=== PATIENT | male | born 1955 | race Caucasian/White ===

== ENCOUNTER 2019-08-12 18:36 | Observation (INO) | payer OTHER, MEDICARE, SELFPAY ==
[2019-08-12] VITALS (10 sets, daily range): BP systolic 145–157; BP diastolic 77–95; PULSE 58–75; RESP 13–18; TEMP 36.4–37.2; O2SAT 96–100; BMI 25.9; BMI 26.0
--- NOTE | 2019-08-12 18:42 | CT_ITS ---
We are attempting to reach an attending provider to discuss findings. An addendum with communication details will be sent when the communication is complete. STUDY: CT BRAIN WITHOUT CONTRAST REASON FOR EXAM: Male, 64 years old. Neurologic deficit RADIATION DOSAGE (If Supplied By Facility): CTDIvol = ( 44.99 ) mGy, DLP = ( 829.85 ) mGycm TECHNIQUE: Transaxial CT imaging of the brain was performed without administration of intravenous contrast material. Individualized dose optimization techniques were used for this CT. COMPARISON: No relevant priors. FINDINGS: Normal soft tissue structures. Normal calvarium. There is encephalomalacia of the left temporal lobe. There is mild diffuse atrophy. There are areas of decreased attenuation within the white matter tracts of the supratentorial brain, consistent with microvascular disease changes. There is an old lacunar infarct of the right thalamus. Normal brainstem. Normal cerebellum. There is no intracranial hemorrhage. There are no findings of an acute ischemic infarction. Normal visualized paranasal sinuses. CT/Brain/Head without Contrast IMPRESSION: Chronic involutional changes of the brain. Encephalomalacia of the left temporal lobe consistent with old infarct. Old lacunar infarct of the right thalamus. There is no intracranial hemorrhage or evidence of acute infarct. Electronically Signed: Jaxon Francis MD at 19:05 EST , Service support ,
--- NOTE | 2019-08-12 18:42 | EKG12_ITS ---
Test Reason : STROKE Blood Pressure : / mmHG Vent. Rate : 062 BPM Atrial Rate : 062 BPM P-R Int : 164 ms QRS Dur : 092 ms QT Int : 388 ms P-R-T Axes : 040 -19 032 degrees QTc Int : 393 ms Normal sinus rhythm Inferior-posterior infarct , age undetermined Abnormal ECG Confirmed by LEI GONZALEZ, FEI ([id number]), editor & co founder DAVID QUINONES ([id number]) on 08/15/2019 10:04:09 AM Referred By: Juju Li Confirmed By:FEI ODOM MD
[2019-08-12 18:48] LABS: Absolute Lymphocyte Count 3.53 X10^3/uL (0.83-4.51); Absolute Neutrophil Count 4.4 X10^3/uL (2.0-7.7); Basophil# 0.04 X10^3/uL; Basophil% 0.5 % (0-1); Eosinophil# 0.09 X10^3/uL; Hematocrit 45.5 % (40-54); Hemoglobin 15.2 g/dL (13.0-16.5); Lymphocyte # 3.53 X10^3/ul (4.0); Mean Corp Hgb Conc 33.4 g/dL (32-36); Mean Corpuscular Hgb 30.8 pg (27.0-32.0); Mean Corpuscular Volume 92.3 fL (80-94); Mean Platelet Vol. 9.7 fl (6.2-12.0); Monocyte# 0.71 X10^3/uL; NRBC Flagged by Analyzer 0 % (0-5); Neutrophil # 4.43 X10^3/uL (2.7-7.7); Neutrophil % 50.3 % (47-70); Platelet Count 257 K/mm3 (150-450); RBC Distribution Width SD 40.7 fl (35.1-43.9); Red Blood Count 4.93 M/mm3 (4.6-6.2); White Blood Count 8.8 K/mm3 (4.4-11.0)
--- NOTE | 2019-08-12 18:49 | RAD_ITS ---
STUDY: X-RAY CHEST REASON FOR EXAM: Male, 64 years old. Possible stroke TECHNIQUE: Single AP portable view of the chest. COMPARISON: None. FINDINGS: cardiac monitor leads are present. The lungs are clear and expanded. There is no demonstrated pleural abnormality. Normal size heart. Normal mediastinum and tanmay. Normal visualized pulmonary arteries. Normal visualized aortic arch and descending thoracic aorta. There are diffuse degenerative changes of the visualized thoracic spine. There are multiple old left-sided rib fractures. There is no demonstrated abnormality of the visualized soft tissue structures of the upper abdomen. RAD/Chest 1 View IMPRESSION: No acute cardiopulmonary disease process is seen. Electronically Signed: Jaxon Francis MD at 19:18 EST , Service support ,
--- NOTE | 2019-08-12 18:50 | CT_ITS ---
STUDY: CTA HEAD WITH CONTRAST REASON FOR EXAM: Male, 64 years old. RADIATION DOSAGE (If Supplied By Facility): CTDIvol = ( ) mGy, DLP = ( ) mGycm TECHNIQUE: CT angiography was performed with a multi-detector CT scanner. Data acquisition was obtained from the skull base through the vertex following intravenous administration of . MIP images were reconstructed from the axial data set. Post-processing of the angiographic images was performed, with multiplanar reformation and 3D reconstruction. Individualized dose optimization techniques were used for this CT. COMPARISON: No relevant priors. FINDINGS: Bilateral basilar skull carotids, bifurcations, anterior and middle cervical arteries and proximal branches are patent. There is a large left posterior communicating artery. Right posterior communicating artery is not seen. Posterior cerebral arteries, superior cerebellar arteries, basilar and vertebral arteries are patent. Dural venous sinuses are patent. Visualized brain parenchyma is unremarkable. IMPRESSION: 1. No large vessel occlusion. 2. Patent basal skull [place] of [place] and proximal branches. Electronically Signed: Marianelabijan Peggy, at 19:49 EST Tel , Service support , STUDY: CTA NECK WITH CONTRAST REASON FOR EXAM: Male, 64 years old. Stroke evaluation RADIATION DOSAGE (If Supplied By Facility): CTDIvol = ( ) mGy, DLP = ( ) mGycm TECHNIQUE: CT angiography with multi-detector data acquisition was performed from the aortic arch to the skull base following intravenous administration of . MIP images were reconstructed from the axial data set. Post-processing of the angiographic images was performed, with multiplanar reformation and 3D reconstruction. Individualized dose optimization techniques were used for this CT. COMPARISON: None. FINDINGS: The aortic arch has a normal branching pattern. There is brachycephalic, right greater than, right common carotid, left common carotid and left carotid arteries are patent. Bilateral external and internal carotid arteries are patent. Vertebral arteries arise bilaterally from the subclavian arteries, are codominant and patent throughout. There is mild burden of mixed calcific and lipid rich atherosclerosis. There is a 3.2 cm left parathyroid adenoma. Remainder of the soft tissues of the neck are unremarkable. There are degenerative changes in the cervical spine with mild spondylotic thecal sac stenosis at C5-C6 and C6-C7. CT/CTA Head AND Neck W/ Contrast IMPRESSION: 1. Patent cervical arteries. 2. Mild burden of atherosclerosis. 3. 3.2 cm left parathyroid adenoma. ENT referral is advised.. Electronically Signed: Alber Woods, at 19:52 EST Tel , Service support ,
--- NOTE | 2019-08-12 18:54 | ED.VIS.STROK ---
History of Present Illness Chief Complaint: Neuro S/Sx Informant: Patient, Significant Other Onset: Today Narrative: I was called to the room, this was a walk-in patient brought by his rio with a half an hour of what sounded like global aphasia, the nurse also briefly noticed the patient could not speak and was having difficulty getting any kind of words out. When I walked into the room patient had normal speech, he was lucid coherent. I did an immediate NIH stroke scale and it was 0. There is no history of recent trauma, although there is remote trauma with intracranial bleed. Past Medical History - Allergies and Home Meds Allergies/Adverse Reactions: Allergies piperacillin [From Zosyn] Allergy (Verified 08/12/19 19:20) Rash tazobactam [From Zosyn] Allergy (Verified 08/12/19 19:20) Rash Primary Care Physician: [facility],[place] [Primary Care Provider] - Past Medical History: - - History of hypertension, however his blood pressure apparently has been normal recently and has not taken any other medication, otherwise traumatic brain injury with intracranial bleed Review of Systems All systems negative except as indicated General: Denies: Fever Eyes: Denies: Visual changes - bilaterally Cardiovascular: Denies: Chest pain Respiratory: Denies: Dyspnea, Cough Gastrointestinal: Denies: Abdominal pain, Nausea Genitourinary: Denies: Dysuria Musculoskeletal: Denies: Myalgias, Arthralgias Skin: Denies: Rash, Abscess Neurological: Denies: Weakness Psych: Denies: Depression, Anxiety Hematologic: Denies: Easy bruising Allergy: Denies: Swelling of the mouth STROKE - NIHSS Initial 1a Level of Consciousness: 0 1b LOC Questions (Score 2 if aphasic/stupor): 0 1c LOC Commands (Only score 1st attempt): 0 2 Best Gaze (If aphasic, use reflexive mvmts.): 0 3 Visual: 0 4 Facial Palsy: 0 5 Motor Arm Right (UN = amputation/fusion): 0 5 Motor Arm Left: 0 6 Motor Leg Right: 0 6 Motor Leg Left: 0 7 Limb ataxia (Only + if out of proportion): 0 8 Sensory (Aphasia/stupor=0 or 1, coma=2): 0 9 Best Language: 0 10 Dysarthria (mute, coma=2, intubated=UN): 0 11 Extinction and Inattention (only scored if +): 0 Total Score: 0 General: Well nourished, Well developed Head: Normocephalic, Atraumatic Eyes: Perrl ENT: Moist mucous membranes, No rhinorrhea Neck: Supple Cardiovascular: Regular rate, Regular rhythm Respiratory: No distress, CTA bilaterally Abdomen: Soft, Nontender Extremities: No edema Skin: Normal color, No rash Neurological: Alert, Oriented x3 Diagnostic/Tx/Re-eval - Medical Decision Making Stroke Team Activated: Yes Reviewed Inclusion/Exclusion criteria: Yes - History of intracranial bleed IV Alteplase (t-PA) Administered: No - Patient has an NIH stroke scale of 0 and does not meet criteria for IV TPA Alteplase (t-PA) risks, benefits, alternative discussed: No - Does not meet criteria Not given: Patient refusal: Yes Patient does not meet criteria for TPA. NIH stroke scale is 0. I discussed with stroke neurologist at [facility] who agrees. I will admit the patient for stroke work-up. ED Disposition - Plan for ED Patient: Disposition: Psychiatric Hospital or Unit Diagnosis: TIA (transient ischemic attack)
[2019-08-12 18:56] LABS: Prothrombin Time (Protime)PT. 12.9 SECONDS (11.7-14.9)
[2019-08-12 18:57] LABS: Partial Thromboplast Time 27.4 Seconds (24.1-36.2)
[2019-08-12 19:08] LABS: Anion Gap 4 (5-15); BUN 16 mg/dL (7-18); BUN/Creat Ratio 15.7 RATIO (10-20); Calcium,Total 11.1 mg/dL (8.5-10.1); Chloride 106 mmol/L (98-107); Creatinine, Serum 1.02 mg/dL (0.70-1.30); EST Glomerular Filtration Rate 78 mL/min (>60); Est Glom Filt Rate - Afr Amer 94 mL/min (>60); Estimated Creatinine Clearance 74.55 ml/min; Glucose 87 mg/dL (74-106); Potassium 4.2 mmol/L (3.5-5.1); Sodium Level 139 mmol/L (136-145)
--- NOTE | 2019-08-12 20:26 | PCM.HP.STD ---
Problem List (1) TIA (transient ischemic attack) Status: Acute (2) Hypertension Status: Chronic Qualifiers: Hypertension type: essential hypertension Qualified Code(s): I10 - Essential (primary) hypertension (3) History of CVA (cerebrovascular accident) Status: Chronic (4) History of intracranial hemorrhage Status: Chronic (5) Anxiety and depression Status: Chronic (6) Hypercalcemia Status: Chronic (7) Parathyroid adenoma Status: Chronic History of Present Illness Date of Admission: 08/12/19 Chief Complaint: Asphasia, transient The patient is a 64 y/o M w/ PMHx: HTN not on regimen as recently hypotensive but prior was nor norvasc daily, Anxiety and Depression, Remote Hx Intracranial bleed treated at [facility] following trauma, Unknown Prior CVA noted on imaging upon current evaluation (CT head w/ L temporal lobe, lacunar infarct R thalamus) who presents to the [facility] ED on 08/12/19 with history of patient being brought in by his fianc?e with approximately 30-minute history of global aphasia, onset at 6:00 pm, presentation to the ED at 6:35 pm, noted to be unable to speak while attempting to order his meal, noting that he was cognizant of what was occurring and unable to get his words out. Upon evaluation in the emergency room patient had completely returned to his normal state with an NIH stroke scale of 0. Significant other present does state that he had no further neurological deficits or concerns at onset but she states he has been very irritable over the last week. Work-up in the ED included T 90.9, heart rate 75, BP 157/95, respiratory rate 18, 99% on room air, unremarkable CBC, unremarkable coags, BMP with calcium 11.1 otherwise unremarkable, troponin less than 0.015, CT head with chronic involutional changes of the brain with encephalomalacia of the left temporal lobe consistent with prior old infarct as well as old lacunar infarct of the right thalamic, no intracranial hemorrhage or evidence of acute infarct, CTA head neck with patent cervical arteries, mild burden of atherosclerosis, 3.2 similar left parathyroid adenoma, chest x-ray with no acute cardiopulmonary findings, EKG with SR without acute evidence of ischemia. Past Medical History Past Medical History (Chronic Problems): Chronic Problems Hypertension (Chronic) History of CVA (cerebrovascular accident) (Chronic) History of intracranial hemorrhage (Chronic) Anxiety and depression (Chronic) Hypercalcemia (Chronic) Parathyroid adenoma (Chronic) Allergies piperacillin [From Zosyn] Allergy (Verified 08/12/19 19:20) Rash tazobactam [From Zosyn] Allergy (Verified 08/12/19 19:20) Rash Home Medications: Ambulatory Orders Medication Instructions Recorded Risperidone 0.5 mg PO QHS 08/12/19 Surgical History: - - Bilateral inguinal and umbilical hernia repair, left elbow surgery following trauma. Psychiatric History: Anxiety, Depression Lives: Spouse/ Significant Other Smoking Status: Never smoker Tobacco Use: Non-smoker Alcohol: None Drugs: None - *Family History Maternal History Items: Cancer - Mother with history of throat cancer with concurrent tobacco usage. Paternal History Items: Cancer - Father with a history of prostate cancer. Sibling History Items: - Review of Systems Constitutional: Denies: Chills, Fever, Weight Change HEENT: Denies: Head Aches, Sinus Congestion, Sinus Drainage Cardiovascular: Denies: Chest Pain, Palpitations Respiratory: Denies: Cough, Shortness of breath at rest, Sputum production Gastrointestinal: Denies: Abdominal Pain, Nausea, Vomiting Genitourinary: Denies: Dysuria Musculoskeletal: Denies: Joint Pain, Joint Tenderness Skin: Denies: Rash, Wounds Neurological: Reports: - - Aphasia.. Denies: Focal weakness, Numbness, Tingling Psychiatric: Reports: Anxiety, Depression. Denies: Homicidal Ideations, Suicidal Ideations Hematologic/ Lymphatic: Denies: Easy Bruising, Easy Bleeding VTE Information - Inpt Only VTE Present on Admission: No VTE Mechan Device Prophylaxis: SCD's VTE Pharm Prophylaxis ordered?: Yes Patient Problems: Active and Suspected Problems TIA (transient ischemic attack) (Acute) Subjective: Seated upright in the ED bed, mildly irritable at having to stay but no acute distress and complete resolution of prior aphasia. Objective: Physical Examination: General: awake, alert, oriented x 3 and cooperative, seated upright in the ED bed in no apparent distress except mildly irritated. Skin: normal color, turgor, no icterus, cyanosis. HEENT: AT/NC, EOMI, PERRLA, MMM, no carotid bruits or JVD noted. Lungs: CTA bilaterally, moderate effort, mild decrease BL bases, no rales, ronchi or wheezing. Heart: Regular rate and rhythm; no gallop, rub audible. Abdomen: soft, overweight, NTTP, ND, normal BS, no HSM. Extremities: no cyanosis, clubbing, or edema. Neurological: patient awake, alert, oriented x 3; cognitive function intact; pupils equally reactive to light and accomodation; cranial nerves II-XII grossly normal, moving all 4 extremities, no focal deficits, strength preserved, finger-nose and [id number] appropriate, peripheral vision intact, sensation appropriate, negative Babinski. Psychiatric: affect appears mildly irritable but otherwise normal, no acute evidence of depressive or anxiety feelings. - Physical Exam Vitals/I&O's: Vital Signs Temp Pulse Resp BP Pulse Ox 98.9 F 62 17 145/85 H 98 08/12/19 18:38 08/12/19 20:25 08/12/19 20:25 08/12/19 20:25 08/12/19 20:25 Oxygen Delivery Method Room Air Weight: 181 lb 3.52 oz Body Mass Index (BMI) 25.9 Finger Stick Blood Glucose 87 Laboratory Results 08/12/19 18:38: WBC 8.8, RBC 4.93, Hgb 15.2, Hct 45.5, MCV 92.3, MCH 30.8, MCHC 33.4, RDW Std Deviation 40.7, RDW Coeff of [place] 12.0, Plt Count 257, MPV 9.7, Immature Gran % (Auto) 0.200, Neut % (Auto) 50.3, Lymph % (Auto) 40.0, [place] % (Auto) 8.0, Eos % (Auto) 1.0, Baso % (Auto) 0.5, Absolute Neuts (auto) 4.4, Absolute Lymphs (auto) 3.53, Nucleated RBC % 0 08/12/19 18:38: PT 12.9, INR 1.0, APTT 27.4 08/12/19 18:38: Sodium 139, Potassium 4.2, Chloride 106, Carbon Dioxide 29.0, Anion Gap 4 L, BUN 16, Creatinine 1.02, Estim Creat Clear Calc 74.55, Est GFR (MDRD) Af Amer 94, Est GFR (MDRD) Non-Af 78, BUN/Creatinine Ratio 15.7, Glucose 87, Calcium 11.1 H, Troponin I < 0.015 Assessment/Plan All Active Problems TIA (transient ischemic attack) (Acute) The patient is a 64 y/o M w/ PMHx: HTN not on regimen as recently hypotensive but prior was nor norvasc daily, Anxiety and Depression, Remote Hx Intracranial bleed treated at [facility] following trauma, Unknown Prior CVA noted on imaging upon current evaluation (CT head w/ L temporal lobe, lacunar infarct R thalamus) who presents to the [facility] ED on 08/12/19 with history of patient being brought in by his fianc?e with approximately 30-minute history of global aphasia, onset at 6:00 pm, presentation to the ED at 6:35 pm, noted to be unable to speak while attempting to order his meal, noting that he was cognizant of what was occurring and unable to get his words out. (1) Transient Global Aphasia, Resolved concerning for TIA w/ Evidence prior CVA: Work-up in the ED included T 90.9, heart rate 75, BP 157/95, respiratory rate 18, 99% on room air, unremarkable CBC, unremarkable coags, BMP with calcium 11.1 otherwise unremarkable, troponin less than 0.015, CT head with chronic involutional changes of the brain with encephalomalacia of the left temporal lobe consistent with prior old infarct as well as old lacunar infarct of the right thalamic, no intracranial hemorrhage or evidence of acute infarct, CTA head neck with patent cervical arteries, mild burden of atherosclerosis, 3.2 cm left parathyroid adenoma, chest x-ray with no acute cardiopulmonary findings, EKG with SR without acute evidence of ischemia. Will admit to PCU, will obtain MRI Brain, ECHO, PT/OT/Speech/Nutrition evaluation per protocol. Patient had Stroke Call evaluation per [facility], awaiting note. Will allow permissive HTN, initiate on asa, plavix with de-escalation after 21 days to single agent, add high dose statin w/ AM FLP, fall precautions. TSH, Mag, HgbA1c pending. (2) Hypercalcemia, chronic: Admission calcium elevated with patient noted history that this is been chronic but unclear interventions, will obtain ionized Ca level, given concurrent parathyroid findings, will obtain phos, PTH level, TSH/FT4. (3) Incidental parathyroid adenoma: CTA Neck w/ noted 3.2 cm left parathyroid adenoma, as noted elevated Ca, pending ICa as well as phos, PTH level, TSH/FT4. Will need further plans for outpatient upon discharge for continued evaluation of parathyroid findings but from discussions has already been established outpatient with ENT but unclear if current findings are known. (4) Hypertension: Not on regimen, elevated BP above goal upon presentation, given acute presentation #1 will allow permissive as concern for recurrent stroke given patient is not on correct regimen. (5) Anxiety and Depression: Continue home risperidol regimen. (6) DVT Prophylaxis: SCDs, lovenox. Code Visit OBSV E&M: [id number] Initial observation care L3
[2019-08-12] MEDS: Atorvastatin Calcium 80 MG Tablet PO (21:51)
[2019-08-12] MEDS: 0.9% Normal Saline 1,000 ML 100 ML IV (21:51)
[2019-08-12] MEDS: Clopidogrel Bisulfate 75 MG Tablet PO (21:51)
[2019-08-12] MEDS: Famotidine 20 MG Tablet PO (21:51)
[2019-08-12] MEDS: Aspirin 325 MG Tablet PO (21:51)
[2019-08-12 21:54] LABS: Hemoglobin A1c 5.1 % (4.2-6.3)
[2019-08-12] MEDS: 0.9% Saline Lock 10 ML Syringe IV (21:54)
[2019-08-12 21:58] LABS: Magnesium 2.5 mg/dL (1.6-2.6); Phosphorus 2.6 mg/dL (2.5-4.9); T4 Free Direct 1.08 ng/dL (0.76-1.46); Thyroid Stim Hormone (TSH) 2.35 uIU/mL (0.358-3.74)
[2019-08-12] MEDS: RisperiDONE 0.5 MG Tablet PO (22:46)
[2019-08-13] VITALS (7 sets, daily range): BP systolic 112–129; BP diastolic 70–76; PULSE 56–98; RESP 16; TEMP 36.2–36.6; O2SAT 94–98; BMI 25.9
[2019-08-13] MEDS: Enoxaparin 40 MG/0.4 ML Syringe SC (05:48)
[2019-08-13] MEDS: 0.9% Normal Saline 1,000 ML 100 ML IV (05:48)
--- NOTE | 2019-08-13 06:29 | MRI_ITS ---
STUDY: MRI BRAIN WITHOUT CONTRAST REASON FOR EXAM: Male, 64 years old. CVA. Episode of global aphasia. Patient has a history of TBI and 2017. TECHNIQUE: Standardized multiplanar fat and water weighted pulse sequences were obtained. COMPARISON: CT head without contrast 08/12/2019. FINDINGS: No restricted diffusion to suspect acute or subacute ischemic infarct. Cystic encephalomalacia in both temporal lobes, left greater than right are unchanged. Smaller cystic encephalomalacia with focal atrophy in the right middle frontal gyrus and the right frontal operculum. Multiple white matter T2 hyperintensity foci in both cerebral hemispheres are chronic white matter ischemic changes. Normal size of the ventricles and extra-axial spaces for the patient's age. Normal white matter tracts of the supratentorial brain. Normal bilateral basal ganglia. Normal thalami. There is no extra-axial fluid accumulation. Normal flow voids within the major intracranial circulation suggesting patency by spin echo criteria. Normal sella turcica, pituitary gland, infundibular stalk, optic chiasm and hypothalamus. Normal tectal plate and pineal gland. Normal midbrain, rian and medulla. Normal cerebellum. Normal basal cisterns. Normal bilateral temporal bones. Normal bilateral internal auditory canals. No demonstrated orbital abnormality, within the constraints of a routine brain study. Normal visualized paranasal sinuses. Normal calvarium and skull base. Normal visualized soft tissue structures. Normal visualized upper cervical spine. MRI/Brain without Contrast IMPRESSION: 1. No MRI evidence of recent ischemic infarct or acute intracranial abnormality. 2. Cystic encephalomalacia in both temporal lobes, left greater than right. 3. Smaller cystic encephalomalacia with focal atrophy in the right middle frontal gyrus and right frontal operculum. 4. Chronic white matter ischemic changes in both cerebral hemispheres. 5. No significant interval change when compared to CT head scan of 08/12/2019. Electronically Signed: Jeancarlos Garibay MD at 10:51 EST , Service support ,
[2019-08-13 06:30] LABS: Absolute Lymphocyte Count 2.86 X10^3/uL (0.83-4.51); Absolute Neutrophil Count 3.3 X10^3/uL (2.0-7.7); Basophil# 0.02 X10^3/uL; Basophil% 0.3 % (0-1); Eosinophil# 0.09 X10^3/uL; Eosinophils% 1.3 % (0-5); Hematocrit 39.3 % (40-54); Lymphocyte # 2.86 X10^3/ul (4.0); Lymphocyte % 42.1 % (19-41); Mean Corp Hgb Conc 33.1 g/dL (32-36); Mean Corpuscular Hgb 30.2 pg (27.0-32.0); Mean Corpuscular Volume 91.2 fL (80-94); Mean Platelet Vol. 9.8 fl (6.2-12.0); Monocyte# 0.49 X10^3/uL; Monocyte% 7.2 % (0-10); NRBC Flagged by Analyzer 0 % (0-5); Neutrophil # 3.32 X10^3/uL (2.7-7.7); Neutrophil % 48.8 % (47-70); Platelet Count 208 K/mm3 (150-450); RBC Distribution Width CV 12.1 % (11.6-14.6); RBC Distribution Width SD 40.8 fl (35.1-43.9); Red Blood Count 4.31 M/mm3 (4.6-6.2); White Blood Count 6.8 K/mm3 (4.4-11.0)
[2019-08-13 07:05] LABS: Anion Gap 7 (5-15); BUN 12 mg/dL (7-18); BUN/Creat Ratio 14.3 RATIO (10-20); Calcium,Total 10.4 mg/dL (8.5-10.1); Chloride 109 mmol/L (98-107); Cholesterol 134 mg/dL (200); Creatinine, Serum 0.84 mg/dL (0.70-1.30); EST Glomerular Filtration Rate 98 mL/min (>60); Est Glom Filt Rate - Afr Amer 118 mL/min (>60); Estimated Creatinine Clearance 90.53 ml/min; Glucose 85 mg/dL (74-106); High Density Lipoprotein 37 mg/dL; Potassium 3.9 mmol/L (3.5-5.1); Sodium Level 140 mmol/L (136-145); Triglycerides 87 mg/dL; Very Low Density Lipoprotein 17 mg/dL (5-40)
[2019-08-13 07:05] LABS: Bedside Glucose 87 mg/dL (70-110)
[2019-08-13] MEDS: Aspirin 81 MG TAB.CHEW PO (08:19)
[2019-08-13] MEDS: Famotidine 20 MG Tablet PO (08:19)
[2019-08-13] MEDS: Clopidogrel Bisulfate 75 MG Tablet PO (08:19)
[2019-08-13 11:09] LABS: Amphetamine Urine VISTA NEGATIVE (<1000 ng/mL); Barbiturate Urine VISTA NEGATIVE (< 200 ng/mL); Benzodiazepine Urine VISTA NEGATIVE (< 200 ng/mL); Cocaine Urine VISTA NEGATIVE (< 300 ng/mL); Ecstacy Urine VISTA NEGATIVE (< 500 ng/mL); Methadone Urine VISTA NEGATIVE (< 300 ng/mL); PCP Urine VISTA NEGATIVE (< 25 ng/mL); THC Urine VISTA NEGATIVE (< 50 ng/mL); Vista UDS pH Range 5
--- NOTE | 2019-08-13 16:22 | PCM.DC ---
- Discharge Diagnoses Current Active Problems: Current Active and Chronic Problems TIA (transient ischemic attack) (Acute) Hypertension (Chronic) History of CVA (cerebrovascular accident) (Chronic) History of intracranial hemorrhage (Chronic) Anxiety and depression (Chronic) Hypercalcemia (Chronic) Parathyroid adenoma (Chronic) You will use the following diet at home:: No restrictions Your food should be the consistency of: Regular Your liquids should be the consistency of: Regular/Thin Discharge Activity: Return to Normal Activity Weight Bearing Status: Full weight bearing Allergies/Adverse Reactions: Allergies piperacillin [From Zosyn] Allergy (Verified 08/12/19 19:20) Rash tazobactam [From Zosyn] Allergy (Verified 08/12/19 19:20) Rash Medications to take at Discharge Risperidone 0.5 mg PO QHS 08/12/19 Aspirin [Aspirin, Baby] 81 mg PO DAILY@0800 tab.chew 08/13/19 Primary Care Physician: [facility],[place] [Primary Care Provider] - Please follow up with your Primary Care Physician in: as scheduled Test Results: Test results from this visit will be discussed in further detail at your follow-up appointment, if applicable.
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
[2019-08-14 09:44] LABS: PTHIN 128.9 pg/mL (18.4-80.1)
== END 2019-08-13 18:52 | disposition home or self-care (01) | DRG 93 ==
LOC: ED 20:40 → PCU 08-13 07:20
PROVIDERS: Admitting Provider Family Medicine; Emergency Provider Emergency Medicine; Referring Provider Family Medicine; Visit Provider Internal Medicine
DX: R47.01 Aphasia (principal); F32.9 Major depressive disorder, single episode, unspecified; I10 Essential (primary) hypertension; F41.9 Anxiety disorder, unspecified; D35.1 Benign neoplasm of parathyroid gland; E83.52 Hypercalcemia; Z86.73 Personal history of transient ischemic attack (TIA), and cerebral infarction without residual deficits; R29.700 NIHSS score 0; Z79.899 Other long term (current) drug therapy
CPT/HCPCS: 36415; 70450; 70496; 70498; 70551; 71045; 80048; 80061; 80307; 82330; 82962; 83036; 83735; 83970; 84100; 84439; 84443; 84484; 85025; 85610; 85730; 92610; 93005; 96360; 96361; 96372; 97161; 97166; 97802; 99218; 99251; 99285; J7030; Q9967; A4216; G0378; G0463

== ENCOUNTER 2020-02-10 20:49 | Inpatient (IN) | payer MEDICARE, MEDICAID, SELFPAY ==
[2019-08-13 08:05] VITALS: BMI 25.9
[2020-02-10] VITALS (11 sets, daily range): BP systolic 121–129; BP diastolic 76–90; PULSE 93–125; RESP 12–20; TEMP 36–36.8; O2SAT 92–98; BMI 28.4
--- NOTE | 2020-02-10 20:54 | EKG12_ITS ---
Test Reason : UNRESPONSIVE Blood Pressure : / mmHG Vent. Rate : 126 BPM Atrial Rate : 126 BPM P-R Int : 144 ms QRS Dur : 100 ms QT Int : 322 ms P-R-T Axes : 046 012 055 degrees QTc Int : 466 ms Sinus tachycardia Inferior-posterior infarct , age undetermined Abnormal ECG Confirmed by LEI GONZALEZ, FEI ([id number]), editor managing newspaper YOLIS CRUZ ([id number]) on 02/13/2020 3:08:55 PM Referred By: MARIA ALEJANDRA Confirmed By:FEI ODOM MD
--- NOTE | 2020-02-10 20:54 | CT_ITS ---
STUDY: CT BRAIN WITHOUT CONTRAST REASON FOR EXAM: Male, 64 years old. FOUND UNRESPONSIVE,FORCED DEVIATION TO LT RADIATION DOSAGE (If Supplied By Facility): CTDIvol = ( 44.99 ) mGy, DLP = ( 829.85 ) mGycm TECHNIQUE: Transaxial CT imaging of the brain was performed without administration of intravenous contrast material. Individualized dose optimization techniques were used for this CT. COMPARISON: Prior study of 08/12/2019 FINDINGS: Normal soft tissue structures. Normal calvarium. There is mild cerebral atrophy with widening of the extra-axial spaces and ventricular dilatation. There is again demonstrated a region of encephalomalacia of the left temporal lobe, appearing similar to the previous study. There is an old lacunar infarct of the deep right insular lobe. There are areas of decreased attenuation within the white matter tracts of the supratentorial brain, consistent with microvascular disease changes. Normal basal ganglia and thalami. Normal brainstem. Normal cerebellum. There is no intracranial hemorrhage. There are no findings of an acute ischemic infarction. Normal visualized paranasal sinuses. CT/Brain/Head without Contrast IMPRESSION: Chronic involutional changes of the brain. Encephalomalacia of the left temporal lobe stable in the interval. Old lacunar infarct of the deep right insular lobe. There is no evidence of intracranial hemorrhage or acute infarct. Findings are similar to the previous study. CTA head and/or MRI may be helpful for further evaluation at this time. N.B. : The above information has been verbally conveyed by Jaxon Francis MD to Dr. Eric MD, on 02/10/2020 21:39:55 (ET). Electronically Signed: Jaxon Francis MD at 21:30 EDT , Service support ,
[2020-02-10] MEDS: Etomidate 20 MG/10 ML Vial IV (21:00)
[2020-02-10] MEDS: Rocuronium Bromide 50 MG/5 ML Vial 100 MG IV (21:01)
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
[2020-02-10] MEDS: LORazepam 2 MG/ML Syringe IV (21:05)
--- NOTE | 2020-02-10 21:08 | CT_ITS ---
6 STUDY: CTA HEAD AND NECK WITH CONTRAST REASON FOR EXAM: Male, 64 years old. CVA,FOUND UNRESPONSIVE,LAST SEEN WELL @ 430 AM TODAY,FORCED DEVIATION TO LT -- HX:CVA,HTN,INTRACRANIAL BLEED,PARATHYROID ADENOMA RADIATION DOSAGE (If Supplied By Facility): CTDIvol = ( 17.28 ) mGy, DLP = ( 665.46 ) mGycm TECHNIQUE: CT angiography was performed with a multi-detector CT scanner. Data acquisition was obtained from the skull base through the vertex following intravenous administration of IV 100mL [id number]-[id number]. MIP images were reconstructed from the axial data set. Post-processing of the angiographic images was performed, with multiplanar reformation and 3D reconstruction. Individualized dose optimization techniques were used for this CT. COMPARISON: Noncontrast CT scan of earlier today. FINDINGS: Normal bilateral petrous carotid arteries. Normal right cavernous carotid artery with a normal supraclinoid bifurcation. Normal left cavernous carotid artery with a normal supraclinoid bifurcation. Normal right A1 segments of the anterior cerebral artery. Normal left A1 segments of the anterior cerebral artery. Normal intact anterior communicating artery (ACOM). Normal bilateral A2 segments of the anterior cerebral arteries. Normal right M1 and M2 segments of the middle cerebral arteries, with a normal M1 bifurcation. Normal left M1 and M2 segments of the middle cerebral arteries, with a normal M1 bifurcation. Normal right posterior communicating artery (PCOM). Normal left posterior communicating artery (PCOM). Normal bilateral vertebral arteries. Normal basilar artery with a normal basilar bifurcation. The visualized bilateral superior cerebellar (SCA) arteries are normal. Normal bilateral P1, P2 and visualized P3 segments of the posterior cerebral arteries. There is no demonstrated aneurysm of the [place]. There is no demonstrated abnormality of the visualized brain. AORTIC ARCH: Normal visualized aortic arch. Normal origins of the brachiocephalic, left common carotid, and left subclavian arteries. RIGHT CAROTID ARTERIES: Normal right common carotid artery (CCA). There is mild atherosclerotic plaque formation with minimal narrowing of the right carotid bulb. There is mild atherosclerotic plaque formation of the origin of the right internal carotid artery with less than 50% cross sectional diameter stenosis. Normal visualized cervical portion of the right internal carotid artery. Normal origin of the right external carotid artery (ECA). LEFT CAROTID ARTERIES: Normal left common carotid artery (CCA). There is mild atherosclerotic plaque formation with minimal narrowing of the left carotid bulb. There is mild atherosclerotic plaque formation of the origin of the left internal carotid artery with less than 50% cross sectional diameter stenosis. Normal visualized cervical portion of the left internal carotid artery. Normal origin of the left external carotid artery (ECA). VERTEBRAL ARTERIES: Normal bilateral vertebral arteries. Endotracheal tube is in satisfactory position within the trachea and above the miryam. Visualized lung apices show opacification of the right pulmonary apex. CT/CTA Head AND Neck W/ Contrast IMPRESSION: CTA Head and neck with contrast is within normal limits for age. N.B. : The above information has been verbally conveyed by Jerrod Arias MD to Dr. Madhu Reyes MD, on 02/10/2020 21:54:41 (ET). Electronically Signed: Jerrod Arias MD at 21:51 EDT , Service support ,
[2020-02-10 21:15] LABS: Bedside Glucose 108 mg/dL (70-110)
[2020-02-10 21:21] LABS: Absolute Lymphocyte Count 1.24 X10^3/uL (0.83-4.51); Absolute Neutrophil Count 15.8 X10^3/uL (2.0-7.7); Basophil# 0.03 X10^3/uL; Basophil% 0.2 % (0-1); Eosinophil# 0.04 X10^3/uL; Eosinophils% 0.2 % (0-5); Hematocrit 46.9 % (40-54); Hemoglobin 15.7 g/dL (13.0-16.5); Lymphocyte # 1.24 X10^3/ul (4.0); Lymphocyte % 6.7 % (19-41); Mean Corp Hgb Conc 33.5 g/dL (32-36); Mean Corpuscular Hgb 31.1 pg (27.0-32.0); Mean Corpuscular Volume 92.9 fL (80-94); Mean Platelet Vol. 10.3 fl (6.2-12.0); Monocyte# 1.32 X10^3/uL; Monocyte% 7.2 % (0-10); NRBC Flagged by Analyzer 0 % (0-5); Neutrophil # 15.76 X10^3/uL (2.7-7.7); Neutrophil % 85.3 % (47-70); POSITIVE MORPHOLOGY YES; Platelet Count 217 K/mm3 (150-450); RBC Distribution Width CV 12.5 % (11.6-14.6); RBC Distribution Width SD 42.6 fl (35.1-43.9); Red Blood Count 5.05 M/mm3 (4.6-6.2); White Blood Count 18.5 K/mm3 (4.4-11.0)
[2020-02-10 21:22] LABS: Differential Indicated SCAN CRITERIA MET
[2020-02-10 21:27] LABS: International Normalized Ratio 1.1; Partial Thromboplast Time 23.6 Seconds (24.1-36.2); Prothrombin Time (Protime)PT. 13.8 SECONDS (11.7-14.9)
--- NOTE | 2020-02-10 21:28 | ED.RN ---
girlfriend called in with new last known well time of 154 where he was seen on [facility] cam talking with [facility].
[2020-02-10 21:36] LABS: AST(SGOT) 26 U/L (15-37); Alanine Aminotransfer ALT/SGPT 27 U/L (16-61); Alkaline Phosphatase 97 U/L (45-117); Anion Gap 5 (5-15); BUN 19 mg/dL (7-18); BUN/Creat Ratio 15.1 RATIO (10-20); Calcium,Total 10.5 mg/dL (8.5-10.1); Chloride 110 mmol/L (98-107); Creatinine, Serum 1.26 mg/dL (0.70-1.30); EST Glomerular Filtration Rate 61 mL/min (>60); Est Glom Filt Rate - Afr Amer 74 mL/min (>60); Estimated Creatinine Clearance 60.35 ml/min; Globulin 3.9 g/dL (2.2-4.2); Glucose 117 mg/dL (74-106); Protein, Total 7.9 g/dL (6.4-8.2); Sodium Level 140 mmol/L (136-145)
[2020-02-10 21:48] LABS: Differential Comment SCANNED; Platelet Estimate ADEQUATE (ADEQ); Red Cell Morphology NORM C+C NORMAL (NORM C&C)
--- NOTE | 2020-02-10 21:59 | PCM.HP.STD ---
Problem List (1) CVA (cerebral vascular accident) Status: Acute (2) TIA (transient ischemic attack) Status: Acute (3) Hypertension Status: Chronic Qualifiers: Hypertension type: essential hypertension Qualified Code(s): I10 - Essential (primary) hypertension (4) History of CVA (cerebrovascular accident) Status: Chronic (5) History of intracranial hemorrhage Status: Chronic (6) Anxiety and depression Status: Chronic (7) Hypercalcemia Status: Chronic (8) Parathyroid adenoma Status: Chronic (9) Status epilepticus Status: Acute (10) Acute respiratory failure with hypoxia Status: Acute (11) Aspiration pneumonitis Status: Acute History of Present Illness Date of Admission: 02/10/20 Chief Complaint: Unresponsiveness. 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 Per 's review of home camera patient got home from paying the water pill at 1547. When her got home at 1952 patient was sitting in a chair and he was unresponsive. Patient was noted to be drooling. His right hand was in a decorticate posture reports the who is a nurse. Patient appears to have forced deviation of his eyes and he was on looking at one direction. Emergency department doctor reported that on presentation he saw some mild movement of the left upper extremity and left leg; but with no movement at the right extremities. His initial Tyler coma scale at emergency department was 3 so patient was emergently intubated. At the emergency department patient was found to have leukocytosis. CT of the brain showed old encephalomalacia. CT head and neck was unremarkable for any large vessel obstruction. Emergency department doctor considered the patient might be in status epilepticus. Reportedly emergency department discussed the case with Dr. Vázquez, radio interference expert and the plan was that if an EEG can be done in a.m. patient will be admitted at a hospital. Emergency department doctor checked and EEG can be done in a.m. Past Medical History Past Medical History (Chronic Problems): Chronic Problems Hypertension (Chronic) History of CVA (cerebrovascular accident) (Chronic) History of intracranial hemorrhage (Chronic) Anxiety and depression (Chronic) Hypercalcemia (Chronic) Parathyroid adenoma (Chronic) Allergies piperacillin [From Zosyn] Allergy (Verified 08/12/19 19:20) Rash tazobactam [From Zosyn] Allergy (Verified 08/12/19 19:20) Rash Home Medications: Ambulatory Orders Medication Instructions Recorded Risperidone 1 mg PO QHS 08/12/19 Aspirin 325 mg PO DAILY 02/10/20 Thiamine HCl 100 mg PO DAILY 02/10/20 Thiamine HCl [Vitamin B-1] 50 mg PO QHS 02/10/20 Vitamin A 02/10/20 Vitamin C 02/10/20 Vitamin E 02/10/20 Surgical History: - - Bilateral inguinal and umbilical hernia repair, left elbow surgery following trauma. Psychiatric History: Anxiety, Depression Smoking Status: Never smoker - *Family History Maternal History Items: Cancer - Mother with history of throat cancer with concurrent tobacco usage. Paternal History Items: Cancer - Father with a history of prostate cancer. Sibling History Items: - Review of Systems Unable to obtain accurate/complete ROS d/t: unresponsive and intubated. 12 point ROS obtained from in hpi. VTE Information - Inpt Only VTE Present on Admission: No VTE Mechan Device Prophylaxis: SCD's VTE Pharm Prophylaxis ordered?: No Patient Problems: Active and Suspected Problems Status epilepticus (Acute) Acute respiratory failure with hypoxia (Acute) Aspiration pneumonitis (Acute) CVA (cerebral vascular accident) (Acute) - Physical Exam Vitals/I&O's: Vital Signs Temp Pulse Resp BP Pulse Ox 98.3 F 118 H 14 121/86 H 92 02/10/20 20:50 02/10/20 21:35 02/10/20 21:35 02/10/20 20:54 02/10/20 21:35 Oxygen Flow Rate (L/min) 15 Oxygen Delivery Method Non-Rebreather Weight: 89.8 kg Body Mass Index (BMI) 28.4 Finger Stick Blood Glucose 108 General: - - Intubated. Comatose. HEENT: Atraumatic, - - Pupils reactive to light. Anisocoria with right pupil larger than left pupil. Neck: Trachea Midline Lungs: Clear to auscultation, No wheeze, No rales, - Cardiovascular: Normal S1, Normal S2, Tachycardic Abdomen: Bowel Sounds Present, Soft, Non Tender Extremities: No edema, Capillary Refill Less than 3 Seconds Skin: No rashes, No breakdown Musculoskeletal: No Tenderness to Palpation of Joints or Extremities, No Muscle Wasting Neurological: - - Comatose. Gag reflex present. Pupils react to light. Anisocoria with right pupil larger than left pupil. Psych/Mental Status: - - Comatose. Laboratory Results 02/10/20 21:02: POC Glucose 108 02/10/20 21:10: WBC 18.5 H, RBC 5.05, Hgb 15.7, Hct 46.9, MCV 92.9, MCH 31.1, MCHC 33.5, RDW Std Deviation 42.6, RDW Coeff of Chelo 12.5, Plt Count 217, MPV 10.3, Immature Gran % (Auto) 0.400, Neut % (Auto) 85.3 H, Lymph % (Auto) 6.7 L, Hill % (Auto) 7.2, Eos % (Auto) 0.2, Baso % (Auto) 0.2, Absolute Neuts (auto) 15.8 H, Absolute Lymphs (auto) 1.24, Nucleated RBC % 0, Differential Comment SCANNED, Platelet Estimate ADEQUATE, RBC Morphology NORM C+C 02/10/20 21:10: PT 13.8, INR 1.1, APTT 23.6 L 02/10/20 21:10: Sodium 140, Potassium 4.0, Chloride 110 H, Carbon Dioxide 25.0, Anion Gap 5, BUN 19 H, Creatinine 1.26, Estim Creat Clear Calc 60.35, Est GFR (MDRD) Af Amer 74, Est GFR (MDRD) Non-Af 61, BUN/Creatinine Ratio 15.1, Glucose 117 H, Calcium 10.5 H, Total Bilirubin 0.70, AST 26, ALT 27, Alkaline Phosphatase 97, Troponin I 0.358 H, Total Protein 7.9, Albumin 4.0, Globulin 3.9, Albumin/Globulin Ratio 1.0 02/10/20 21:42: Lactic Acid Pending Current Medications Sodium Chloride 1,000 ml/ N/A 1,000 mls @ 89.8 mls/hr IV .[id number] LA Stop: 02/11/20 21:11 Labetalol HCl (Trandate) 20 mg IV X1 PRN PRN Reason: BLOOD PRESSURE Assessment/Plan All Active Problems TIA (transient ischemic attack) (Acute) Status epilepticus (Acute) Acute respiratory failure with hypoxia (Acute) Aspiration pneumonitis (Acute) CVA (cerebral vascular accident) (Acute) The patient is a 64 year old M with a significant history of traumatic brain injury on May 132016 with only received psychiatry condition was brought to emergency department for unresponsiveness; drooling; for deviation of the eye; and with minimal movement only at the left extremity and not at the right extremity consistent with probable acute stroke. Acute stroke NINDS NIH Scale at emergency department was 30. Continue serial NINDS NIH Scale assessments. CT of the head showed old encephalomalacia. Continue patient on ventilator. OG tube in place. -Check Hba1c, Lipid level Patient to remain intubated. Rectal aspirin daily. Received Ativan initially for possible status epilepticus. Discussed emergency department doctor who will start Keppra. We will continue Keppra inpatient.. Permissive hypertension. Control blood pressure with labetalol for systolic blood pressure of more than 220 or diastolic blood pressure of more than 120. MRI/MRAM of head; brain; and neck. Echocardiogram ordered. Consult radio interference expert. Aspiration pneumonia/aspiration pneumonitis. Started on clindamycin IV at the emergency department.. Of note patient is allergic to Zosyn. Clindamycin continued inpatient. Elevated troponin EKG showed incomplete right bundle branch block. Unremarkable otherwise. Trend troponin. Aspirin rectally. Probable coffee-ground emesis. Noted in OG tube. Lilian reported patient drank coffee in a.m. We will get occult lab for gastric secretions from G-tube. GI prophylaxis and DVT prophylaxis. Stress ulcer prophylaxis Protonix. DVT prophylaxis Subcutaneous heparin. Miscellaneous: His fianc?e of about 20 year Jose Holland ([phone]) who was physically at the bedside reported that patient would not like to live like a vegetable and at his current stage thinks that patient would not like CPR unless patient is alert and oriented. Per ranjit? living will is at [facility] and she will make plans to get living will to our hospital. Per information provided by ranjit? patient will be a DNR CCA with no chest compression at this time. Patient has already been intubated and on ventilator. Inpatient E&M: [id number] Init Hosp L3
--- NOTE | 2020-02-10 22:09 | CM.ED ---
Social Work Consult: Stroke Alert Attempted to call patient significant other to offer support, no answer. Nursing staff stating to have spoken with significant other and updated significant other on current status of patient. Bree MCLAIN, RANDA
--- NOTE | 2020-02-10 22:20 | RAD_ITS ---
STUDY: X-RAY CHEST REASON FOR EXAM: Male, 64 years old. UNRESPONSIVE. STROKE ALERT. INTUBATION. TECHNIQUE: Single AP portable view of the chest. 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 There is an endotracheal tube with the tip 7.5 cm proximal to the miryam. Nasogastric tube is noted with the tip in the abdomen out of the [id number] of the image. There is right upper lobe infiltrate and/or atelectasis. There is no demonstrated pleural abnormality. Normal size heart. Normal mediastinum and tanmay. Normal visualized pulmonary arteries. Normal visualized aortic arch and descending thoracic aorta. Normal visualized thoracic spine. There are multiple lower left-sided rib fractures. There is no demonstrated abnormality of the visualized soft tissue structures of the upper abdomen. RAD/Chest 1 View IMPRESSION: Limited inspiration. Hazy right upper lobe infiltrate and/or atelectasis. Nasogastric and endotracheal tubes noted appearing in adequate position. Multiple old left-sided rib fractures are noted. There are degenerative changes of the thoracic spine. Electronically Signed: Jaxon Francis MD at 22:52 EDT , Service support ,
[2020-02-10 22:37] LABS: Lactic Acid 1.2 mmol/L (0.4-1.9)
[2020-02-10] MEDS: levETIRAcetam IV 1,000 MG/100 ML BAG 400 MG IV (22:43)
[2020-02-10 23:23] LABS: Allen Test POS; Blood Gas Specimen Type ART; Mode A-C; O2 Delivery Device Vent; SITE R RADIAL
[2020-02-10 23:24] LABS: FI02 70; PEEP 5; PO2 76 mmHG (75-100); RR 14; Time Given 2314; Vt 450; pCO2 49.5 mmHg (35-45); pH 7.24 (7.35-7.45)
[2020-02-10 23:25] LABS: Base Excess -6 mmol/L (-2 to +2); Bicarbonate 21.2 mmol/L (22-26); SO2 92 % (95-99); Total Carbon Dioxide 23 mmol/L
[2020-02-11] VITALS (38 sets, daily range): BP systolic 115–144; BP diastolic 70–98; PULSE 67–97; RESP 14–20; TEMP 36.3–37.3; O2SAT 93–100; BMI 26.8
--- NOTE | 2020-02-11 00:10 | NURSING ---
Pt is intubated, no sedation;spontaneous movement to L arm and L foot noted, pt does not move off bed or follow commands; unable to fully complete NIHSS assessment d/t pt's current condition. Pt does not withdraw from pain to nailbeds on either hand, but does withdraw when toe nailbeds are pressured, Lt stronger than Rt.
[2020-02-11] MEDS: 0.9% Normal Saline 1,000 ML 75 ML IV ×2 (00:29→15:15)
[2020-02-11] MEDS: 0.9% Saline Lock 10 ML Syringe IV ×3 (00:31→12:03)
[2020-02-11 00:38] LABS: Hemoglobin A1c 5.2 % (3.8-5.6)
--- NOTE | 2020-02-11 01:20 | RAD_ITS ---
STUDY: X-RAY CHEST REASON FOR EXAM: Male, 64 years old patient with recent endotracheal tube placement. TECHNIQUE: Single AP portable view of the chest. COMPARISON: February 10, 2020. FINDINGS: The tip of endotracheal tube is at the aortic arch. Enteric tube is present with the distal end below the hemidiaphragms. Cardiac monitoring leads are present. The lungs are expanded. There appears to be right sided groundglass attenuation. There is also airspace consolidation in the mid right lung. There is vague increased attenuation left hemithorax which may be related either to pleural thickening or air space disease. There appears to be a small right-sided pleural effusion. Normal size heart. Normal mediastinum and tanmay. Normal visualized pulmonary arteries. There is atherosclerotic tortuosity of the aortic arch and descending thoracic aorta. Normal visualized thoracic spine. There is deformity of the left clavicle as well as multiple left-sided ribs that suggests the sequela of old fractures. There is no demonstrated abnormality of the visualized soft tissue structures of the upper abdomen. RAD/Chest 1 View (Portable) IMPRESSION: 1. Persistent right-sided airspace disease and atelectasis which appears smaller than it did on the previous study. 2. Appropriate positioning of endotracheal tube. Electronically Signed: Allie Moctezuma MD at 2:51 EDT , Service support ,
--- NOTE | 2020-02-11 02:36 | NURSING ---
Cont to be unable to accurately complete NIHSS d/t pt condition.
--- NOTE | 2020-02-11 02:48 | NURSING ---
Pt awake, makes eye contact and tracks, attempting to sit up in bed; BLE moving w/R<L,LUE noted off of bed;pt does not follow commands or nod head to answer any questions. Multiple staff attempted to direct pt unsuccessfully. Pt then closes eyes and stops moving.
[2020-02-11] MEDS: fentaNYL 100 MCG/2 ML Ampul 25 MCG IV (03:11)
--- NOTE | 2020-02-11 03:35 | NURSING ---
Staff attempt to get a physical response from pt unsuccessful.
[2020-02-11 04:10] LABS: Absolute Lymphocyte Count 1.04 X10^3/uL (0.83-4.51); Absolute Neutrophil Count 11.9 X10^3/uL (2.0-7.7); Basophil# 0.02 X10^3/uL; Basophil% 0.1 % (0-1); Hematocrit 45.5 % (40-54); Hemoglobin 14.9 g/dL (13.0-16.5); Lymphocyte # 1.04 X10^3/ul (4.0); Lymphocyte % 7.6 % (19-41); Mean Corp Hgb Conc 32.7 g/dL (32-36); Mean Corpuscular Hgb 30.2 pg (27.0-32.0); Mean Corpuscular Volume 92.3 fL (80-94); Monocyte# 0.73 X10^3/uL; Monocyte% 5.3 % (0-10); NRBC Flagged by Analyzer 0 % (0-5); Neutrophil # 11.87 X10^3/uL (2.7-7.7); Neutrophil % 86.6 % (47-70); Platelet Count 212 K/mm3 (150-450); RBC Distribution Width CV 12.5 % (11.6-14.6); Red Blood Count 4.93 M/mm3 (4.6-6.2); White Blood Count 13.7 K/mm3 (4.4-11.0)
--- NOTE | 2020-02-11 04:17 | NURSING ---
Pt cont to move LUE and BLE(L>R) on own, but does not follow any commands. Pt does not track but appears to make eye contact. Very difficult to assess NIHSS d/t pt condition.
[2020-02-11 04:26] LABS: Anion Gap 7 (5-15); BUN 17 mg/dL (7-18); BUN/Creat Ratio 15.3 RATIO (10-20); Chloride 109 mmol/L (98-107); Cholesterol 137 mg/dL (200); Creatinine, Serum 1.11 mg/dL (0.70-1.30); EST Glomerular Filtration Rate 71 mL/min (>60); Est Glom Filt Rate - Afr Amer 85 mL/min (>60); Estimated Creatinine Clearance 68.51 ml/min; Glucose 126 mg/dL (74-106); High Density Lipoprotein 42 mg/dL; Potassium 3.8 mmol/L (3.5-5.1); Sodium Level 140 mmol/L (136-145); Triglycerides 71 mg/dL; Very Low Density Lipoprotein 14 mg/dL (5-40)
[2020-02-11] MEDS: Chlorhexidine 15 ML PO ×2 (04:44→12:03)
[2020-02-11] MEDS: fentaNYL drip 100 ML 2.5 MCG IV (04:44)
[2020-02-11 04:59] LABS: CPK Total, Creatine Kinase 756 U/L (39-308); Triglycerides 76 mg/dL
--- NOTE | 2020-02-11 05:55 | EKG12_ITS ---
Test Reason : AM EKG Blood Pressure : / mmHG Vent. Rate : 083 BPM Atrial Rate : 083 BPM P-R Int : 164 ms QRS Dur : 096 ms QT Int : 378 ms P-R-T Axes : 062 -08 052 degrees QTc Int : 444 ms Normal sinus rhythm Inferior-posterior infarct , age undetermined , cannot be excluded Abnormal ECG Confirmed by SONIA GONZALEZ, HARINI ([id number]), editor managing director YOLIS CRUZ ([id number] on 02/15/2020 2:58:02 PM Referred By: KYLIE Confirmed By:HARINI SCOTT MD
--- NOTE | 2020-02-11 06:06 | PCM.CON.CC ---
Reason for Consult Date of Consultation: 02/11/20 Reason for Consultation: Acute CVA/acute respiratory failure History of Present Illness: The patient is a 64-year-old male, with a history as outlined below, who presented to the emergency department on February 09 with acute encephalopathy. The patient was last known to be in his normal state of health at approximately 1547 on February 09. His subsequently found him in an unresponsive state approximately 4 hours later. Further history regarding the patient's hospitalization was obtained primarily via chart review, the patient is currently intubated and there is no family available at the bedside. On presentation to the emergency department, the patient was noted to be afebrile but was tachycardic and hypoxemic. Laboratory evaluation revealed an elevated white blood cell count to 18,000. INR was normal at 1.1. Chemistry profile was largely unrevealing. Initial troponin was elevated to 0.358. Head CT revealed chronic changes without acute infarction or hemorrhage. CTA head and neck was within normal limits. Chest x-ray revealed an upper lobe infiltrate. The patient's initial NIH score was noted to be 30. He was essentially comatose with a GCS score of 3. The patient was emergently intubated and the patient was started on empiric antimicrobial therapy. The patient was subsequently admitted to the medical intensive care unit for further management. It appears that the patient was placed on Keppra over concerns that his presentation could represent nonconvulsive status. Of note, a urine toxicology screen was never sent. Past Medical History Past Medical History (Chronic Problems): Chronic Problems Hypertension (Chronic) History of CVA (cerebrovascular accident) (Chronic) History of intracranial hemorrhage (Chronic) Anxiety and depression (Chronic) Hypercalcemia (Chronic) Parathyroid adenoma (Chronic) Allergies piperacillin [From Zosyn] Allergy (Verified 02/10/20 22:04) Rash tazobactam [From Zosyn] Allergy (Verified 02/10/20 22:04) Rash Home Medications: Ambulatory Orders Medication Instructions Recorded Risperidone 1 mg PO QHS 08/12/19 Aspirin 325 mg PO DAILY 02/10/20 Thiamine HCl 100 mg PO DAILY 02/10/20 Thiamine HCl [Vitamin B-1] 50 mg PO QHS 02/10/20 Vitamin A 02/10/20 Vitamin C 02/10/20 Vitamin E 02/10/20 Surgical History: - - Bilateral inguinal and umbilical hernia repair, left elbow surgery following trauma. Psychiatric History: Anxiety, Depression Smoking Status: Never smoker - *Family History Maternal History Items: Cancer - Mother with history of throat cancer with concurrent tobacco usage. Paternal History Items: Cancer - Father with a history of prostate cancer. Sibling History Items: - Review of Systems Unable to obtain accurate/complete ROS d/t: Due to current intubation and mechanical ventilation status Patient Problems: Active and Suspected Problems Status epilepticus (Acute) Acute respiratory failure with hypoxia (Acute) Aspiration pneumonitis (Acute) CVA (cerebral vascular accident) (Acute) Objective: The patient's most recent lab work, culture data and imaging studies have all been personally reviewed. Sputum and blood cultures are pending. - Physical Exam Vitals/I&O's: Vital Signs Temp Pulse Resp BP Pulse Ox 98.1 F 83 14 137/91 H 97 02/11/20 04:00 02/11/20 05:00 02/11/20 05:00 02/11/20 05:00 02/11/20 05:00 Oxygen Flow Rate (L/min) 15 Oxygen Delivery Method Mechanical Ventilator Weight: 187 lb 2.759 oz Body Mass Index (BMI) 26.8 Finger Stick Blood Glucose 108 Intake and Output for Last 24 Hours 02/09/20 02/10/20 02/11/20 23:59 23:59 23:59 Intake Total 154 / 154 484.67 / 484.67 Balance 154 / 154 484.67 / 484.67 General: - - Intubated and mechanically ventilated. HEENT: Atraumatic, Normocephalic Oral: No Gingival or Mucosal Lesions/ Ulcerations, - - Endotracheal and OG tube in place Neck: Supple, No Nodes, Trachea Midline Lungs: No rhonchi, No wheeze, No rales, Diminished Cardiovascular: Regular rate, Regular Rhythm, Normal S1, Normal S2, No murmurs Abdomen: Bowel Sounds Present, Soft, Non Tender Extremities: No clubbing, No cyanosis Skin: No breakdown Musculoskeletal: No Muscle Wasting Lymphatic: No Cervical, Supraclavicular, or Inguinal Adenopathy Neurological: - - The patient is agitated, restless and currently non-directable. Labs (Last 48 Hours) 02/10/20 02/10/20 02/10/20 21:02 21:10 21:10 WBC 18.5 H RBC 5.05 Hgb 15.7 Hct 46.9 MCV 92.9 MCH 31.1 MCHC 33.5 RDW Std Deviation 42.6 RDW Coeff of [place] 12.5 Plt Count 217 MPV 10.3 Immature Gran % (Auto) 0.400 Neut % (Auto) 85.3 H Lymph % (Auto) 6.7 L [place] % (Auto) 7.2 Eos % (Auto) 0.2 Baso % (Auto) 0.2 Absolute Neuts (auto) 15.8 H Absolute Lymphs (auto) 1.24 Nucleated RBC % 0 Differential Comment SCANNED Platelet Estimate ADEQUATE RBC Morphology NORM C+C PT 13.8 INR 1.1 APTT 23.6 L Specimen Type Sample Site pH Bicarbonate Actual POC Total CO2 Base Excess O2 Saturation O2 % ABG pCO2 ABG pO2 Benny Test Respiration Rate O2 Delivery Device Liter Flow Minute Volume Vent Mode Tidal Volume POC PEEP EPAP Blood Gas Notified Whom Blood Gas Notified Time Sodium Potassium Chloride Carbon Dioxide Anion Gap BUN Creatinine Estim Creat Clear Calc Est GFR (MDRD) Af Amer Est GFR (MDRD) Non-Af BUN/Creatinine Ratio Glucose Hemoglobin A1c Lactic Acid Calcium Total Bilirubin AST ALT Alkaline Phosphatase Total Creatine Kinase Troponin I Total Protein Albumin Globulin Albumin/Globulin Ratio Triglycerides Cholesterol LDL Cholesterol VLDL Cholesterol HDL Cholesterol POC Glucose 108 02/10/20 02/10/20 02/10/20 21:10 21:10 21:42 WBC RBC Hgb Hct MCV MCH MCHC RDW Std Deviation RDW Coeff of [place] Plt Count MPV Immature Gran % (Auto) Neut % (Auto) Lymph % (Auto) [place] % (Auto) Eos % (Auto) Baso % (Auto) Absolute Neuts (auto) Absolute Lymphs (auto) Nucleated RBC % Differential Comment Platelet Estimate RBC Morphology PT INR APTT Specimen Type Sample Site pH Bicarbonate Actual POC Total CO2 Base Excess O2 Saturation O2 % ABG pCO2 ABG pO2 Benny Test Respiration Rate O2 Delivery Device Liter Flow Minute Volume Vent Mode Tidal Volume POC PEEP EPAP Blood Gas Notified Whom Blood Gas Notified Time Sodium 140 Potassium 4.0 Chloride 110 H Carbon Dioxide 25.0 Anion Gap 5 BUN 19 H Creatinine 1.26 Estim Creat Clear Calc 60.35 Est GFR (MDRD) Af Amer 74 Est GFR (MDRD) Non-Af 61 BUN/Creatinine Ratio 15.1 Glucose 117 H Hemoglobin A1c 5.2 Lactic Acid 1.2 Calcium 10.5 H Total Bilirubin 0.70 AST 26 ALT 27 Alkaline Phosphatase 97 Total Creatine Kinase Troponin I 0.358 H Total Protein 7.9 Albumin 4.0 Globulin 3.9 Albumin/Globulin Ratio 1.0 Triglycerides Cholesterol LDL Cholesterol VLDL Cholesterol HDL Cholesterol POC Glucose 02/10/20 02/11/20 02/11/20 23:05 00:27 03:45 WBC 13.7 H RBC 4.93 Hgb 14.9 Hct 45.5 MCV 92.3 MCH 30.2 MCHC 32.7 RDW Std Deviation 43.0 RDW Coeff of [place] 12.5 Plt Count 212 MPV 10.0 Immature Gran % (Auto) 0.400 Neut % (Auto) 86.6 H Lymph % (Auto) 7.6 L [place] % (Auto) 5.3 Eos % (Auto) 0.0 Baso % (Auto) 0.1 Absolute Neuts (auto) 11.9 H Absolute Lymphs (auto) 1.04 Nucleated RBC % 0 Differential Comment Platelet Estimate RBC Morphology PT INR APTT Specimen Type ART Sample Site R RADIAL pH 7.24 L Bicarbonate Actual 21.2 L POC Total CO2 23 Base Excess -6 L O2 Saturation 92 L O2 % 70 ABG pCO2 49.5 H ABG pO2 76 Benny Test POS Respiration Rate 14 O2 Delivery Device Vent Liter Flow Pending Minute Volume 6.30 Vent Mode A-C Tidal Volume 450 POC PEEP 5 EPAP 5 Blood Gas Notified Whom ED Blood Gas Notified Time 2314 Sodium Potassium Chloride Carbon Dioxide Anion Gap BUN Creatinine Estim Creat Clear Calc Est GFR (MDRD) Af Amer Est GFR (MDRD) Non-Af BUN/Creatinine Ratio Glucose Hemoglobin A1c Lactic Acid Calcium Total Bilirubin AST ALT Alkaline Phosphatase Total Creatine Kinase Troponin I 0.603 H* Total Protein Albumin Globulin Albumin/Globulin Ratio Triglycerides Cholesterol LDL Cholesterol VLDL Cholesterol HDL Cholesterol POC Glucose 02/11/20 02/11/20 02/11/20 03:45 03:45 03:45 WBC RBC Hgb Hct MCV MCH MCHC RDW Std Deviation RDW Coeff of [place] Plt Count MPV Immature Gran % (Auto) Neut % (Auto) Lymph % (Auto) [place] % (Auto) Eos % (Auto) Baso % (Auto) Absolute Neuts (auto) Absolute Lymphs (auto) Nucleated RBC % Differential Comment Platelet Estimate RBC Morphology PT INR APTT Specimen Type Sample Site pH Bicarbonate Actual POC Total CO2 Base Excess O2 Saturation O2 % ABG pCO2 ABG pO2 Benny Test Respiration Rate O2 Delivery Device Liter Flow Minute Volume Vent Mode Tidal Volume POC PEEP EPAP Blood Gas Notified Whom Blood Gas Notified Time Sodium 140 Potassium 3.8 Chloride 109 H Carbon Dioxide 24.0 Anion Gap 7 BUN 17 Creatinine 1.11 Estim Creat Clear Calc 68.51 Est GFR (MDRD) Af Amer 85 Est GFR (MDRD) Non-Af 71 BUN/Creatinine Ratio 15.3 Glucose 126 H Hemoglobin A1c Lactic Acid Calcium 10.0 Total Bilirubin AST ALT Alkaline Phosphatase Total Creatine Kinase 756 H Troponin I 0.522 H Total Protein Albumin Globulin Albumin/Globulin Ratio Triglycerides 71 76 Cholesterol 137 LDL Cholesterol 81 VLDL Cholesterol 14 HDL Cholesterol 42 POC Glucose Microbiology 02/11/20 00:20 Gastric Fluid/Contents Gastric Occult Blood - Final Occult Blood Positive Clinical Impression(s) from Imaging Studies Brain CT 02/10/20 20:54 IMPRESSION: Chronic involutional changes of the brain. Encephalomalacia of the left temporal lobe stable in the interval. Old lacunar infarct of the deep right insular lobe. There is no evidence of intracranial hemorrhage or acute infarct. Findings are similar to the previous study. CTA head and/or MRI may be helpful for further evaluation at this time. N.B. : The above information has been verbally conveyed by Jaxon Francis MD to Dr. Eric MD, on 02/10/2020 21:39:55 (ET). Electronically Signed: Jaxon Francis MD at 21:30 EDT , Service support , Head/Neck CTA 02/10/20 21:08 IMPRESSION: CTA Head and neck with contrast is within normal limits for age. N.B. : The above information has been verbally conveyed by Jerrod Arias MD to Dr. Madhu Reyes MD, on 02/10/2020 21:54:41 (ET). Electronically Signed: Jerrod Arias MD at 21:51 EDT , Service support , Chest X-Ray 02/10/20 22:20 IMPRESSION: Limited inspiration. Hazy right upper lobe infiltrate and/or atelectasis. Nasogastric and endotracheal tubes noted appearing in adequate position. Multiple old left-sided rib fractures are noted. There are degenerative changes of the thoracic spine. Electronically Signed: Jaxon Francis MD at 22:52 EDT , Service support , Chest X-Ray 02/11/20 01:20 IMPRESSION: 1. Persistent right-sided airspace disease and atelectasis which appears smaller than it did on the previous study. 2. Appropriate positioning of endotracheal tube. Electronically Signed: Allie Moctezuma MD at 2:51 EDT , Service support , Current Medications Acetaminophen (Tylenol) 650 mg RECTAL Q4H PRN PRN PRN Reason: Pain Score 1-10/Temp > 100.7 F Albuterol Sulfate (Ventolin Aerosols) 2.5 mg INHALATION Q2H PRN PRN PRN Reason: SOB/Wheezing Chlorhexidine Gluconate () 15 ml PO BID [facility] Last Admin: 02/11/20 04:44 Dose: 15 ml Documented by: Dextrose (D50w Syringe) 0 gm IV X1 PRN; Protocol PRN Reason: Hypoglycemia Glucagon () 1 mg IM .X1 PRN PRN Reason: Hypoglycemia Hydralazine HCl (Apresoline Iv) 5 mg IV Q30M PRN PRN Reason: to maintain BP goals Sodium Chloride () 1,000 mls @ 75 mls/hr IV .[id number] [facility] Last Infusion: 02/11/20 05:21 Dose: 75 mls/hr Documented by: Pantoprazole Sodium 40 mg/ (Sodium Chloride) 110 mls @ 330 mls/hr IV Q12 [facility] Last Infusion: 02/11/20 00:55 Dose: Infused Documented by: Clindamycin Phosphate 600 mg/ (Dextrose) 54 mls @ 100 mls/hr IV Q6 [facility] Last Infusion: 02/11/20 05:20 Dose: Infused Documented by: Levetiracetam 500 mg/ Sodium (Chloride) 105 mls @ 400 mls/hr IV Q12 [facility] Sodium Chloride () 250 mls @ 15 mls/hr IV .[id number] PRN PRN Reason: Saline Flush Sodium Chloride () 250 mls @ 15 mls/hr IV .[id number] PRN PRN Reason: Additional IVPB Infusion Propofol (Diprivan) 1,000 mg in 100 mls @ 5.094 mls/hr CONT INF .Q12H [place]; Protocol Fentanyl () 100 mls @ 2.5 mls/hr IV UD [place]; Protocol Last Titration: 02/11/20 05:00 Dose: 25 mcg/hr, 2.5 mls/hr Documented by: Labetalol HCl (Trandate) 10 - 20 mg IV Q10M PRN PRN PRN Reason: to maintain BP goals Ondansetron HCl (Zofran) 4 mg IV Q8H PRN PRN PRN Reason: NAUSEA/VOMITING Sodium Chloride () 10 - 40 ml IV UD PRN PRN Reason: SALINE FLUSH Last Admin: 02/11/20 04:44 Dose: 10 ml Documented by: Assessment/Plan Active and Suspected Problems Status epilepticus (Acute) Acute respiratory failure with hypoxia (Acute) Aspiration pneumonitis (Acute) CVA (cerebral vascular accident) (Acute) RECOMMENDATIONS: 1. Continue current supportive measures with invasive mechanical ventilatory support. Wean FiO2 and PEEP to maintain oxygen saturations at or above 90%. 2. Transition from clindamycin to meropenem, given penicillin allergy. Await culture results. 3. Obtain EEG and MRI. Recommend neurology consultation once imaging is completed. 4. Toxicology screen. 5. Obtain echocardiogram. 6. Continue appropriate ICU prophylaxis. IMPRESSIONS: 1. Acute encephalopathy Unclear etiology at this time. The patient is currently being worked up for underlying seizure disorder with EEG. Plan to obtain MRI today as well. Unclear if the patient has any history of polysubstance use. Unfortunately, toxicology screen was never obtained in the emergency department. Plan to minimize sedation as possible. The patient will likely require neurology consultation, depending on the results of his neurological work-up. The patient does not currently have any evidence of acute CVA on preliminary head imaging. 2. Acute respiratory failure The patient was intubated in the emergency department over concerns for airway protection. Ventilator requirements are quite minimal at this time. Plan to continue the patient on invasive mechanical ventilatory support, while neurological work-up is being undertaken. Continue to wean FiO2 as tolerated. 3. Severe sepsis with concern for aspiration pneumonia Given that the patient was found in an unresponsive state and did have some upper lobe changes noted on x-ray, antimicrobials will be continued over concerns for possible aspiration pneumonia. Clindamycin has been transitioned to meropenem, given that the patient has a reported penicillin allergy. Cultures are currently pending. 4. Troponin elevation Likely secondary to demand ischemia in the setting of the above. Echocardiogram is currently pending for further evaluation. TIME: 38 minutes of critical care time, independent of procedures, was spent addressing the patient's acute encephalopathy, severe sepsis with concerns for aspiration pneumonia, troponin elevation, review of all data and collaboration with the care team. [id number]) [id number] Critical care first hour
--- NOTE | 2020-02-11 06:16 | NURSING ---
Pt moving ALL limbs, does not follow any commands even when making eye contact and tracking. Pt very strong on left and attempts to manipulate his body in order to place his face nearer to his left hand in order to grab ETT. Pt has minor weakness now to RUE, RLE not as active when compared to LLE. Staff attempted to explain situation to pt and pt did not acknowledge information. Pt informed that he would be getting out of bed this morning, pt immediately turned head, made domínguez eye contact and nodded his head yes. Pt appears to be selectively interacting to staff commands/ instructions.
--- NOTE | 2020-02-11 08:00 | NURSING ---
NIHSS very difficult to assess. Pt is agitated and not following directions. Is moving all extremities at this time.
[2020-02-11] MEDS: Propofol 10MG/Ml 1,000 MG/100 ML Bottle 5.1 MG CONT INF ×2 (08:30→20:42)
[2020-02-11 09:23] LABS: Amphetamine Urine VISTA NEGATIVE (<1000 ng/mL); Barbiturate Urine VISTA NEGATIVE (< 200 ng/mL); Benzodiazepine Urine VISTA NEGATIVE (< 200 ng/mL); Cocaine Urine VISTA NEGATIVE (< 300 ng/mL); Ecstacy Urine VISTA NEGATIVE (< 500 ng/mL); Methadone Urine VISTA NEGATIVE (< 300 ng/mL); PCP Urine VISTA NEGATIVE (< 25 ng/mL); THC Urine VISTA NEGATIVE (< 50 ng/mL); Vista UDS pH Range 5
--- NOTE | 2020-02-11 09:47 | PCM.NTREPORT ---
Nutrition Therapy Report - History Nutrition Services has been consulted to:: Manage enteral nutrition Current diet / nutrition support order:: NPO - Anthropometric Measurements Height:: 5 ft 10 in Weight:: 84.9 kg Body Mass Index (BMI):: 26.8 - Relevant Labs Relevant Labs:: WBC 13.7 K/mm3 (4.4-11.0) H 02/11/20 03:45 Neut % (Auto) 86.6 % (47-70) H 02/11/20 03:45 Lymph % (Auto) 7.6 % (19-41) L 02/11/20 03:45 Absolute Neuts (auto) 11.9 X10^3/uL (2.0-7.7) H 02/11/20 03:45 APTT 23.6 Seconds (24.1-36.2) L 02/10/20 21:10 Chloride 109 mmol/L (98-107) H 02/11/20 03:45 BUN 19 mg/dL (7-18) H 02/10/20 21:10 Glucose 126 mg/dL (74-106) H 02/11/20 03:45 Calcium 10.5 mg/dL (8.5-10.1) H 02/10/20 21:10 Total Creatine Kinase 756 U/L (39-308) H 02/11/20 03:45 Troponin I 0.522 ng/mL (<0.045) H 02/11/20 03:45 - Assessment Food / Nutrition-Related History:: Discussed in ICU rounds. Pt currently intubated, sedated, w/ OG in place. Unable to answer nutrition screening questions upon admission. Wt hx in EMR reviewed. Wt on 08/12/19 was 181.0# and CBW 187.2# suggesting no significant wt loss over past 6 months. Per rounds, okay to start enteral nutrition support today. - Nutrition Diagnosis Problem / Etiology / Signs & Symptoms (PES):: Inadequate oral intake r/t respiratory status/intubation as evidenced by no PO intake since admission Evidence of Malnutrition Exists:: No - Nutrition Intervention Nutrition Prescription:: [id number] calories/day, 106-127 g protein/day (1.25-1.5 g/kg) - Food / Nutrient Delivery Interventions Summary of nutrition intervention:: Will order enteral nutrition Nutrition support ordered as / adjusted to:: Vital AF 1.2 via OG at goal rate of 70mL/hour w/ 125mL H2O flush every 4 hours to provide 2016 calories, 126 g protein, and 2112 mL total fluid/day. Would start tube feeds at 25mL/hour and increase by 15mL every 8 hours as pt tolerates until goal rate achieved. Nutrition education provided?: No - MNT Monitoring Further MNT monitoring and evaluation required?: Yes MNT Follow-up in:: 1-2 days
--- NOTE | 2020-02-11 10:00 | NURSING ---
NIHSS very difficult to assess. Pt not following directions.
--- NOTE | 2020-02-11 10:05 | PN_ITS ---
Patient Problems: Active and Suspected Problems Status epilepticus (Acute) Acute respiratory failure with hypoxia (Acute) Aspiration pneumonitis (Acute) CVA (cerebral vascular accident) (Acute) Subjective: Patient seen and examined. He was admitted from home on 02/10/2020 on account of being found unresponsive by his . Per admitting H&P, stated that patient had: Out of the house to be [place] and came home at around 1547. When his arrived home in the evening, she found him unresponsive in a chair and drooling. He was admitted in the ED where on admission, Nik Coma Scale was 3 so he was emergently intubated. Admitting diagnosis was for acute stroke. NIH stroke scale was documented as 13. ED also considered patient might be in status epilepticus. CT of the brain done showed no evidence of stroke and showed old encephalomalacia and CTA of the head and neck was negative for any large vessel obstruction. Patient was considered out of window for TPA and so he was not given any TPA. He received Ativan initially for status epilepticus and he was subsequently started on Keppra. Patient seen and examined this morning. He is intubated. However he is noted to be moving all extremities and trying aggressively to get out of bed. He had an EEG done this morning, reading of which is pending. He was started on propofol for sedation as patient's RASS score was +3. Observe vitals reviewed. He has remained hemodynamically stable. Troponin was initially 0.358 and trended up to a peak of 0.522. WBC is down to 13.7. Vitals/I&O's: Vital Signs Temp Pulse Resp BP Pulse Ox 98.5 F 75 14 137/82 H 97 02/11/20 07:00 02/11/20 09:13 02/11/20 09:13 02/11/20 07:00 02/11/20 09:13 Oxygen Flow Rate (L/min) 15 Oxygen Delivery Method Mechanical Ventilator Weight: 187 lb 2.759 oz Body Mass Index (BMI) 26.8 Finger Stick Blood Glucose 108 Intake and Output for Last 24 Hours 02/09/20 02/10/20 02/11/20 23:59 23:59 23:59 Intake Total 154 / 154 827.42 / 827.42 Output Total 775 / 775 Balance 154 / 154 52.42 / 52.42 General: Alert, - - agitated, intubated HEENT: Atraumatic, PERRLA, EOMI Oral: Dry Mucosa Neck: Supple, No JVD, Negative Carotid Bruits Lungs: Clear to auscultation, Normal air movement, No rhonchi, No wheeze, No rales Cardiovascular: Regular rate, Regular Rhythm, Normal S1, Normal S2, No murmurs Abdomen: Bowel Sounds Present, Soft, Non Tender, Non-Distended, No Hepato- splenomegaly Extremities: No clubbing, No cyanosis, No edema, Capillary Refill Less than 3 Seconds Skin: No rashes, No breakdown Musculoskeletal: No Tenderness to Palpation of Joints or Extremities Lymphatic: No Cervical, Supraclavicular, or Inguinal Adenopathy Neurological: Cranial nerves II-XII grossly intact - has horizontal nystagmus, moving all limbs spontaneously, no obvious muscle droop Psych/Mental Status: - - agitated, RASS score is 4 Microbiology Past 72 Hours 02/11/20 00:20 Gastric Fluid/Contents Gastric Occult Blood - Final Occult Blood Positive Laboratory Results 02/10/20 21:02: POC Glucose 108 02/10/20 21:10: WBC 18.5 H, RBC 5.05, Hgb 15.7, Hct 46.9, MCV 92.9, MCH 31.1, MCHC 33.5, RDW Std Deviation 42.6, RDW Coeff of Chelo 12.5, Plt Count 217, MPV 10.3, Immature Gran % (Auto) 0.400, Neut % (Auto) 85.3 H, Lymph % (Auto) 6.7 L, Clinch % (Auto) 7.2, Eos % (Auto) 0.2, Baso % (Auto) 0.2, Absolute Neuts (auto) 15.8 H, Absolute Lymphs (auto) 1.24, Nucleated RBC % 0, Differential Comment SCANNED, Platelet Estimate ADEQUATE, RBC Morphology NORM C+C 02/10/20 21:10: PT 13.8, INR 1.1, APTT 23.6 L 02/10/20 21:10: Sodium 140, Potassium 4.0, Chloride 110 H, Carbon Dioxide 25.0, Anion Gap 5, BUN 19 H, Creatinine 1.26, Estim Creat Clear Calc 60.35, Est GFR (MDRD) Af Amer 74, Est GFR (MDRD) Non-Af 61, BUN/Creatinine Ratio 15.1, Glucose 117 H, Calcium 10.5 H, Total Bilirubin 0.70, AST 26, ALT 27, Alkaline Phosphatase 97, Troponin I 0.358 H, Total Protein 7.9, Albumin 4.0, Globulin 3.9, Albumin/Globulin Ratio 1.0 02/10/20 21:10: Hemoglobin A1c 5.2 02/10/20 21:42: Lactic Acid 1.2 02/10/20 21:45: Urine Opiates Screen NEGATIVE, Urine Methadone Screen NEGATIVE, Ur Barbiturates Screen NEGATIVE, Ur Phencyclidine Scrn NEGATIVE, Ur Amphetamines Screen NEGATIVE, U Methamphetamin-MDMA NEGATIVE, U Benzodiazepines Scrn NE GATIVE, Urine Cocaine Screen NEGATIVE, U Cannabinoids Screen NEGATIVE, Ur Drug Screen Comment 02/10/20 23:05: Specimen Type ART, Sample Site R RADIAL, pH 7.24 L, Bicarbonate Actual 21.2 L, POC Total CO2 23, Base Excess -6 L, O2 Saturation 92 L, O2 % 70, ABG pCO2 49.5 H, ABG pO2 76, Benny Test POS, Respiration Rate 14, O2 Delivery Device Vent, Liter Flow Pending, Minute Volume 6.30, Vent Mode A-C, Tidal Volume 450, POC PEEP 5, EPAP 5, Blood Gas Notified Whom ED , Blood Gas Notified Time 2319 02/11/20 00:27: Troponin I 0.603 H* 02/11/20 03:45: WBC 13.7 H, RBC 4.93, Hgb 14.9, Hct 45.5, MCV 92.3, MCH 30.2, MCHC 32.7, RDW Std Deviation 43.0, RDW Coeff of Chelo 12.5, Plt Count 212, MPV 10.0, Immature Gran % (Auto) 0.400, Neut % (Auto) 86.6 H, Lymph % (Auto) 7.6 L, Clinch % (Auto) 5.3, Eos % (Auto) 0.0, Baso % (Auto) 0.1, Absolute Neuts (auto) 11.9 H, Absolute Lymphs (auto) 1.04, Nucleated RBC % 0 02/11/20 03:45: Sodium 140, Potassium 3.8, Chloride 109 H, Carbon Dioxide 24.0, Anion Gap 7, BUN 17, Creatinine 1.11, Estim Creat Clear Calc 68.51, Est GFR (MDRD) Af Amer 85, Est GFR (MDRD) Non-Af 71, BUN/Creatinine Ratio 15.3, Glucose 126 H, Calcium 10.0, Triglycerides 71, Cholesterol 137, LDL Cholesterol 81, VLDL Cholesterol 14, HDL Cholesterol 42 02/11/20 03:45: Troponin I 0.522 H 02/11/20 03:45: Total Creatine Kinase 756 H, Triglycerides 76 02/11/20 08:40: MRSA (PCR) Pending Diagnostic Data Brain CT 02/10/20 20:54 IMPRESSION: Chronic involutional changes of the brain. Encephalomalacia of the left temporal lobe stable in the interval. Old lacunar infarct of the deep right insular lobe. There is no evidence of intracranial hemorrhage or acute infarct. Findings are similar to the previous study. CTA head and/or MRI may be helpful for further evaluation at this time. N.B. : The above information has been verbally conveyed by Jaxon Francis MD to Dr. Eric MD, on 02/10/2020 21:39:55 (ET). Electronically Signed: Jaxon Francis MD at 21:30 EDT , Service support , Head/Neck CTA 02/10/20 21:08 IMPRESSION: CTA Head and neck with contrast is within normal limits for age. N.B. : The above information has been verbally conveyed by Jerrod Arias MD to Dr. Madhu Reyes MD, on 02/10/2020 21:54:41 (ET). Electronically Signed: Jerrod Arias MD at 21:51 EDT , Service support , Chest X-Ray 02/11/20 01:20 IMPRESSION: 1. Persistent right-sided airspace disease and atelectasis which appears smaller than it did on the previous study. 2. Appropriate positioning of endotracheal tube. Electronically Signed: Allie Moctezuma MD at 2:51 EDT , Service support , Current Medications Acetaminophen (Tylenol) 650 mg RECTAL Q4H PRN PRN PRN Reason: Pain Score 1-10/Temp > 100.7 F Albuterol Sulfate (Ventolin Aerosols) 2.5 mg INHALATION Q2H PRN PRN PRN Reason: SOB/Wheezing Chlorhexidine Gluconate () 15 ml PO BID [facility] Last Admin: 02/11/20 04:44 Dose: 15 ml Documented by: Dextrose (D50w Syringe) 0 gm IV X1 PRN; Protocol PRN Reason: Hypoglycemia Glucagon () 1 mg IM .X1 PRN PRN Reason: Hypoglycemia Hydralazine HCl (Apresoline Iv) 5 mg IV Q30M PRN PRN Reason: to maintain BP goals Sodium Chloride () 1,000 mls @ 75 mls/hr IV .[id number] [facility] Last Infusion: 02/11/20 09:48 Dose: 0 mls/hr Documented by: Pantoprazole Sodium 40 mg/ (Sodium Chloride) 110 mls @ 330 mls/hr IV Q12 LA Last Infusion: 02/11/20 00:55 Dose: Infused Documented by: Levetiracetam 500 mg/ Sodium (Chloride) 105 mls @ 400 mls/hr IV Q12 [facility] Last Admin: 02/11/20 09:47 Dose: 400 mls/hr Documented by: Sodium Chloride () 250 mls @ 15 mls/hr IV .[id number] PRN PRN Reason: Saline Flush Last Infusion: 02/11/20 08:55 Dose: 0 mls/hr Documented by: Sodium Chloride () 250 mls @ 15 mls/hr IV .[id number] PRN PRN Reason: Additional IVPB Infusion Propofol (Diprivan) 1,000 mg in 100 mls @ 5.094 mls/hr CONT INF .Q12H [facility]; Protocol Last Admin: 02/11/20 08:30 Dose: 10 mcg/kg/min, 5.1 mls/hr Documented by: Fentanyl () 100 mls @ 2.5 mls/hr IV UD [facility]; Protocol Last Titration: 02/11/20 06:40 Dose: 150 mcg/hr, 15 mls/hr Documented by: Meropenem 1 gm/ Sodium (Chloride) 120 mls @ 33 mls/hr IV Q8 LA Last Admin: 02/11/20 08:53 Dose: 33 mls/hr Documented by: Enteral Nutritional Formula (Vital Af 1.2 Nick Liquid) 1,000 mls @ 70 mls/hr GT .[id number] LA Labetalol HCl (Trandate) 10 - 20 mg IV Q10M PRN PRN PRN Reason: to maintain BP goals Ondansetron HCl (Zofran) 4 mg IV Q8H PRN PRN PRN Reason: NAUSEA/VOMITING Sodium Chloride () 10 - 40 ml IV UD PRN PRN Reason: SALINE FLUSH Last Admin: 02/11/20 04:44 Dose: 10 ml Documented by: STROKE Vital Signs/Narrative: Vital Signs Temp Pulse Resp BP Pulse Ox 02/11/20 09:13 75 14 97 02/11/20 07:22 75 18 97 02/11/20 07:00 98.5 F 79 16 137/82 H 97 Medical Necessity - Tobacco Use Smoking Status: Never smoker Assessment/Plan All Active Problems TIA (transient ischemic attack) (Acute) Status epilepticus (Acute) Acute respiratory failure with hypoxia (Acute) Aspiration pneumonitis (Acute) CVA (cerebral vascular accident) (Acute) 1. Acute metabolic encephalopathy * differentials include status epilepticus * I do think it is less likely acute stroke as patient is moving all limbs spontaneously, with no focal deficits. He does have nystagmus, unable to assess for sensation due to him being intubated adn also agitated. * Currently on IV keppra * CT of hte head was negative for any stroke; CTA head and neck was within normal limits for age * 2D echo pending * urine tox was negative. * will await MRI report * was started on PO aspirin, but thiw was subsequently stopped as gastric occult blood was positive. * will consult neurology * critical care on board * 2. Aspiration pneumonia * CXR today shows persistent right sided airspace disease and atelectasis which appears smaller than it did on previous study * wbc is down to 13.7, from 18.5 on admission * was started on IV clindamycin, this was broadened to IV meropenem today * 3,. Elevated troponins * Initial troponin was 0.358 and trended up to 0.6?3 and came down slightly to 0.522. * EKG showed no acute ST changes. Was started on aspirin but this was stopped on account of positive gastric occult blood * 2D echo pending * consider cardiology consult. * 4. ?UGI bleed * gastric occult blood was positive. * Hgb is 14.9 * on pantoprazole for stress prophylaxis * if Hgb drops, will consider surgery consult * DVT prophylaxis; SCDs. no anticoagulation o/a of positive gastric occult blood GI prophylaxis; IV pantoprazole Code status: DNRCCA with intubation 4:48pm EEG results came back showing recurrent sharply contoured high amplitude slowing seen arising from the left frontoparietal region consistent with a variety of periodic lateralizing epileptiform discharges. Decision made to transfer patient to tertiary care center on account of suspected status epilepticus. Patient accepted at [facility] neuro ICU under the care of Dr. Lidya Horner. Inpatient E&M: [id number] [facility] L[facility]
[2020-02-11 10:23] LABS: M R Staph aureus DNA By PCR Negative (Negative); Probe Check PASS; Specimen Processing Control PASS
[2020-02-11] MEDS: fentaNYL drip 100 ML 20 MCG IV ×3 (10:45→20:43)
--- NOTE | 2020-02-11 10:45 | NURSING ---
Spoke w/pt's significant other on the phone, updated on pt's status.
--- NOTE | 2020-02-11 12:10 | NURSING ---
NIHSS very difficult to assess. Pt not following directions.
--- NOTE | 2020-02-11 13:19 | NURSING ---
Spoke w/pt's significant other. Updated on pt's status.
--- NOTE | 2020-02-11 14:00 | NURSING ---
Difficult to assess NIHSS. Moving all extremities. Does not follow command to squeeze nurse's hand.
[2020-02-11] MEDS: Vital AF 1.2 Cal Liquid 1,000 ML 70 ML GT (16:01)
--- NOTE | 2020-02-11 16:27 | NURSING ---
Difficult to assess NIHSS. Moving all extremities. Does not follow command to squeeze nurse's hand. Opens eyes and appears to track nurse.
--- NOTE | 2020-02-11 16:49 | DS.PCM_ITS ---
Discharge Date and Diagnosis - Problem List Patient Problems: Active and Suspected Problems Status epilepticus (Acute) Acute respiratory failure with hypoxia (Acute) Aspiration pneumonitis (Acute) CVA (cerebral vascular accident) (Acute) Date of Admission: 02/10/20 Date of Discharge: 02/11/20 - Primary Discharge Diagnosis Acute Problems: Active Problems Status epilepticus (Acute) Acute respiratory failure with hypoxia (Acute) Aspiration pneumonitis (Acute) status epilepticus - Secondary Discharge Diagnosis Chronic Problems: Chronic Problems Hypertension (Chronic) History of CVA (cerebrovascular accident) (Chronic) History of intracranial hemorrhage (Chronic) Anxiety and depression (Chronic) Hypercalcemia (Chronic) Parathyroid adenoma (Chronic) Hospital Course and Treatment Imaging Results: Diagnostic Data Brain CT 02/10/20 20:54 IMPRESSION: Chronic involutional changes of the brain. Encephalomalacia of the left temporal lobe stable in the interval. Old lacunar infarct of the deep right insular lobe. There is no evidence of intracranial hemorrhage or acute infarct. Findings are similar to the previous study. CTA head and/or MRI may be helpful for further evaluation at this time. N.B. : The above information has been verbally conveyed by Jaxon Francis MD to Dr. Eric MD, on 02/10/2020 21:39:55 (ET). Electronically Signed: Jaxon Francis MD at 21:30 EDT , Service support , Head/Neck CTA 02/10/20 21:08 IMPRESSION: CTA Head and neck with contrast is within normal limits for age. N.B. : The above information has been verbally conveyed by Jerrod Arias MD to Dr. Madhu Reyes MD, on 02/10/2020 21:54:41 (ET). Electronically Signed: Jerrod Arias MD at 21:51 EDT , Service support , Chest X-Ray 02/11/20 01:20 IMPRESSION: 1. Persistent right-sided airspace disease and atelectasis which appears smaller than it did on the previous study. 2. Appropriate positioning of endotracheal tube. Electronically Signed: Allie Moctezuma MD at 2:51 EDT , Service support , critical care- Dr Kyler Vázquez Operations: None Procedures: Electroencephalogram Summary of Care Provided: The patient is a 64 year old M with a past medical history as outlined who was admitted from home on 02/10/2020 on account of being found unresponsive by his . Per admitting H&P, stated that patient had: Out of the house to be [place] and came home at around 1547. When his arrived home in the evening, she found him unresponsive in a chair and drooling. He was admitted in the ED where on admission, Nik Coma Scale was 3 so he was emergently intubated. Admitting diagnosis was for acute stroke. NIH stroke scale was documented as 13. ED also considered patient might be in status epilepticus. CT of the brain done showed no evidence of stroke and showed old encephalomalacia and CTA of the head and neck was negative for any large vessel obstruction. Patient was considered out of window for TPA and so he was not given any TPA. He received Ativan initially for suspected status epilepticus and he was subsequently started on Keppra. Per admitting note and ED physician note, case was discussed with rubber chemist that patient was being admitted to get EEG. Patient had EEG on the morning of 02/11/2020. [Patient was admitted as a case of suspected acute stroke. However with subsequent review, it did not seem that patient had an acute stroke. He appeared to have had more of an acute metabolic encephalopathy, the differential of which was status epilepticus. Patient was subsequently moving all extremities and trying to get out of bed whilst intubated and his RA SS score was +3- +4. He was therefore started on propofol infusion to sedate him. Note, imaging of the chest done also showed evidence of possible aspiration pneumonia so patient was initially started on IV clindamycin but this was broadened to IV meropenem because in the ICU. Neurology was to be consulted pending EEG results. EEG results showed recurrent sharply contoured high amplitude slowing seen arising from the left frontoparietal region consistent with a slow variant of periodic lateralizing epileptiform discharges which was a generally nonspecific finding seen in a variety of conditions but could also be seen with focal nonconvulsive seizures. Decision was made to emergently transfer patient to a tertiary center for continuous EEG monitoring. Patient was transferred to [facility] neuro ICU under the care of Dr. Ethel Horner. Patient was seen and examined prior to discharge. He was sedated with propofol as he had been very agitated. Unable to do review of systems as patient was intubated. o/e: Vital Signs Temp Pulse Resp BP Pulse Ox 99.0 F 71 14 127/80 H 99 02/11/20 16:00 02/11/20 16:47 02/11/20 16:47 02/11/20 16:00 02/11/20 16:47 General: Alert, agitated, intubated HEENT: Atraumatic, PERRLA, EOMI Oral: Dry Mucosa Neck: Supple, No JVD, Negative Carotid Bruits Lungs: Clear to auscultation, Normal air movement, No rhonchi, No wheeze, No rales Cardiovascular: Regular rate, Regular Rhythm, Normal S1, Normal S2, No murmurs Abdomen: Bowel Sounds Present, Soft, Non Tender, Non-Distended, No Hepato- splenomegaly Extremities: No clubbing, No cyanosis, No edema, Capillary Refill Less than 3 Seconds Skin: No rashes, No breakdown Musculoskeletal: No Tenderness to Palpation of Joints or Extremities Lymphatic: No Cervical, Supraclavicular, or Inguinal Adenopathy Neurological: Cranial nerves II-XII grossly intact - has horizontal nystagmus, moving all limbs spontaneously, no obvious muscle droop Psych/Mental Status: - - agitated, RASS score is +3 to +4; started on Propofol Plan is for emergent transfer to [facility] neuro ICU to the service of Dr Ethel Horner Patient Problems: Active and Suspected Problems Status epilepticus (Acute) Acute respiratory failure with hypoxia (Acute) Aspiration pneumonitis (Acute) CVA (cerebral vascular accident) (Acute) - Physical Exam Vitals/I&O's: Vital Signs Temp Pulse Resp BP Pulse Ox 99.0 F 71 14 127/80 H 99 02/11/20 16:00 02/11/20 16:47 02/11/20 16:47 02/11/20 16:00 02/11/20 16:47 Oxygen Flow Rate (L/min) 15 Oxygen Delivery Method Mechanical Ventilator Weight: 187 lb 2.759 oz Body Mass Index (BMI) 26.8 Finger Stick Blood Glucose 108 Intake and Output for Last 24 Hours 02/09/20 02/10/20 02/11/20 23:59 23:59 23:59 Intake Total 154 / 154 1560.36 / 1560.36 Output Total 1100 / 1100 Balance 154 / 154 460.36 / 460.36 Microbiology Past 72 Hours 02/11/20 00:35 Sputum, Tracheal Aspirate Gram Stain - Final 02/11/20 00:20 Gastric Fluid/Contents Gastric Occult Blood - Final Occult Blood Positive Laboratory Results 02/10/20 21:02: POC Glucose 108 02/10/20 21:10: WBC 18.5 H, RBC 5.05, Hgb 15.7, Hct 46.9, MCV 92.9, MCH 31.1, MCHC 33.5, RDW Std Deviation 42.6, RDW Coeff of Chelo 12.5, Plt Count 217, MPV 10.3, Immature Gran % (Auto) 0.400, Neut % (Auto) 85.3 H, Lymph % (Auto) 6.7 L, Sanders % (Auto) 7.2, Eos % (Auto) 0.2, Baso % (Auto) 0.2, Absolute Neuts (auto) 15.8 H, Absolute Lymphs (auto) 1.24, Nucleated RBC % 0, Differential Comment SCANNED, Platelet Estimate ADEQUATE, RBC Morphology NORM C+C 02/10/20 21:10: PT 13.8, INR 1.1, APTT 23.6 L 02/10/20 21:10: Sodium 140, Potassium 4.0, Chloride 110 H, Carbon Dioxide 25.0, Anion Gap 5, BUN 19 H, Creatinine 1.26, Estim Creat Clear Calc 60.35, Est GFR (MDRD) Af Amer 74, Est GFR (MDRD) Non-Af 61, BUN/Creatinine Ratio 15.1, Glucose 117 H, Calcium 10.5 H, Total Bilirubin 0.70, AST 26, ALT 27, Alkaline Phosphatase 97, Troponin I 0.358 H, Total Protein 7.9, Albumin 4.0, Globulin 3.9, Albumin/Globulin Ratio 1.0 02/10/20 21:10: Hemoglobin A1c 5.2 02/10/20 21:42: Lactic Acid 1.2 02/10/20 21:45: Urine Opiates Screen NEGATIVE, Urine Methadone Screen NEGATIVE, Ur Barbiturates Screen NEGATIVE, Ur Phencyclidine Scrn NEGATIVE, Ur Amphetamines Screen NEGATIVE, U Methamphetamin-MDMA NEGATIVE, U Benzodiazepines Scrn NEGATIVE, Urine Cocaine Screen NEGATIVE, U Cannabinoids Screen NEGATIVE, Ur Drug Screen Comment 02/10/20 23:05: Specimen Type ART, Sample Site R RADIAL, pH 7.24 L, Bicarbonate Actual 21.2 L, POC Total CO2 23, Base Excess -6 L, O2 Saturation 92 L, O2 % 70, ABG pCO2 49.5 H, ABG pO2 76, Benny Test POS, Respiration Rate 14, O2 Delivery Device Vent, Liter Flow Pending, Minute Volume 6.30, Vent Mode A-C, Tidal Volume 450, POC PEEP 5, EPAP 5, Blood Gas Notified Whom ED MD, Blood Gas Notified Time 4255 02/11/20 00:27: Troponin I 0.603 H* 02/11/20 03:45: WBC 13.7 H, RBC 4.93, Hgb 14.9, Hct 45.5, MCV 92.3, MCH 30.2, MCHC 32.7, RDW Std Deviation 43.0, RDW Coeff of Chelo 12.5, Plt Count 212, MPV 10 .0, Immature Gran % (Auto) 0.400, Neut % (Auto) 86.6 H, Lymph % (Auto) 7.6 L, Sanders % (Auto) 5.3, Eos % (Auto) 0.0, Baso % (Auto) 0.1, Absolute Neuts (auto) 11.9 H, Absolute Lymphs (auto) 1.04, Nucleated RBC % 0 02/11/20 03:45: Sodium 140, Potassium 3.8, Chloride 109 H, Carbon Dioxide 24.0, Anion Gap 7, BUN 17, Creatinine 1.11, Estim Creat Clear Calc 68.51, Est GFR (MDRD) Af Amer 85, Est GFR (MDRD) Non-Af 71, BUN/Creatinine Ratio 15.3, Glucose 126 H, Calcium 10.0, Triglycerides 71, Cholesterol 137, LDL Cholesterol 81, VLDL Cholesterol 14, HDL Cholesterol 42 02/11/20 03:45: Troponin I 0.522 H 02/11/20 03:45: Total Creatine Kinase 756 H, Triglycerides 76 02/11/20 08:40: MRSA (PCR) Negative Current Medications Acetaminophen (Tylenol) 650 mg RECTAL Q4H PRN PRN PRN Reason: Pain Score 1-10/Temp > 100.7 F Albuterol Sulfate (Ventolin Aerosols) 2.5 mg INHALATION Q2H PRN PRN PRN Reason: SOB/Wheezing Chlorhexidine Gluconate () 15 ml PO BID LA Last Admin: 02/11/20 12:03 Dose: 15 ml Documented by: Dextrose (D50w Syringe) 0 gm IV X1 PRN; Protocol PRN Reason: Hypoglycemia Glucagon () 1 mg IM .X1 PRN PRN Reason: Hypoglycemia Hydralazine HCl (Apresoline Iv) 5 mg IV Q30M PRN PRN Reason: to maintain BP goals Sodium Chloride () 1,000 mls @ 75 mls/hr IV .[id number] LA Last Admin: 02/11/20 16:28 Dose: Not Given Documented by: Pantoprazole Sodium 40 mg/ (Sodium Chloride) 110 mls @ 330 mls/hr IV Q12 LA Last Infusion: 02/11/20 12:22 Dose: Infused Documented by: Levetiracetam 500 mg/ Sodium (Chloride) 105 mls @ 400 mls/hr IV Q12 LA Last Infusion: 02/11/20 10:03 Dose: Infused Documented by: Sodium Chloride () 250 mls @ 15 mls/hr IV .[id number] PRN PRN Reason: Saline Flush Last Infusion: 02/11/20 14:14 Dose: 0 mls/hr Documented by: Sodium Chloride () 250 mls @ 15 mls/hr IV .[id number] PRN PRN Reason: Additional IVPB Infusion Propofol (Diprivan) 1,000 mg in 100 mls @ 5.094 mls/hr CONT INF .Q12H LA; Protocol Last Titration: 02/11/20 16:00 Dose: 10 mcg/kg/min, 5.1 mls/hr Documented by: Fentanyl () 100 mls @ 2.5 mls/hr IV UD LA; Protocol Last Admin: 02/11/20 15:59 Dose: 200 mcg/hr, 20 mls/hr Documented by: Meropenem 1 gm/ Sodium (Chloride) 120 mls @ 33 mls/hr IV Q8 LA Last Admin: 02/11/20 14:13 Dose: 33 mls/hr Documented by: Enteral Nutritional Formula (Vital Af 1.2 Nick Liquid) 1,000 mls @ 70 mls/hr GT .[id number] LA Last Admin: 02/11/20 16:01 Dose: 70 mls/hr Documented by: Labetalol HCl (Trandate) 10 - 20 mg IV Q10M PRN PRN PRN Reason: to maintain BP goals Ondansetron HCl (Zofran) 4 mg IV Q8H PRN PRN PRN Reason: NAUSEA/VOMITING Sodium Chloride () 10 - 40 ml IV UD PRN PRN Reason: SALINE FLUSH Last Admin: 02/11/20 12:03 Dose: 10 ml Documented by: Home Medications: Medications to take at Discharge Risperidone 1 mg PO QHS 08/12/19 Aspirin 325 mg PO DAILY 02/10/20 Thiamine HCl 100 mg PO DAILY 02/10/20 Thiamine HCl [Vitamin B-1] 50 mg PO QHS 02/10/20 Vitamin A 02/10/20 Vitamin C 02/10/20 Vitamin E 02/10/20 Primary Care Physician: [facility] [Primary Care Provider] - Disposition: Acute care Hospital Minutes spent on discharge:: 50 Patient Condition:: Critical Medical Necessity - Tobacco Use Smoking Status: Never smoker Meaningful Use Info Meaningful Use Diagnoses (Choose all that apply): None applicable Inpatient E&M: 51080 [facility] H[facility]
--- NOTE | 2020-02-11 17:08 | NURSING ---
Dr Moore arranged transport for pt following EEG results. [facility] Pt needs neurology consultation- decision to transfer to [facility] as pt was at this hospital for his TBI in 2017. Pt's significant other aware of transfer.
--- NOTE | 2020-02-11 18:00 | NURSING ---
Difficult to assess NIHSS. Moving all extremities. Does not follow command to squeeze nurse's hand. Opens eyes and appears to track nurse.
--- NOTE | 2020-02-11 20:11 | NURSING ---
NIHSS difficult to complete d/t pt not following commands, becoming restless and agitated w/stimulation; pt noted to be moving all limbs, only slight weakness to right side.
--- NOTE | 2020-02-11 20:40 | NURSING ---
Pt transferred into [facility] transport stretcher and placed on their portable vent, IV medications transferred over to their equipment, transport provided w/ a new 100ml propofol and 100ml of Fentanyl. Pt's Jose WILLS, and [facility] receiving RN notified of transport.
== END 2020-02-11 20:40 | disposition short-term general hospital (02) | DRG 100 ==
LOC: ED 22:30 → ICU 22:36
PROVIDERS: Emergency Medicine; Internal Medicine Critical Care Medicine; Admitting Provider Hospitalist; Emergency Provider Emergency Medicine; Visit Provider Student in an Organized Health Care Education/Training Program
DX: G40.901 Epilepsy, unspecified, not intractable, with status epilepticus (principal); J96.01 Acute respiratory failure with hypoxia; J69.0 Pneumonitis due to inhalation of food and vomit; G93.41 Metabolic encephalopathy; I45.10 Unspecified right bundle-branch block; I10 Essential (primary) hypertension; F32.9 Major depressive disorder, single episode, unspecified; F41.9 Anxiety disorder, unspecified; D35.1 Benign neoplasm of parathyroid gland; E83.52 Hypercalcemia; R19.5 Other fecal abnormalities; R79.89 Other specified abnormal findings of blood chemistry; Z66 Do not resuscitate; Z88.0 Allergy status to penicillin; Z86.73 Personal history of transient ischemic attack (TIA), and cerebral infarction without residual deficits
CPT/HCPCS: 31500; 31720; 36600; 51702; 70450; 70496; 70498; 71045; 80048; 80053; 80061; 80307; 82271; 82550; 82803; 82962; 83036; 83605; 84478; 84484; 85025; 85610; 85730; 87040; 87070; 87205; 87641; 93005; 94002; 94003; 95819; 97802; 99251; 99285; J2185; J7030; J7050; Q9967; A4216; G0463

== ENCOUNTER 2020-04-04 15:38 | Outpatient (RCR) | payer MEDICARE, OTHER, SELFPAY ==
[2019-08-13 08:05] VITALS: BMI 25.9
[2020-02-11 14:11] VITALS: BMI 26.8
== END 2020-04-04 19:00 | disposition home or self-care (01) ==
LOC: SP 15:38
DX: G93.40 Encephalopathy, unspecified (principal)
CPT/HCPCS: 92523

== ENCOUNTER 2020-06-23 18:26 | Emergency (ER) | payer OTHER, MEDICARE, SELFPAY ==
[2020-02-11 14:11] VITALS: BMI 26.8
[2020-06-23] VITALS (7 sets, daily range): BP systolic 121–141; BP diastolic 66–81; PULSE 86–181; RESP 15–19; TEMP 36.6–37.6; O2SAT 94–99; BMI 27.1; BMI 28.4
[2020-06-23] MEDS: LORazepam 2 MG/ML Syringe IV (18:29)
[2020-06-23] MEDS: Rocuronium Bromide 50 MG/5 ML Vial 100 MG IV (18:32)
--- NOTE | 2020-06-23 18:36 | RAD_ITS ---
STUDY: X-RAY CHEST REASON FOR EXAM: Male, 65 years old. Intubation TECHNIQUE: Frontal view of the chest COMPARISON: 02/11/20 FINDINGS: There is an endotracheal tube noted with its tip approximately 4 cm above the miryam. There is an enteric tube noted with its tip in the stomach. There is no pneumothorax. There are no focal infiltrates. There are no pleural effusions. The heart is normal in size. There are stable old left-sided rib fractures. RAD/Chest 1 View (Portable) IMPRESSION: Satisfactory position of the support lines and tubes. Electronically Signed: John Morocho, at 19:29 EDT Tel , Service support ,
--- NOTE | 2020-06-23 18:36 | CT_ITS ---
STUDY: CT BRAIN WITHOUT CONTRAST REASON FOR EXAM: Male, 65 years old. Seizure RADIATION DOSAGE (If Supplied By Facility): CTDIvol = ( 44.99 ) mGy, DLP = ( 846.73 ) mGycm TECHNIQUE: Transaxial CT imaging of the brain was performed without administration of intravenous contrast material. Individualized dose optimization techniques were used for this CT. COMPARISON: 02/10/20 FINDINGS: There is a stable old left temporal infarct with encephalomalacia. There is no acute bleed or infarct. There are stable chronic ischemic and atrophic changes. The ventricles are normal in configuration. There is no hydrocephalus. The visualized paranasal sinuses are clear. The mastoid air cells are well aerated. There is no skull fracture. CT/Brain/Head without Contrast IMPRESSION: Stable old left temporal infarct with encephalomalacia. Stable chronic ischemic and atrophic changes. No acute intracranial abnormality. Electronically Signed: John Morocho, at 19:24 EDT Tel , Service support ,
--- NOTE | 2020-06-23 18:39 | EKG12_ITS ---
Test Reason : Blood Pressure : / mmHG Vent. Rate : 165 BPM Atrial Rate : 165 BPM P-R Int : 112 ms QRS Dur : 082 ms QT Int : 286 ms P-R-T Axes : 050 -06 065 degrees QTc Int : 473 ms Supraventricular tachycardia Inferior-posterior infarct , age undetermined Abnormal ECG Confirmed by SONIA GONZALEZ, HARINI ([id number]), communications editor LIO CASTRO ([id number]) on 06/26/2020 10:51:04 AM Referred By: Confirmed By:HARINI SCOTT MD
[2020-06-23] MEDS: Propofol 10MG/Ml 1,000 MG/100 ML Bottle 2.9 MG CONT INF (18:40)
--- NOTE | 2020-06-23 18:42 | RAD_ITS ---
STUDY: X-RAY - ABDOMEN/PELVIS REASON FOR EXAM: Male, 65 years old. Tube placement TECHNIQUE: Single AP view of the abdomen / pelvis. COMPARISON: None. FINDINGS: There is an enteric tube noted with its tip in the stomach. The visualized bowel demonstrates no evidence of obstruction. The visualized osseous structures are within normal limits. RAD/Abdomen Single View (Portable) IMPRESSION: Enteric tube tip in the stomach. No bowel obstruction. Electronically Signed: John Morocho, at 19:26 EDT Tel , Service support ,
[2020-06-23 18:46] LABS: Absolute Lymphocyte Count 8.18 X10^3/uL (0.83-4.51); Absolute Neutrophil Count 8.2 X10^3/uL (2.0-7.7); Basophil# 0.06 X10^3/uL; Basophil% 0.3 % (0-1); Eosinophil# 0.04 X10^3/uL; Eosinophils% 0.2 % (0-5); Hematocrit 46.9 % (40-54); Hemoglobin 14.1 g/dL (13.0-16.5); Lymphocyte # 8.18 X10^3/ul (4.0); Lymphocyte % 46.1 % (19-41); Mean Corp Hgb Conc 30.1 g/dL (32-36); Mean Corpuscular Hgb 31.5 pg (27.0-32.0); Mean Corpuscular Volume 104.9 fL (80-94); Mean Platelet Vol. 10.7 fl (6.2-12.0); Monocyte# 1.22 X10^3/uL; Monocyte% 6.9 % (0-10); NRBC Flagged by Analyzer 0 % (0-5); Neutrophil # 8.16 X10^3/uL (2.7-7.7); Neutrophil % 45.9 % (47-70); POSITIVE DIFFERENTIAL YES; POSITIVE MORPHOLOGY YES; Platelet Count 200 K/mm3 (150-450); RBC Distribution Width CV 12.6 % (11.6-14.6); RBC Distribution Width SD 49.2 fl (35.1-43.9); Red Blood Count 4.47 M/mm3 (4.6-6.2); White Blood Count 17.8 K/mm3 (4.4-11.0)
--- NOTE | 2020-06-23 18:49 | ED.VIS.GEN ---
History of Present Illness Chief Complaint: Seizure Narrative: Patient arrives in status epilepticus. He has been seizing for about 45 minutes per the paramedics he had received 5 mg of Versed prior to arrival. He has a history of seizures and is on antiepileptics. I do not have a history past this from the paramedics, apparently the is supposed arrived to the emergency department but she has not done so yet. I do have a list which says that patient is on valproic acid but no other antiepileptics. Past Medical History - Allergies and Home Meds Allergies/Adverse Reactions: Allergies piperacillin [From Zosyn] Allergy (Verified 02/10/20 22:04) Rash tazobactam [From Zosyn] Allergy (Verified 02/10/20 22:04) Rash Primary Care Physician: [place] [Primary Care [facility]] - Past Medical History: - - Seizure disorder, traumatic brain injury Surgical History: - - Bilateral inguinal and umbilical hernia repair, left elbow surgery following trauma. Smoking Status: Unknown if ever smoked - Family History Maternal Family History: Reports: Cancer - Mother with history of throat cancer with concurrent tobacco usage. Paternal Family History: Reports: Cancer - Father with a history of prostate cancer. Sibling Family History: Reports: - Review of Systems ROS: Unable to Obtain - Can [place] to status epilepticus Physical Exam Vital Signs/Narrative: Vital Signs Temp Pulse Resp BP Pulse Ox 06/23/20 18:33 181 H 18 141/81 H 96 06/23/20 18:26 99.7 F H Inital Vital Signs reviewed: Yes - Most of the physical exam was done after the intubation General: - - Patient is actively seizing. Head: Normocephalic Eyes: - - Pupils are 3 mm minimally reactive ENT: Moist mucous membranes Neck: - - Rigid Cardiovascular: - - Regular tachycardia he does have pulses and capillary refill Respiratory: - - Coarse bilateral breath sounds Abdomen: Soft : - - Normal external genitalia circumcised Extremities: No edema Skin: Normal color Neurological: - - The neurological exam was done after intubation he is now a GCS of 3T Diagnostic/Tx/Re-eval - Medical Decision Making Patient did receive 2 mg of IV Ativan in the emergency department it was clear to me right away that he would not improve on his own since he has been seizing for 45 minutes I made decision to intubate for airway protection. See procedure note below. Patient received propofol drip as well as loading with phenytoin. The Ativan was given prior to intubation. Unfortunately we cannot do continuous EEG monitoring at this institution and patient will be have to be transferred. Procedure note: Endotracheal intubation The procedure was emergent secondary to a life-threatening situation thus consent was not obtained Ativan 2 mg and 100 mg of rocuronium were given. 7.5 ET tube was passed using a 4-0 Mac blade. Color change was obtained, bilateral breath sounds. - Critical Care Time Critical care time (excluding procedures): 30-74 minutes - Time was spent at the bedside, time to transfer the patient, multiple re-evaluations of the patient, discussing with family. This does not include any procedures. ED Disposition - Plan for ED Patient: Disposition: Acute Care Hospital - Other Diagnosis: Status epilepticus, Respiratory failure [facility] [[facility] -
[2020-06-23 19:03] LABS: ALB/GLOB Ratio 0.9 RATIO (0.9-2.4); AST(SGOT) 23 U/L (15-37); Alanine Aminotransfer ALT/SGPT 22 U/L (16-61); Albumin, Serum 3.5 g/dL (3.2-5.0); Alkaline Phosphatase 82 U/L (45-117); Anion Gap 20 (5-15); BUN 14 mg/dL (7-18); BUN/Creat Ratio 9.9 RATIO (10-20); Calcium,Total 8.9 mg/dL (8.5-10.1); Chloride 107 mmol/L (98-107); Creatinine, Serum 1.42 mg/dL (0.70-1.30); Differential Indicated SCAN CRITERIA MET; EST Glomerular Filtration Rate 53 mL/min (>60); Est Glom Filt Rate - Afr Amer 64 mL/min (>60); Estimated Creatinine Clearance 56.17 ml/min; Globulin 3.9 g/dL (2.2-4.2); Glucose 130 mg/dL (74-106); Lipase 119 U/L (73-393); Potassium 4.5 mmol/L (3.5-5.1); Protein, Total 7.4 g/dL (6.4-8.2); Sodium Level 141 mmol/L (136-145)
[2020-06-23 19:31] LABS: Allen Test Positive; Base Excess -7 mmol/L (-2 to +2); Bicarbonate 21.1 mmol/L (22-26); Blood Gas Specimen Type ART; FI02 100; Mode AC; O2 Delivery Device Adult Vent; PO2 268 mmHG (75-100); SITE R Radial; SO2 100 % (95-99); Total Carbon Dioxide 23 mmol/L; Vt 450; pCO2 57.1 mmHg (35-45); pH 7.18 (7.35-7.45)
[2020-06-23 19:37] LABS: International Normalized Ratio 1.1; Prothrombin Time (Protime)PT. 13.8 SECONDS (11.7-14.9)
--- NOTE | 2020-06-23 19:41 | CPS ---
critical abg results handed to dr juarez
[2020-06-23 19:45] LABS: Amphetamine Urine VISTA NEGATIVE (<1000 ng/mL); Barbiturate Urine VISTA NEGATIVE (< 200 ng/mL); Benzodiazepine Urine VISTA NEGATIVE (< 200 ng/mL); Cocaine Urine VISTA NEGATIVE (< 300 ng/mL); Ecstacy Urine VISTA NEGATIVE (< 500 ng/mL); Methadone Urine VISTA NEGATIVE (< 300 ng/mL); PCP Urine VISTA NEGATIVE (< 25 ng/mL); THC Urine VISTA NEGATIVE (< 50 ng/mL); Vista UDS pH Range 5
[2020-06-23 19:45] LABS: Alcohol, Blood (Medical)-Serum < 3.0 mg/dL
[2020-06-23 20:10] LABS: Lactic Acid 8.4 mmol/L (0.4-1.9)
--- NOTE | 2020-06-23 20:48 | ED.RN ---
PT REMAINS INTUBATED. [facility] AT BEDSIDE. 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
[2020-06-23 23:27] LABS: Reflex Lactate? Y
== END 2020-06-23 22:36 | disposition short-term general hospital (02) ==
PROVIDERS: Emergency Provider Emergency Medicine
DX: G40.901 Epilepsy, unspecified, not intractable, with status epilepticus (principal); J96.90 Respiratory failure, unspecified, unspecified whether with hypoxia or hypercapnia; Z87.820 Personal history of traumatic brain injury
CPT/HCPCS: 31500; 31720; 36600; 51702; 70450; 71045; 74018; 80053; 80307; 80320; 82803; 83605; 83690; 85025; 85610; 93005; 94002; 96365; 96366; 96375; 99251; 99285; J7030; A4216; G0463; G0480

== ENCOUNTER 2020-12-02 08:52 | Inpatient (IN) | payer MEDICARE, OTHER, SELFPAY ==
[2020-06-23 18:35] VITALS: BMI 28.4
[2020-12-02] VITALS (15 sets, daily range): BP systolic 93–125; BP diastolic 51–87; PULSE 59–103; RESP 13–23; TEMP 36.6–38.9; O2SAT 94–98; BMI 25.5; BMI 27.2; BMI 27.3
--- NOTE | 2020-12-02 09:01 | EKG12_ITS ---
Test Reason : FEVER Blood Pressure : / mmHG Vent. Rate : 093 BPM Atrial Rate : 093 BPM P-R Int : 144 ms QRS Dur : 082 ms QT Int : 346 ms P-R-T Axes : 030 -17 017 degrees QTc Int : 430 ms Sinus rhythm with occasional Premature ventricular complexes Inferior infarct , age undetermined Abnormal ECG Confirmed by LEI GONZALEZ, FEI ([id number]), newspaper photo editor LIO CASTRO ([id number]) on 12/04/2020 10:12:55 AM Referred By: AGUSTIN Confirmed By:FEI ODOM MD
--- NOTE | 2020-12-02 09:03 | ED.VIS.GEN ---
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 He is nonverbal status post traumatic brain injury. Paramedics informed me that he has had seizures with elevated temperature. No other history is obtainable. Prior similar symptoms: Yes - Per EMS Recent Illness/Hospitalization: No - Past Medical History (1) CVA (cerebral vascular accident) Status: Acute (2) Status epilepticus Status: Acute (3) TIA (transient ischemic attack) Status: Acute (4) Anxiety and depression Status: Chronic (5) History of CVA (cerebrovascular accident) Status: Chronic (6) History of intracranial hemorrhage Status: Chronic (7) Hypertension Status: Chronic (8) Parathyroid adenoma Status: Chronic Past Medical History - Allergies and Home Meds Allergies/Adverse Reactions: Allergies piperacillin [From Zosyn] Allergy (Verified 02/10/20 22:04) Rash tazobactam [From Zosyn] Allergy (Verified 02/10/20 22:04) Rash Primary Care Physician: [place] [Primary Care [facility]] - Prior records reviewed: Yes Surgical History: - - Bilateral inguinal and umbilical hernia repair, left elbow surgery following trauma. Lives: - - Unknown Smoking Status: Unknown if ever smoked Alcohol: None Drugs: None - Family History Maternal Family History: Reports: Cancer - Mother with history of throat cancer with concurrent tobacco usage. Paternal Family History: Reports: Cancer - Father with a history of prostate cancer. Sibling Family History: Reports: - Review of Systems General: Reports: Fever Genitourinary: Reports: - - Incontinence per triage nurse Physical Exam Vital Signs/Narrative: Vital Signs Temp Pulse Resp BP Pulse Ox 12/02/20 08:52 102.1 F H 103 H 23 H 100/66 94 Inital Vital Signs reviewed: Yes General: Well nourished, Well developed, No Acute Distress Head: Normocephalic, Atraumatic Eyes: Perrl, EOMI. Negative for: Pale conjunctiva ENT: No rhinorrhea, TM's clear, Dry mucous membranes Neck: Supple, Nontender, No lymphadenopathy Cardiovascular: Regular rhythm, No murmurs, Normal S1, Normal S2, Tachycardia Respiratory: No distress, Chest nontender, Rales - Lower lobe posteriorly. Negative for: CTA bilaterally Abdomen: Soft, Nontender, Nondistended, Normal bowel sounds Rectal: Deferred Back: Nontender, Normal Inspection Extremities: Nontender Skin: Normal color, No rash, No Trauma. Negative for: Cyanosis, Diaphoresis, Jaundice Neurological: Cranial nerves II-XII grossly intact. Negative for: Alert - Unable to determine, Oriented x3, Normal DTR Psychological: Normal affect Diagnostic/Tx/Re-eval Chest X-Ray - ED: 1 View, Read by ED Physician, Normal, Heart, Mediastinum, Bony Structures, No Acute Disease, - - Limited inspiratory volume. Probable atelectasis right and left lower lobe. Note obvious or discrete infiltrate. - Rhythm Strip Rhythm Strip: Sinus Tach Rate: 106 Ectopy: PVC(s) - Occasional to rare - EKG Initial EKG Interpretation: Sinus Rhythm - Normal sinus rhythm with a ventricular rate of 93. MN interval 244 ms. QRS duration 82 ms. QT duration 3 and 46 ms. [place] is normal. Computer is reading inferior infarct of indeterminate etiology. There is no Q waves noted. There is artifact and probably leading to. Misinterpretation. There, - - Is 1 premature ventricular beat noted. - Medical Decision Making Tapia presents with sepsis picture. Source is uncertain. Sepsis work-up was initiated. Chest x-ray was obtained to rule out right lower lobe pneumonia. Because of reported incontinence Montes was placed to rule out urinary tract infection as source. Also for accurate I's and O's. Patient was started on antibiotics for unknown source. He also received a fluid bolus since his blood pressure is low. He does not meet at this time criteria for 30 cc/kg bolus. Patient may have a right lower lobe pneumonia even though not seen on x-ray. Spoke to . She states the incontinence is abnormal for him. states when he has been incontinent in the past the etiology was infection. - Critical Care Time Critical care time (excluding procedures): 30-74 minutes - Critical care time 33 minutes which included obtaining history from paramedics, and review of prior records, documentation, interpretation of laboratory results and initiation of therapy. Patient did respond to fluids., Discussing w/Patient &/or Family/Director Business Development, Discussing w/Consultants - Discussed with hospitalist. He requested PCU admission., Arranging Admission or Transfer ED Disposition - Plan for ED Patient: Diagnosis: Hypotension, Systemic inflammatory response syndrome (SIRS) due to infection, Lactic acidosis, Sinus tachycardia seen on machine welt butter [facility] [[facility] -
[2020-12-02 09:13] LABS: Absolute Lymphocyte Count 0.69 X10^3/uL (0.83-4.51); Absolute Neutrophil Count 7.3 X10^3/uL (2.0-7.7); Basophil# 0.01 X10^3/uL; Basophil% 0.1 % (0-1); Eosinophil# 0.01 X10^3/uL; Eosinophils% 0.1 % (0-5); Hematocrit 40.4 % (40-54); Hemoglobin 13.5 g/dL (13.0-16.5); Lymphocyte # 0.69 X10^3/ul (4.0); Lymphocyte % 7.9 % (19-41); Mean Corp Hgb Conc 33.4 g/dL (32-36); Mean Corpuscular Hgb 33.3 pg (27.0-32.0); Mean Corpuscular Volume 99.8 fL (80-94); Mean Platelet Vol. 9.9 fl (6.2-12.0); Monocyte# 0.69 X10^3/uL; Monocyte% 7.9 % (0-10); NRBC Flagged by Analyzer 0 % (0-5); Neutrophil # 7.33 X10^3/uL (2.7-7.7); Neutrophil % 83.8 % (47-70); POSITIVE COUNT YES; Platelet Count 85 K/mm3 (150-450); RBC Distribution Width CV 14.8 % (11.6-14.6); RBC Distribution Width SD 55.1 fl (35.1-43.9); Red Blood Count 4.05 M/mm3 (4.6-6.2); White Blood Count 8.8 K/mm3 (4.4-11.0)
[2020-12-02 09:15] LABS: International Normalized Ratio 1.1; Prothrombin Time (Protime)PT. 13.2 SECONDS (11.7-14.9)
[2020-12-02 09:16] LABS: Differential Indicated SCAN CRITERIA MET; Partial Thromboplast Time 25.7 Seconds (24.1-36.2)
--- NOTE | 2020-12-02 09:20 | RAD_ITS ---
STUDY: X-RAY CHEST REASON FOR EXAM: Male, 65 years old. fever rales RLL TECHNIQUE: Single AP portable view of the chest. COMPARISON: 06/23/2020 FINDINGS: Interval removal of endotracheal tube and nasogastric tube. Poor inspiration with some bibasilar atelectasis. There is no demonstrated pleural abnormality. Normal size heart. Normal mediastinum and tanmay. Normal visualized pulmonary arteries. Normal visualized aortic arch and descending thoracic aorta. Normal visualized thoracic spine. Healed fracture the left clavicle. Multiple healed left rib fractures. There is no demonstrated abnormality of the visualized soft tissue structures of the upper abdomen. RAD/Chest 1 View (Portable) IMPRESSION: Poor inspiration with some bibasilar atelectasis. Electronically Signed: Kody Ching MD at 9:39 EDT Tel , Service support ,
[2020-12-02] MEDS: 0.9% Normal Saline 1,000 ML 1000 ML IV (09:21)
[2020-12-02 09:22] LABS: ALB/GLOB Ratio 0.7 RATIO (0.9-2.4); AST(SGOT) 28 U/L (15-37); Alanine Aminotransfer ALT/SGPT 25 U/L (16-61); Albumin, Serum 2.4 g/dL (3.2-5.0); Alkaline Phosphatase 69 U/L (45-117); Anion Gap 5 (5-15); BUN 23 mg/dL (7-18); Calcium,Total 8.3 mg/dL (8.5-10.1); Chloride 110 mmol/L (98-107); EST Glomerular Filtration Rate 79 mL/min (>60); Est Glom Filt Rate - Afr Amer 96 mL/min (>60); Estimated Creatinine Clearance 79.76 ml/min; Globulin 3.3 g/dL (2.2-4.2); Glucose 135 mg/dL (74-106); Protein, Total 5.7 g/dL (6.4-8.2); Sodium Level 143 mmol/L (136-145)
[2020-12-02] MEDS: Acetaminophen 650 MG Suppository RECTAL (09:37)
[2020-12-02 09:42] LABS: Platelet Estimate MOD DEC (ADEQ)
[2020-12-02 09:49] LABS: Lactic Acid 2.6 mmol/L (0.4-1.9)
[2020-12-02 09:55] LABS: Bacteria 0 SEEN /hpf (None Seen); Mucous, Urine 0 SEEN /hpf (<or=2+); Red Blood Cells-Urine 0 SEEN /hpf (0-5); White Blood Cells 0 SEEN /hpf (0-5)
[2020-12-02 10:01] LABS: Color, Urine Yellow (Yellow); Glucose, Dipstick Normal (Normal); Ketone-Dipstick 15 mg/dl (Negative); Leukocyte Esterase-Dipstick Negative /ul (Negative); Nitrite-Dipstick Negative (Negative); Occult Blood-Urine Negative /ul (Negative); Protein-Dipstick Negative (Negative); Specific Gravity, Urine 1.015 (1.002-1.030); Urine Bilirubin Dipstick Negative (Negative); Urine Clarity Sl. Cloudy (Clear); Urine Urobilinogen Normal (Normal)
[2020-12-02 10:07] LABS: Squamous Epithelial Cells - UA 0-5 SEEN /hpf (0-5)
[2020-12-02 13:17] LABS: Reflex Lactate? Y
[2020-12-02 14:10] LABS: Lactic Acid 1.5 mmol/L (0.4-1.9)
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
--- NOTE | 2020-12-02 16:18 | TELEMED_ITS ---
[facility] has confirmed receipt of a request for visit. This document confirms receipt of the order initiating the consult. To find the results of the consultation, please view the patient's reports for the scanned Telemed Consult.
[2020-12-02] MEDS: Divalproex Sodium 250 MG Tablet 1250 MG PO ×2 (17:09→22:21)
[2020-12-02] MEDS: ZONISAMIDE 100 MG CAPSULE 200 MG PO (22:21)
[2020-12-02] MEDS: Pantoprazole Sodium 20 MG Tablet PO (22:22)
[2020-12-02] MEDS: MELATONIN 10 MG TABLET PO (22:22)
[2020-12-03] VITALS (9 sets, daily range): BP systolic 104–127; BP diastolic 59–72; PULSE 62–81; RESP 14–16; TEMP 36.4–37.2; O2SAT 94–96
[2020-12-03] MEDS: Divalproex Sodium 250 MG Tablet 1250 MG PO ×3 (05:48→21:15)
[2020-12-03 06:35] LABS: Absolute Neutrophil Count 5.6 X10^3/uL (2.0-7.7); Basophil# 0.01 X10^3/uL; Basophil% 0.1 % (0-1); Eosinophil# 0.06 X10^3/uL; Eosinophils% 0.7 % (0-5); Hematocrit 35.4 % (40-54); Hemoglobin 11.5 g/dL (13.0-16.5); Mean Corp Hgb Conc 32.5 g/dL (32-36); Mean Corpuscular Hgb 33.2 pg (27.0-32.0); Mean Corpuscular Volume 102.3 fL (80-94); Mean Platelet Vol. 10.1 fl (6.2-12.0); Monocyte# 0.73 X10^3/uL; Monocyte% 8.2 % (0-10); NRBC Flagged by Analyzer 0 % (0-5); Neutrophil # 5.61 X10^3/uL (2.7-7.7); Neutrophil % 62.7 % (47-70); POSITIVE COUNT YES; Platelet Count 80 K/mm3 (150-450); RBC Distribution Width CV 15.4 % (11.6-14.6); RBC Distribution Width SD 57.6 fl (35.1-43.9); Red Blood Count 3.46 M/mm3 (4.6-6.2); White Blood Count 8.9 K/mm3 (4.4-11.0)
[2020-12-03 06:59] LABS: ALB/GLOB Ratio 0.7 RATIO (0.9-2.4); AST(SGOT) 17 U/L (15-37); Alanine Aminotransfer ALT/SGPT 18 U/L (16-61); Alkaline Phosphatase 53 U/L (45-117); Anion Gap 4 (5-15); BUN 21 mg/dL (7-18); BUN/Creat Ratio 28.5 RATIO (10-20); Calcium,Total 7.7 mg/dL (8.5-10.1); Chloride 113 mmol/L (98-107); Creatinine, Serum 0.74 mg/dL (0.70-1.30); EST Glomerular Filtration Rate 113 mL/min (>60); Est Glom Filt Rate - Afr Amer 137 mL/min (>60); Estimated Creatinine Clearance 75.03 ml/min; Glucose 84 mg/dL (74-106); Potassium 3.4 mmol/L (3.5-5.1); Sodium Level 143 mmol/L (136-145)
[2020-12-03] MEDS: Thiamine Hydrochloride 100 MG Tablet PO ×2 (09:44→17:12)
[2020-12-03] MEDS: Enoxaparin 40 MG/0.4 ML Syringe SC (09:44)
--- NOTE | 2020-12-03 10:44 | PCM.PN.HOSP ---
<Bonnie Mendez - Last Filed: 12/03/20 10:44> Patient Problems: Active and Suspected Problems Hypotension (Acute) Systemic inflammatory response syndrome (SIRS) due to infection (Acute) Lactic acidosis (Acute) Sinus tachycardia seen on equipment monitor phototypesetting (Acute) Subjective: Patient seen and examined. Patient affect is flat, minimally verbal with me. Urinary catheter in place, urine culture negative. Lactic acidosis resolved. Potassium 3.4 this morning, K-Dur 40 mEq p.o. x1 ordered. Vitals/I&O's: Vital Signs Temp Pulse Resp BP Pulse Ox 97.7 F L 71 14 104/66 94 12/03/20 10:10 12/03/20 10:10 12/03/20 10:10 12/03/20 10:10 12/03/20 10:10 Oxygen Delivery Method Room Air Weight: 190 lb Body Mass Index (BMI) 27.2 Finger Stick Blood Glucose 108 Intake and Output for Last 24 Hours 12/01/20 12/02/20 12/03/20 23:59 23:59 23:59 Intake Total 2049 / 2049 150 / 150 Output Total 800 / 800 200 / 200 Balance 1250 / 1250 -50 / -50 General: Alert, Oriented x3, Cooperative HEENT: Atraumatic, PERRLA, EOMI, Normocephalic Neck: Supple, No JVD, Negative Carotid Bruits Lungs: Clear to auscultation, Normal air movement, Diminished Cardiovascular: Regular rate, Regular Rhythm, Normal S1, Normal S2, No murmurs Abdomen: Bowel Sounds Present, Soft, Non Tender Extremities: No edema, Capillary Refill Less than 3 Seconds Skin: No rashes, No breakdown Musculoskeletal: No Tenderness to Palpation of Joints or Extremities Neurological: Cranial nerves II-XII grossly intact Psych/Mental Status: Appropriate, Flat Affect Microbiology Past 72 Hours 12/02/20 09:48 Urine Catheter - Montes Urine Culture - Preliminary Culture exhibits no growth. 12/02/20 19:15 Mucosa - Nasopharyngeal Respiratory Panel (PCR) - Final 12/02/20 10:35 Mucosa - Nose SARS-CoV-2 Antigen (Rapid) - Final Laboratory Results 12/02/20 13:35: Lactic Acid 1.5 12/03/20 06:00: WBC 8.9, RBC 3.46 L, Hgb 11.5 L, Hct 35.4 L, MCV 102.3 H, MCH 33.2 H, MCHC 32.5, RDW Std Deviation 57.6 H, RDW Coeff of Chelo 15.4 H, Plt Count 80 L, MPV 10.1, Immature Gran % (Auto) 0.300, Neut % (Auto) 62.7, Lymph % (Auto) 28.0, Bladen % (Auto) 8.2, Eos % (Auto) 0.7, Baso % (Auto) 0.1, Absolute Neuts (auto) 5.6, Absolute Lymphs (auto) 2.50, Nucleated RBC % 0 12/03/20 06:00: Sodium 143, Potassium 3.4 L, Chloride 113 H, Carbon Dioxide 26.0, Anion Gap 4 L, BUN 21 H, Creatinine 0.74, Estim Creat Clear Calc 75.03, Est GFR (MDRD) Af Amer 137, Est GFR (MDRD) Non-Af 113, BUN/Creatinine Ratio 28.5 H, Glucose 84, Calcium 7.7 L, Total Bilirubin 0.60, AST 17, ALT 18, Alkaline Phosphatase 53, Total Protein 5.0 L, Albumin 2.0 L, Globulin 3.0, Albumin/Globulin Ratio 0.7 L Current Medications Acetaminophen (Acetaminophen 325 Mg Tablet) 650 mg PO Q6H PRN PRN PRN Reason: Pain Score 1-10/Temp > 100.7 F Divalproex Sodium (Divalproex Sodium 250 Mg Tablet) 1,250 mg PO TID [facility] Last Admin: 12/03/20 05:48 Dose: 1,250 mg Documented by: Enoxaparin Sodium (Enoxaparin 40 Mg/0.4 Ml Syringe) 40 mg SC DAILY [facility] Last Admin: 12/03/20 09:44 Dose: 40 mg Documented by: Ceftriaxone Sodium 2 gm/ (Sodium Chloride) 50 mls @ 100 mls/hr IV Q24 [facility] Stop: 12/10/20 10:01 Last Infusion: 12/03/20 10:22 Dose: Infused Documented by: Azithromycin 500 mg/ Dextrose 255 mls @ 250 mls/hr IV Q24 [facility] Stop: 12/08/20 10:01 Last Admin: 12/03/20 10:27 Dose: 250 mls/hr Documented by: Melatonin (Melatonin 10 Mg Tablet) 10 mg PO QHS [facility] Last Admin: 12/02/20 22:22 Dose: 10 mg Documented by: Nutritional Formula (Lactose Free) (Ensure Enlive 120 Ml Liquid) 120 ml PO 4X/DAY [facility] Last Admin: 12/03/20 09:34 Dose: 120 ml Documented by: Ondansetron HCl (Ondansetron 4 Mg/2 Ml Vial) 4 mg IV Q8H PRN PRN PRN Reason: NAUSEA/VOMITING Pantoprazole Sodium (Pantoprazole Sodium 20 Mg Tablet) 20 mg PO QHS [facility] Last Admin: 12/02/20 22:22 Dose: 20 mg Documented by: Potassium Chloride (Potassium Chloride Oral Tablet 20 Meq) 40 meq PO X1 ONE Stop: 12/03/20 10:43 Thiamine HCl (Thiamine Hydrochloride 100 Mg Tablet) 100 mg PO BIDCM [facility] Last Admin: 12/03/20 09:44 Dose: 100 mg Documented by: Zonisamide (Zonisamide 100 Mg Capsule) 200 mg PO QHS [facility] Last Admin: 12/02/20 22:21 Dose: 200 mg Documented by: STROKE Vital Signs/Narrative: Vital Signs Temp Pulse Resp BP Pulse Ox 12/03/20 10:10 97.7 F L 71 14 104/66 94 12/03/20 07:00 62 Medical Necessity - Tobacco Use Smoking Status: Never smoker Tobacco Use: Non-smoker Assessment/Plan All Active Problems Hypotension (Acute) Systemic inflammatory response syndrome (SIRS) due to infection (Acute) Lactic acidosis (Acute) Sinus tachycardia seen on equipment monitor phototypesetting (Acute) 1. Systemic inflammatory response syndrome-urine culture negative. Blood cultures pending, continue antibiotics for now. will obtain CBC in am. 2. Seizure disorder-continue antiepileptics. [facility] neurology consult pending. 3.Parkinsonism-Pt continues to be quick to anger. will have patient follow up outpatient with neurology 4. Hypokalemia- K 3.4 this am, potassium chloride 40meq PO x1 ordered. will obtain BMP in am. DVT Prophylaxis-sq Lovenox This patient was seen by STARLA García under the supervision of Dr. De Santiago. <Heron De Santiago - Last Filed: 12/03/20 13:33> Vitals/I&O's: Vital Signs Temp Pulse Resp BP Pulse Ox 36.5 C L 71 14 104/66 94 12/03/20 10:10 12/03/20 10:10 12/03/20 10:10 12/03/20 10:10 12/03/20 10:10 Oxygen Delivery Method Room Air Weight: 86.183 kg Body Mass Index (BMI) 27.2 Finger Stick Blood Glucose 108 Intake and Output for Last 24 Hours 12/01/20 12/02/20 12/03/20 23:59 23:59 23:59 Intake Total 2049 / 2049 765 / 765 Output Total 800 / 800 340 / 340 Balance 1250 / 1250 425 / 425 General: Alert, Cooperative, - - Up in chair. She establishes eye contact but minimally conversant though does answer questions appropriately but in 1-2 words. HEENT: Atraumatic, Normocephalic Neck: Supple, Negative Carotid Bruits Lungs: Clear to auscultation, Normal air movement, No rhonchi, No wheeze, Diminished Cardiovascular: Regular rate, Regular Rhythm, Normal S1, Normal S2, No murmurs Abdomen: Bowel Sounds Present, Soft, Non Tender Skin: No rashes, No breakdown Musculoskeletal: No Tenderness to Palpation of Joints or Extremities Psych/Mental Status: Appropriate, Flat Affect Microbiology Past 72 Hours 12/02/20 09:48 Urine Catheter - Montes Urine Culture - Preliminary Culture exhibits no growth. 12/02/20 19:15 Mucosa - Nasopharyngeal Respiratory Panel (PCR) - Final 12/02/20 10:35 Mucosa - Nose SARS-CoV-2 Antigen (Rapid) - Final Laboratory Results 12/02/20 13:35: Lactic Acid 1.5 12/03/20 06:00: WBC 8.9, RBC 3.46 L, Hgb 11.5 L, Hct 35.4 L, MCV 102.3 H, MCH 33.2 H, MCHC 32.5, RDW Std Deviation 57.6 H, RDW Coeff of Chelo 15.4 H, Plt Count 80 L, MPV 10.1, Immature Gran % (Auto) 0.300, Neut % (Auto) 62.7, Lymph % (Auto) 28.0, Bladen % (Auto) 8.2, Eos % (Auto) 0.7, Baso % (Auto) 0.1, Absolute Neuts (auto) 5.6, Absolute Lymphs (auto) 2.50, Nucleated RBC % 0 12/03/20 06:00: Sodium 143, Potassium 3.4 L, Chloride 113 H, Carbon Dioxide 26.0, Anion Gap 4 L, BUN 21 H, Creatinine 0.74, Estim Creat Clear Calc 75.03, Est GFR (MDRD) Af Amer 137, Est GFR (MDRD) Non-Af 113, BUN/Creatinine Ratio 28.5 H, Glucose 84, Calcium 7.7 L, Total Bilirubin 0.60, AST 17, ALT 18, Alkaline Phosphatase 53, Total Protein 5.0 L, Albumin 2.0 L, Globulin 3.0, Albumin/Globulin Ratio 0.7 L Current Medications Acetaminophen (Acetaminophen 325 Mg Tablet) 650 mg PO Q6H PRN PRN PRN Reason: Pain Score 1-10/Temp > 100.7 F Divalproex Sodium (Divalproex Sodium 250 Mg Tablet) 1,250 mg PO TID [facility] Last Admin: 12/03/20 05:48 Dose: 1,250 mg Documented by: Enoxaparin Sodium (Enoxaparin 40 Mg/0.4 Ml Syringe) 40 mg SC DAILY [facility] Last Admin: 12/03/20 09:44 Dose: 40 mg Documented by: Ceftriaxone Sodium 2 gm/ (Sodium Chloride) 50 mls @ 100 mls/hr IV Q24 [facility] Stop: 12/10/20 10:01 Last Infusion: 12/03/20 10:22 Dose: Infused Documented by: Azithromycin 500 mg/ Dextrose 255 mls @ 250 mls/hr IV Q24 [facility] Stop: 12/08/20 10:01 Last Infusion: 12/03/20 11:41 Dose: Infused Documented by: Melatonin (Melatonin 10 Mg Tablet) 10 mg PO QHS [facility] Last Admin: 12/02/20 22:22 Dose: 10 mg Documented by: Nutritional Formula (Lactose Free) (Ensure Enlive 120 Ml Liquid) 120 ml PO 4X/DAY [facility] Last Admin: 12/03/20 09:34 Dose: 120 ml Documented by: Ondansetron HCl (Ondansetron 4 Mg/2 Ml Vial) 4 mg IV Q8H PRN PRN PRN Reason: NAUSEA/VOMITING Pantoprazole Sodium (Pantoprazole Sodium 20 Mg Tablet) 20 mg PO QHS [facility] Last Admin: 12/02/20 22:22 Dose: 20 mg Documented by: Thiamine HCl (Thiamine Hydrochloride 100 Mg Tablet) 100 mg PO BIDCM [facility] Last Admin: 12/03/20 09:44 Dose: 100 mg Documented by: Zonisamide (Zonisamide 100 Mg Capsule) 200 mg PO QHS [facility] Last Admin: 12/02/20 22:21 Dose: 200 mg Documented by: STROKE Vital Signs/Narrative: Vital Signs Temp Pulse Resp BP Pulse Ox 12/03/20 10:10 36.5 C L 71 14 104/66 94 Assessment/Plan Patient seen and examined independently. Data reviewed. I agree with the above note by the nurse practitioner. 1. Systemic inflammatory response syndrome Etiology unclear. Could be pneumonia though is difficult to identify on poor inspiratory film. UA and COVID 19 negative Plan: continue with abx with ctx and azithromycin for now follow up blood cultures 2. 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 Patient has been on zonisamide, taurine and Depakote Cannot rule out that the patient had a seizure, however, the patient's tingling other does not suspect that he did because it was atypical compared to his other bouts of seizures. Plan Continue with his antiepileptics Patient's significant other was asking about neurology evaluation which she was post who is seen as outpatient today in regards to addressing his antiepileptics. Discussed with [facility] teleneurology, advised outpatient follow-up with [place] neurology has the has specified to neurology that patient was doing well till he was started on zonisamide and has been very lethargic with that and then tends to get better in the afternoon. He is recommending follow-up so they may consider Vimpat instead of zonisamide. I did recommend getting a Depakote level as well as head CT to rule out any other acute process. [facility] currently looking into bed availability. 3. Parkinsonism Not formally Parkinson's disease Patient very impulsive at times and can be quick to anger Plan: Follow-up with neurology as outpatient spoke with [facility] teleneurology was not sure the patient does have parkinsonism but that would need to be determined as outpatient but is concerned that this could be a medication effect from the zonisamide. 4. Lactic acidosis Etiology could be infectious or seizure or other. It is since resolved. 5. VTE prophylaxis with Lovenox Inpatient E&M: [id number] [facility] L3
--- NOTE | 2020-12-03 11:46 | CASEMGMT ---
Addendum entered by Joselin Cortes 12/03/20 12:24: [place] requests trf [place]. Pt unable to make this decision at this time. [place] to [place], spoke with Capo and information given. Faxed H&P, progress note, CXR, and demos. Dr. De Santiago notified via cortext. Original Note: HALLE ALSTON Assessment: TC to pt SO for initial transition planning/care coordination assessment as pt unable to answer questions. HALLE ALSTON introduced self and role at [facility], SO voices understanding and consents to assessment. Care providers, pharmacy, and demographics verified/updated. Presentation: incontinence, fever Admitting dx: SIRS, hypotension, lactic acidosis, sinus tachycardia PCP: Linden Berry- [facility] Specialists: Jelani- neuro, Jerardo- psych Preferred Pharmacy: [facility], [place] Prescription Benefit: [place] LW/HPOA: SO reports pt has a LW and she is the POA. She is coming to the hospital and will bring a copy of the documents with her today. LNOK: SO, Abbyestrellita Amalia Living Arrangements: Pt lives with SO in a 2 story house. Pt uses both stories in home as the bedrooms are upstairs. There are 13 steps to upper level with hand rail. Pt needs assistance with ADL's which is provided by SO or her nephew as he is staying in the home to help care for pt. Transportation: SO. No transporation concerns. DME/HHC: Pt has a walker, shower chair in the home. A bed alarm has been ordered but has not arrived. Denies need for further DME. Pt has previously had [facility] and been in [facility]. Pt [facility] but has been unengageable for the last 2 1/2-3 wks. SO states she returns back to work tomorrow but has no concerns with pt returning home at time of dc. SO states no further concerns/needs. CM to follow for any further dc planning/needs. Advised SO to ask for CM if any further questions/concerns/needs arise, voices understanding.
--- NOTE | 2020-12-03 11:46 | CASEMGMT ---
HALLE ALSTON Assessment: TC to pt SO for initial transition planning/care coordination assessment as pt unable to answer questions. HALLE ALSTON introduced self and role at [facility], SO voices understanding and consents to assessment. Care providers, pharmacy, and demographics verified/updated. Presentation: incontinence, fever Admitting dx: pneumonia PCP: Linden Berry- [place] [facility] Specialists: Jelani- neuro, Jerardo- psych Preferred Pharmacy: [facility] [place], [place] Prescription Benefit: [facility] LW/HPOA: SO reports pt has a LW and she is the POA. She is coming to the hospital and will bring a copy of the documents with her today. LNOK: SO, Jose Holland Living Arrangements: Pt lives with significant other in a 2 story house. Pt uses both stories in home as the bedrooms are upstairs. There are 13 steps to upper level with hand rail. Pt needs assistance with ADL's which is provided by sig other or her nephew as he is staying in the home to help care for pt. Transportation: SO. No transporation concerns. DME/HHC: Pt has a walker, shower chair in the home. A bed alarm has been ordered but has not arrived. Denies need for further DME. Pt has previously had [facility] and been in [facility]. Pt is [facility] but has been unengageable for the last 2 1/2-3 wks. Sig other states she returns back to work tomorrow but has no concerns with pt returning home at time of dc. SO states no further concerns/needs. CM to follow for any further dc planning/needs. Advised SO to ask for CM if any further questions/concerns/needs arise, voices understanding.
[2020-12-03] MEDS: Potassium Chloride Oral Tablet 20 MEQ 40 MEQ PO (13:23)
--- NOTE | 2020-12-03 13:26 | CT_ITS ---
STUDY: CT BRAIN WITHOUT CONTRAST REASON FOR EXAM: Male, 65 years old. Confusion RADIATION DOSAGE (If Supplied By Facility): CTDIvol = ( 44.99 ) mGy, DLP = ( 829.85 ) mGycm TECHNIQUE: Transaxial CT imaging of the brain was performed without administration of intravenous contrast material. Individualized dose optimization techniques were used for this CT. COMPARISON: Comparison is made with prior study dated 06/23/2020. FINDINGS: Normal soft tissue structures. Normal calvarium. There is mild cerebral atrophy with widening of the extra-axial spaces and ventricular dilatation. There are areas of decreased attenuation within the white matter tracts of the supratentorial brain, consistent with microvascular disease changes. 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 Normal basal ganglia and thalami. Normal brainstem. Normal cerebellum. There is no intracranial hemorrhage. There are no findings of an acute ischemic infarction. Normal visualized paranasal sinuses. CT/Brain/Head without Contrast IMPRESSION: Chronic involutional changes of the brain. Stable encephalomalacia in the left temporal lobe. Electronically Signed: López Colon MD at 14:17 EDT , Service support ,
[2020-12-03 15:06] LABS: Valproic Acid (Depakene) Level 120 ug/mL (50-100)
--- NOTE | 2020-12-03 15:14 | CHAPLAIN ---
Type of Pastoral Visit _x__ Initial Visit ___ Follow-up Visit ___ On-call Visit ___ General Patient Visit ___ Spiritual Assessment ___ Family Conference ___ Bereavement ___ Rapid Response ___ Code Blue ___ Other (describe below) Pastoral Care Referral From _x__ Patient _x__ Family _x__ Nurse ___ Physician ___ Compressor Mechanic Bus ___ Sewer Tapper ___ Other (describe below) Sacrament/Intervention _x__ Active listening ___ Anointing ___ Bahai ___ Bereavement ___ Communion _x__ Lisa exploration ___ ___ Life review _x__ Prayer ___ Reconciliation ___ Sacrament of Sick _x__ Supportive presence ___ Wedding ___ Other (describe below) Pastoral Comments SO or family member is in the room of this patient and she is welcoming of visit; soon discovered that pt is slow to respond verbally and uses minimal words however he appears to have adequate cognition and does respond appropriately when he does; pt and SO had new health developments today which they report as quite positive; SO urges pt to interact with this 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
[2020-12-03] MEDS: Pantoprazole Sodium 20 MG Tablet PO (21:15)
[2020-12-03] MEDS: ZONISAMIDE 100 MG CAPSULE 200 MG PO (21:15)
[2020-12-03] MEDS: MELATONIN 10 MG TABLET PO (21:15)
[2020-12-04 03:00] VITALS: PULSE 59
[2020-12-04 03:15] VITALS: BP 131/75; PULSE 61; RESP 18; TEMP 36.2; O2SAT 97
[2020-12-04 05:18] LABS: Absolute Lymphocyte Count 2.27 X10^3/uL (0.83-4.51); Absolute Neutrophil Count 3.9 X10^3/uL (2.0-7.7); Basophil# 0.02 X10^3/uL; Basophil% 0.3 % (0-1); Eosinophil# 0.06 X10^3/uL; Eosinophils% 0.9 % (0-5); Hematocrit 36.4 % (40-54); Hemoglobin 12.1 g/dL (13.0-16.5); Lymphocyte # 2.27 X10^3/ul (4.0); Lymphocyte % 32.6 % (19-41); Mean Corp Hgb Conc 33.2 g/dL (32-36); Mean Corpuscular Hgb 32.7 pg (27.0-32.0); Mean Corpuscular Volume 98.4 fL (80-94); Mean Platelet Vol. 10.2 fl (6.2-12.0); Monocyte# 0.64 X10^3/uL; Monocyte% 9.2 % (0-10); NRBC Flagged by Analyzer 0 % (0-5); Neutrophil # 3.94 X10^3/uL (2.7-7.7); Neutrophil % 56.6 % (47-70); POSITIVE COUNT YES; Platelet Count 86 K/mm3 (150-450); RBC Distribution Width CV 14.9 % (11.6-14.6); RBC Distribution Width SD 54.1 fl (35.1-43.9)
[2020-12-04 05:32] LABS: Anion Gap 5 (5-15); BUN 23 mg/dL (7-18); BUN/Creat Ratio 29.7 RATIO (10-20); Calcium,Total 8.2 mg/dL (8.5-10.1); Chloride 112 mmol/L (98-107); Creatinine, Serum 0.77 mg/dL (0.70-1.30); EST Glomerular Filtration Rate 107 mL/min (>60); Est Glom Filt Rate - Afr Amer 129 mL/min (>60); Estimated Creatinine Clearance 75.03 ml/min; Glucose 82 mg/dL (74-106); Potassium 3.9 mmol/L (3.5-5.1); Sodium Level 141 mmol/L (136-145)
[2020-12-04] MEDS: Divalproex Sodium 250 MG Tablet 1250 MG PO (06:07)
[2020-12-04 07:00] VITALS: PULSE 63
--- NOTE | 2020-12-04 08:05 | CASEMGMT ---
Capo egg caser from [place] called and requested pt labs from today to be faxed. Faxed at this time. He states he will present the case to the doctors today.
[2020-12-04] MEDS: Enoxaparin 40 MG/0.4 ML Syringe SC (08:42)
[2020-12-04] MEDS: Thiamine Hydrochloride 100 MG Tablet PO (08:42)
[2020-12-04 09:15] VITALS: BP 101/79; PULSE 93; RESP 18; TEMP 36.7; O2SAT 96
--- NOTE | 2020-12-04 10:04 | PN_ITS ---
Patient Problems: Active and Suspected Problems Hypotension (Acute) Systemic inflammatory response syndrome (SIRS) due to infection (Acute) Lactic acidosis (Acute) Sinus tachycardia seen on athletic monitor (Acute) Subjective: Patient seen and examined. Patient affect is flat, minimally verbal with me. No changes overnight. Patient was seen by teleneurology yesterday recommended CT of brain showed chronic changes only. teleneurology also recommended checking a Depakote level resulted at 120. Teleneurology was again consulted today for recommendation regarding Depakote dosing. Vitals/I&O's: Vital Signs Temp Pulse Resp BP Pulse Ox 98.0 F 93 18 101/79 96 12/04/20 09:15 12/04/20 09:15 12/04/20 09:15 12/04/20 09:15 12/04/20 09:15 Oxygen Delivery Method Room Air Weight: 190 lb Body Mass Index (BMI) 27.2 Finger Stick Blood Glucose 108 Intake and Output for Last 24 Hours 12/02/20 12/03/20 12/04/20 23:59 23:59 23:59 Intake Total 2049 / 0 1725 / 1775 100 / 100 Output Total 800 / 800 840 / 1640 1400 / 1400 Balance 1250 / 1250 885 / 135 -1300 / -1300 General: Alert, Cooperative, - - Minimally verbal, does not answer questions HEENT: Atraumatic, PERRLA, EOMI, Normocephalic Neck: Supple, No JVD, Negative Carotid Bruits Lungs: Clear to auscultation, Normal air movement Cardiovascular: Regular rate, Regular Rhythm, Normal S1, Normal S2, No murmurs Abdomen: Bowel Sounds Present, Soft, Non Tender Extremities: No edema, Capillary Refill Less than 3 Seconds Skin: No rashes, No breakdown Musculoskeletal: No Tenderness to Palpation of Joints or Extremities Neurological: Cranial nerves II-XII grossly intact, Motor Exam 5/5 strength throughout Psych/Mental Status: Appropriate, Flat Affect Microbiology Past 72 Hours 12/02/20 09:48 Urine Catheter - Montes Urine Culture - Final Culture exhibits no growth. 12/02/20 09:10 Blood Culture (Wb) - Anticubital Left Blood Culture - Preliminary No growth in 48 hours. 12/02/20 09:20 Blood Culture (Wb) - Anticubital Right Blood Culture - Preliminary No growth in 48 hours. 12/02/20 19:15 Mucosa - Nasopharyngeal Respiratory Panel (PCR) - Final 12/02/20 10:35 Mucosa - Nose SARS-CoV-2 Antigen (Rapid) - Final Laboratory Results 12/03/20 13:27: Valproic Acid 120 H 12/04/20 05:02: WBC 7.0, RBC 3.70 L, Hgb 12.1 L, Hct 36.4 L, MCV 98.4 H, MCH 32.7 H, MCHC 33.2, RDW Std Deviation 54.1 H, RDW Coeff of Hcelo 14.9 H, Plt Count 86 L, MPV 10.2, Immature Gran % (Auto) 0.400, Neut % (Auto) 56.6, Lymph % (Auto) 32.6, [place] % (Auto) 9.2, Eos % (Auto) 0.9, Baso % (Auto) 0.3, Absolute Neuts (auto) 3.9, Absolute Lymphs (auto) 2.27, Nucleated RBC % 0 12/04/20 05:02: Sodium 141, Potassium 3.9, Chloride 112 H, Carbon Dioxide 24.0, Anion Gap 5, BUN 23 H, Creatinine 0.77, Estim Creat Clear Calc 75.03, Est GFR (MDRD) Af Amer 129, Est GFR (MDRD) Non-Af 107, BUN/Creatinine Ratio 29.7 H, Glucose 82, Calcium 8.2 L Current Medications Acetaminophen (Acetaminophen 325 Mg Tablet) 650 mg PO Q6H PRN PRN PRN Reason: Pain Score 1-10/Temp > 100.7 F Divalproex Sodium (Divalproex Sodium 250 Mg Tablet) 1,250 mg PO TID [facility] Last Admin: 12/04/20 06:07 Dose: 1,250 mg Documented by: Enoxaparin Sodium (Enoxaparin 40 Mg/0.4 Ml Syringe) 40 mg SC DAILY [facility] Last Admin: 12/04/20 08:42 Dose: 40 mg Documented by: Ceftriaxone Sodium 2 gm/ (Sodium Chloride) 50 mls @ 100 mls/hr IV Q24 [facility] Stop: 12/10/20 10:01 Last Infusion: 12/04/20 09:16 Dose: Infused Documented by: Azithromycin 500 mg/ Dextrose 255 mls @ 250 mls/hr IV Q24 [facility] Stop: 12/08/20 10:01 Last Admin: 12/04/20 09:27 Dose: 250 mls/hr Documented by: Melatonin (Melatonin 10 Mg Tablet) 10 mg PO QHS [facility] Last Admin: 12/03/20 21:15 Dose: 10 mg Documented by: Nutritional Formula (Lactose Free) (Ensure Enlive 120 Ml Liquid) 120 ml PO 4X/DAY [facility] Last Admin: 12/04/20 08:43 Dose: Not Given Documented by: Ondansetron HCl (Ondansetron 4 Mg/2 Ml Vial) 4 mg IV Q8H PRN PRN PRN Reason: NAUSEA/VOMITING Pantoprazole Sodium (Pantoprazole Sodium 20 Mg Tablet) 20 mg PO QHS [facility] Last Admin: 12/03/20 21:15 Dose: 20 mg Documented by: Thiamine HCl (Thiamine Hydrochloride 100 Mg Tablet) 100 mg PO BIDCM [facility] Last Admin: 12/04/20 08:42 Dose: 100 mg Documented by: Zonisamide (Zonisamide 100 Mg Capsule) 200 mg PO QHS [facility] Last Admin: 12/03/20 21:15 Dose: 200 mg Documented by: STROKE Vital Signs/Narrative: Vital Signs Temp Pulse Resp BP Pulse Ox 12/04/20 09:15 98.0 F 93 18 101/79 96 12/04/20 07:00 63 Medical Necessity - Tobacco Use Smoking Status: Never smoker Tobacco Use: Non-smoker Assessment/Plan All Active Problems Hypotension (Acute) Systemic inflammatory response syndrome (SIRS) due to infection (Acute) Lactic acidosis (Acute) Sinus tachycardia seen on athletic monitor (Acute) 1. Systemic inflammatory response syndrome-blood and urine cultures negative. WBC normal. vital signs stable, afebrile. Will discontinue antibiotics at this time. 2. Seizure disorder?related to traumatic brain injury received in 2017. Continue antiepileptics, Depakote level 120. We will consult teleneurology for dosing recommendations. 3. Parkinsonism-reported to be impulsive at times and quick to anger. 4. Lactic acidosis-resolved DVT prophylaxis-subcu Lovenox This patient was seen by Bonnie Mendez NP-C under the supervision of Dr. De Santiago.
[2020-12-04 11:00] VITALS: PULSE 73
--- NOTE | 2020-12-04 13:05 | PCM.DC ---
- Discharge Diagnoses Current Active Problems: Current Active and Chronic Problems TIA (transient ischemic attack) (Chronic) Hypertension (Chronic) History of CVA (cerebrovascular accident) (Chronic) History of intracranial hemorrhage (Chronic) Anxiety and depression (Chronic) Hypercalcemia (Chronic) Parathyroid adenoma (Chronic) CVA (cerebral vascular accident) (Chronic) Hypotension (Acute) Systemic inflammatory response syndrome (SIRS) due to infection (Acute) Lactic acidosis (Acute) Sinus tachycardia seen on cardiac cath lab radiology technologist (Acute) You will use the following diet at home:: Regular Your food should be the consistency of: Regular Your liquids should be the consistency of: Regular/Thin Discharge Activity: Return to Normal Activity Weight Bearing Status: Weight bearing as tolerated Call your doctor if you observe: Numbness or Tingling, Dizziness Allergies/Adverse Reactions: Allergies piperacillin [From Zosyn] Allergy (Verified 02/10/20 22:04) Rash tazobactam [From Zosyn] Allergy (Verified 02/10/20 22:04) Rash Medications to take at Discharge Calcium Carbonate [Calcium] 500 mg PO BID 06/23/20 Taurine [Pantera Taurine] 4,000 mg PO BID 06/23/20 Thiamine Mononitrate (Vit B1) [Vitamin B-1] 100 mg PO BID 06/23/20 Ascorbic Acid [Vitamin C] 1,000 mg PO DAILY 12/02/20 Cholecalciferol (VIT D3) [Vitamin D3] 1,000 unit PO DAILY 12/02/20 Ferrous Sulfate [Ferosul] 325 mg PO DAILY 12/02/20 Melatonin 10 mg PO QHS 12/02/20 Omeprazole 20 mg PO QHS 12/02/20 Zonisamide 200 mg PO QHS 12/02/20 Divalproex Sodium [Depakote] 1,000 mg PO TID 30 Days #90 tablet 12/04/20 Primary Care Physician: [facility],[place] [Primary Care Provider] - Please follow up with your Primary Care Physician in: 1 week Test Results: Test results from this visit will be discussed in further detail at your follow-up appointment, if applicable. Proposed Discharge Date: 12/04/20
--- NOTE | 2020-12-04 13:16 | PCM.DC.SUM ---
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 Normal calvarium. There is mild cerebral atrophy with widening of the extra-axial spaces and ventricular dilatation. There are areas of decreased attenuation within the white matter tracts of the supratentorial brain, consistent with microvascular disease changes. 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 Normal basal ganglia and thalami. Normal brainstem. Normal cerebellum. There is no intracranial hemorrhage. There are no findings of an acute ischemic infarction. Normal visualized paranasal sinuses. CT/Brain/Head without Contrast IMPRESSION: Chronic involutional changes of the brain. Stable encephalomalacia in the left temporal lobe. Cardiology Neurology Operations: None Procedures: EKG Summary of Care Provided: The patient is a 65 year old M who originally presented with weakness, lethargy, altered mental status and was diaphoretic per his fianc?e. Patient was febrile, tachycardic and tachypneic upon admission. His initial chest x-ray showed poor inspiratory effort and was concerning for infiltrate however his blood and urine cultures were negative. Patient has a history of a TBI, status epilepticus, and although he has not been diagnosed with Parkinson's disease he does display parkinsonism. Patient underwent brain CT which showed chronic changes only. Neurology was consulted and recommended checking a Depakote level which came back at 120. Neurology further recommended decreasing Depakote to 1000 mg 3 times daily and rechecking level in 1 week. Neurologist recommends outpatient transition from zonisamide to Vimpat due to what appears to be adverse side effects of zonisamide. 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) - Physical Exam Vitals/I&O's: Vital Signs Temp Pulse Resp BP Pulse Ox 98.0 F 73 18 101/79 96 12/04/20 09:15 12/04/20 11:00 12/04/20 09:15 12/04/20 09:15 12/04/20 09:15 Oxygen Delivery Method Room Air Weight: 190 lb Body Mass Index (BMI) 27.2 Finger Stick Blood Glucose 108 Intake and Output for Last 24 Hours 12/02/20 12/03/20 12/04/20 23:59 23:59 23:59 Intake Total 2049 / 2049 1725 / 1775 595 / 595 Output Total 800 / 800 840 / 1640 2550 / 2550 Balance 1250 / 1250 885 / 135 -195 / -195 General: Alert, Cooperative, - - Minimally verbal HEENT: Atraumatic, PERRLA, EOMI, Normocephalic Neck: Supple, No JVD, Negative Carotid Bruits Lungs: Clear to auscultation, Normal air movement Cardiovascular: Regular rate, Regular Rhythm, Normal S1, Normal S2, No murmurs Abdomen: Bowel Sounds Present, Soft, Non Tender Extremities: No edema, Capillary Refill Less than 3 Seconds Skin: No rashes, No breakdown Musculoskeletal: No Tenderness to Palpation of Joints or Extremities Neurological: Cranial nerves II-XII grossly intact Psych/Mental Status: Appropriate, Flat Affect Microbiology Past 72 Hours 12/02/20 09:48 Urine Catheter - Montes Urine Culture - Final Culture exhibits no growth. 12/02/20 09:10 Blood Culture (Wb) - Anticubital Left Blood Culture - Preliminary No growth in 48 hours. 12/02/20 09:20 Blood Culture (Wb) - Anticubital Right Blood Culture - Preliminary No growth in 48 hours. 12/02/20 19:15 Mucosa - Nasopharyngeal Respiratory Panel (PCR) - Final 12/02/20 10:35 Mucosa - Nose SARS-CoV-2 Antigen (Rapid) - Final Laboratory Results 12/03/20 13:27: Valproic Acid 120 H 12/04/20 05:02: WBC 7.0, RBC 3.70 L, Hgb 12.1 L, Hct 36.4 L, MCV 98.4 H, MCH 32.7 H, MCHC 33.2, RDW Std Deviation 54.1 H, RDW Coeff of Chelo 14.9 H, Plt Count 86 L, MPV 10.2, Immature Gran % (Auto) 0.400, Neut % (Auto) 56.6, Lymph % (Auto) 32.6, Wilkes % (Auto) 9.2, Eos % (Auto) 0.9, Baso % (Auto) 0.3, Absolute Neuts (auto) 3.9, Absolute Lymphs (auto) 2.27, Nucleated RBC % 0 12/04/20 05:02: Sodium 141, Potassium 3.9, Chloride 112 H, Carbon Dioxide 24.0, Anion Gap 5, BUN 23 H, Creatinine 0.77, Estim Creat Clear Calc 75.03, Est GFR (MDRD) Af Amer 129, Est GFR (MDRD) Non-Af 107, BUN/Creatinine Ratio 29.7 H, Glucose 82, Calcium 8.2 L Current Medications Acetaminophen (Acetaminophen 325 Mg Tablet) 650 mg PO Q6H PRN PRN PRN Reason: Pain Score 1-10/Temp > 100.7 F Divalproex Sodium (Divalproex Sodium 250 Mg Tablet) 1,000 mg PO TID [facility] Enoxaparin Sodium (Enoxaparin 40 Mg/0.4 Ml Syringe) 40 mg SC DAILY [facility] Last Admin: 12/04/20 08:42 Dose: 40 mg Documented by: Melatonin (Melatonin 10 Mg Tablet) 10 mg PO QHS [facility] Last Admin: 12/03/20 21:15 Dose: 10 mg Documented by: Nutritional Formula (Lactose Free) (Ensure Enlive 120 Ml Liquid) 120 ml PO 4X/DAY [facility] Last Admin: 12/04/20 08:43 Dose: Not Given Documented by: Ondansetron HCl (Ondansetron 4 Mg/2 Ml Vial) 4 mg IV Q8H PRN PRN PRN Reason: NAUSEA/VOMITING Pantoprazole Sodium (Pantoprazole Sodium 20 Mg Tablet) 20 mg PO QHS [facility] Last Admin: 12/03/20 21:15 Dose: 20 mg Documented by: Thiamine HCl ([facility] Hydrochloride 100 Mg Tablet) [facility] Last Admin: 12/04/20 08:42 Dose: 100 mg Documented by: Zonisamide (Zonisamide 100 Mg Capsule) 200 mg PO QHS [facility] Last Admin: 12/03/20 21:15 Dose: 200 mg Documented by: Discharge Diet: No Restrictions Discharge Activity: Return to Normal Activity Weight Bearing Status: Weight bearing as tolerated Call your doctor if you observe: Numbness or Tingling, Dizziness Home Medications: Medications to take at Discharge Calcium Carbonate [Calcium] 500 mg PO BID 06/23/20 Taurine [Pantera Taurine] 4,000 mg PO BID 06/23/20 Thiamine Mononitrate (Vit B1) [Vitamin B-1] 100 mg PO BID 06/23/20 Ascorbic Acid [Vitamin C] 1,000 mg PO DAILY 12/02/20 Cholecalciferol (VIT D3) [Vitamin D3] 1,000 unit PO DAILY 12/02/20 Ferrous Sulfate [Ferosul] 325 mg PO DAILY 12/02/20 Melatonin 10 mg PO QHS 12/02/20 Omeprazole 20 mg PO QHS 12/02/20 Zonisamide 200 mg PO QHS 12/02/20 Divalproex Sodium [Depakote] 1,000 mg PO TID 30 Days #90 tablet 12/04/20 Following Prescriptions Were Given to Patient: Divalproex Sodium [Depakote] 1,000 mg PO TID 30 Days #90 tablet Transmission Status: Received by [facility] Primary Care Physician: [facility],[place] [Primary Care Provider] - Please follow up with your Primary Care Physician in: 1 week Please Follow Up With: [facility],[place] - Neurology When: JOZEF for evaluation of medication recommendation Additional Instructions: Recommend Depakote level in 1 week. Disposition: Home Minutes spent on discharge:: 35 Patient Condition:: Fair Medical Necessity - Tobacco Use Smoking Status: Never smoker Tobacco Use: Non-smoker Meaningful Use Info Meaningful Use Diagnoses (Choose all that apply): None applicable <Heron De Santiago - Last Filed: 12/04/20 15:32> Discharge Date and Diagnosis - Primary Discharge Diagnosis Acute Problems: Active Problems Hypotension (Acute) Systemic inflammatory response syndrome (SIRS) due to infection (Acute) Lactic acidosis (Acute) Sinus tachycardia seen on bus driver/monitor (Acute) - Secondary Discharge Diagnosis Chronic Problems: Chronic Problems TIA (transient ischemic attack) (Chronic) Hypertension (Chronic) History of CVA (cerebrovascular accident) (Chronic) History of intracranial hemorrhage (Chronic) Anxiety and depression (Chronic) Hypercalcemia (Chronic) Parathyroid adenoma (Chronic) CVA (cerebral vascular accident) (Chronic) Hospital Course and Treatment Operations: None Procedures: EKG Summary of Care Provided: Patient seen and examined independently. Data reviewed. I agree with the above note by the nurse practitioner. The patient is a 65 year old M presents with weakness. Patient was found in his bed incontinent. Patient was febrile when he presented and concern was for systemic plantar response syndrome. Patient was started on antibiotics. Culture came back unremarkable. Patient was seen by neurology given the patient's Parkinson features. Patient does have a history of seizures and has had a physical decline since his antiepileptics were changed in June. Patient has been on zonisamide as well as Depakote. Patient did have a Depakote level that showed a slight elevated neurology recommended cutting it back to 1003 times daily. Neurology also recommended that he follow-up at the [place] for dressing the zonisamide and if that could be changed over to Vimpat which she seemed to have tolerated before. Plan is for the patient to go home in stable condition. Patient will still need neurology follow-up at the [place]. [] - Physical Exam Vitals/I&O's: Vital Signs Temp Pulse Resp BP Pulse Ox 36.7 C 93 18 101/79 96 12/04/20 13:48 12/04/20 13:48 12/04/20 13:48 12/04/20 13:48 12/04/20 13:48 Oxygen Delivery Method Room Air Weight: 86.183 kg Body Mass Index (BMI) 27.2 Finger Stick Blood Glucose 108 Intake and Output for Last 24 Hours 12/02/20 12/03/20 12/04/20 23:59 23:59 23:59 Intake Total 0 / 0 1725 / 1775 595 / 595 Output Total 800 / 800 840 / 1640 2550 / 2550 Balance 1250 / 1250 885 / 135 -1956 / -1954 General: Alert, Cooperative, - HEENT: Atraumatic, Normocephalic Neck: No Nodes, Trachea Midline Lungs: Clear to auscultation, Normal air movement, No rhonchi, No wheeze Cardiovascular: Regular rate, Regular Rhythm, Normal S1, Normal S2 Abdomen: Bowel Sounds Present, Soft, Non Tender, Non-Distended Extremities: No edema, No Calf Tenderness Microbiology Past 72 Hours 12/02/20 09:48 Urine Catheter - Montes Urine Culture - Final Culture exhibits no growth. 12/02/20 09:10 Blood Culture (Wb) - Anticubital Left Blood Culture - Preliminary No growth in 48 hours. 12/02/20 09:20 Blood Culture (Wb) - Anticubital Right Blood Culture - Preliminary No growth in 48 hours. 12/02/20 19:15 Mucosa - Nasopharyngeal Respiratory Panel (PCR) - Final 12/02/20 10:35 Mucosa - Nose SARS-CoV-2 Antigen (Rapid) - Final Laboratory Results 12/04/20 05:02: WBC 7.0, RBC 3.70 L, Hgb 12.1 L, Hct 36.4 L, MCV 98.4 H, MCH 32.7 H, MCHC 33.2, RDW Std Deviation 54.1 H, RDW Coeff of Chelo 14.9 H, Plt Count 86 L, MPV 10.2, Immature Gran % (Auto) 0.400, Neut % (Auto) 56.6, Lymph % (Auto) 32.6, Wilkes % (Auto) 9.2, Eos % (Auto) 0.9, Baso % (Auto) 0.3, Absolute Neuts (auto) 3.9, Absolute Lymphs (auto) 2.27, Nucleated RBC % 0 12/04/20 05:02: Sodium 141, Potassium 3.9, Chloride 112 H, Carbon Dioxide 24.0, Anion Gap 5, BUN 23 H, Creatinine 0.77, Estim Creat Clear Calc 75.03, Est GFR (MDRD) Af Amer 129, Est GFR (MDRD) Non-Af 107, BUN/Creatinine Ratio 29.7 H, Glucose 82, Calcium 8.2 L Discharge Diet: No Restrictions Discharge Activity: May Not Drive Weight Bearing Status: Weight bearing as tolerated Call your doctor if you observe: Numbness or Tingling, Dizziness Disposition: Home Minutes spent on discharge:: 35 Patient Condition:: Fair Medical Necessity - Tobacco Use Smoking Status: Never smoker Tobacco Use: Non-smoker Meaningful Use Info Meaningful Use Diagnoses (Choose all that apply): None applicable Inpatient E&M: 25214 Disch Hosp
--- NOTE | 2020-12-04 13:32 | PHA.DC.MR ---
Pharmacy Service has performed discharge medication reconciliation for this patient. The patient's discharge medication list was reviewed for discrepancies and discrepancies were resolved. Home Medications Calcium Carbonate [Calcium] 500 mg PO BID 06/23/20 Taurine [Pantera Taurine] 4,000 mg PO BID 06/23/20 Thiamine Mononitrate (Vit B1) [Vitamin B-1] 100 mg PO BID 06/23/20 Ascorbic Acid [Vitamin C] 1,000 mg PO DAILY 12/02/20 Cholecalciferol (VIT D3) [Vitamin D3] 1,000 unit PO DAILY 12/02/20 Ferrous Sulfate [Ferosul] 325 mg PO DAILY 12/02/20 Melatonin 10 mg PO QHS 12/02/20 Omeprazole 20 mg PO QHS 12/02/20 Zonisamide 200 mg PO QHS 12/02/20 Divalproex Sodium [Depakote] 1,000 mg PO TID 30 Days #90 tablet 12/04/20
--- NOTE | 2020-12-04 13:36 | CASEMGMT ---
D/C summary/instructions faxed to [facility] at this time. Call to [facility] at [facility] at this time to update them on pt discharge at this time and message left with him to call this RN CM back with any questions. Pt's sig other states no concerns with pt going home with her at this time. SStnikita NERI CM
[2020-12-04 13:48] VITALS: BP 101/79; PULSE 93; RESP 18; TEMP 36.7; O2SAT 96
== END 2020-12-04 14:46 | disposition home or self-care (01) | DRG 864 ==
LOC: ED 10:50 → PCU 12-03 08:20
PROVIDERS: Nurse Practitioner Family; Emergency Provider Emergency Medicine
DX: R50.9 Fever, unspecified (principal); R65.10 Systemic inflammatory response syndrome (SIRS) of non-infectious origin without acute organ dysfunction; E87.2 Acidosis; G40.909 Epilepsy, unspecified, not intractable, without status epilepticus; I10 Essential (primary) hypertension; F32.9 Major depressive disorder, single episode, unspecified; F41.9 Anxiety disorder, unspecified; D35.1 Benign neoplasm of parathyroid gland; E83.52 Hypercalcemia; E87.6 Hypokalemia; R45.87 Impulsiveness; R32 Unspecified urinary incontinence; Z66 Do not resuscitate; Z20.822 Contact with and (suspected) exposure to COVID-19; Z86.73 Personal history of transient ischemic attack (TIA), and cerebral infarction without residual deficits; Z79.899 Other long term (current) drug therapy
CPT/HCPCS: 36415; 70450; 71045; 80048; 80053; 80164; 81001; 83605; 85025; 85610; 85730; 87040; 87086; 87426; 87633; 93005; 97110; 97162; 97166; 97802; 99285; J7030; J7040; J7050; A4216; J0696

== ENCOUNTER 2021-01-22 00:09 | Emergency (ER) | payer MEDICARE, OTHER, SELFPAY ==
[2020-12-02 13:30] VITALS: BMI 27.2
[2021-01-22 00:10] VITALS: BP 141/92; PULSE 87; RESP 16; TEMP 36.1; O2SAT 96; BMI 25.2
--- NOTE | 2021-01-22 00:18 | CT_ITS ---
STUDY: CT CERVICAL SPINE WITHOUT CONTRAST REASON FOR EXAM: Male, 65 years old. trauma RADIATION DOSAGE (If Supplied By Facility): CTDIvol = ( 19.27 ) mGy, DLP = ( 398.14 ) mGycm TECHNIQUE: High resolution transaxial imaging was performed without contrast material. Sagittal and coronal images were reconstructed. Individualized dose optimization techniques were used for this CT. COMPARISON: None FINDINGS: Normal craniovertebral junction. Normal anterior atlantoaxial articulation. Normal odontoid process. Normal cervical lordosis. No loss of vertebral body height C6 and C7 which is old. C2-3: Normal endplates. Normal disc height and morphology. Normal central canal and intervertebral neuroforamina. C3-4: Normal endplates. Normal disc height and morphology. Normal central canal. Neural foramina narrowing on the right. C4-5: Normal endplates. Normal disc height and morphology. Normal central canal. Neural foramina narrowing on the left. Normal foraminal narrowing on the right. C5-6: Disc space narrowing with small marginal osteophytes. Posterior osteophyte produces mild spinal stenosis. Neural foramina narrowing bilaterally. C6-7: Disc space narrowing with small marginal osteophytes. Posterior osteophyte produces mild spinal stenosis. Neural foraminal narrowing bilaterally. C7-T1: Normal endplates. Normal disc height and morphology. Normal central canal. Mild neural foraminal narrowing on the left. Normal visualized soft tissue structures. Carotid calcifications.. CT/Spine Cervical without Contras IMPRESSION: Multilevel degenerative changes of the cervical spine, no fracture identified. Electronically Signed: Sherman Valle MD at 2:00 EDT , Service support ,
--- NOTE | 2021-01-22 00:18 | CT_ITS ---
STUDY: CT BRAIN WITHOUT CONTRAST REASON FOR EXAM: Male, 65 years old. trauma RADIATION DOSAGE (If Supplied By Facility): CTDIvol = ( 44.99 ) mGy, DLP = ( 880.47 ) mGycm TECHNIQUE: Transaxial CT imaging of the brain was performed without administration of intravenous contrast material. Individualized dose optimization techniques were used for this CT. COMPARISON: December 03, 2020. FINDINGS: Normal soft tissue structures. Normal calvarium. There is mild to moderate cerebral atrophy with widening of the extra-axial spaces and ventricular dilatation. There are areas of decreased attenuation within the white matter tracts of the supratentorial brain, consistent with microvascular disease changes. Normal basal ganglia and thalami. Normal brainstem. Normal cerebellum. Encephalomalacia anterior left temporal lobe compatible with an old infarction unchanged. There is no intracranial hemorrhage. There are no findings of an acute ischemic infarction. Normal visualized paranasal sinuses. CT/Brain/Head without Contrast IMPRESSION: Stable head CT, no acute intracranial abnormality. Electronically Signed: Sherman Valle MD at 1:52 EDT , Service support ,
[2021-01-22 00:38] LABS: Absolute Lymphocyte Count 1.82 X10^3/uL (0.83-4.51); Absolute Neutrophil Count 4.6 X10^3/uL (2.0-7.7); Basophil# 0.01 X10^3/uL; Basophil% 0.1 % (0-1); Eosinophil# 0.01 X10^3/uL; Eosinophils% 0.1 % (0-5); Hematocrit 45.1 % (40-54); Hemoglobin 14.9 g/dL (13.0-16.5); Lymphocyte # 1.82 X10^3/ul (0.83-4.51); Lymphocyte % 24.6 % (19-41); Mean Corpuscular Hgb 33.5 pg (27.0-32.0); Mean Corpuscular Volume 101.3 fL (80-94); Mean Platelet Vol. 10.3 fl (6.2-12.0); Monocyte# 0.97 X10^3/uL; Monocyte% 13.1 % (0-10); NRBC Flagged by Analyzer 0 % (0-5); Neutrophil # 4.58 X10^3/uL (2.7-7.7); Neutrophil % 61.8 % (47-70); Platelet Count 105 K/mm3 (150-450); RBC Distribution Width CV 12.9 % (11.6-14.6); RBC Distribution Width SD 48.5 fl (35.1-43.9); Red Blood Count 4.45 M/mm3 (4.6-6.2); White Blood Count 7.4 K/mm3 (4.4-11.0)
--- NOTE | 2021-01-22 00:52 | EX.ED.DYSGE1 ---
HPI History of Present Illness Chief Complaint: Fall Informant: patient and spouse/S.O. Limited: dementia Onset/Context/Timing Onset: Today Context: Sudden Onset Current Severity: Moderate Maximum Severity: Moderate Narrative Narrative: The patient presents to the emergency department after a fall. Patient has a rather complex medical history. He has history of prior TIA, prior stroke, intracranial hemorrhage, and TBI. The patient recently had adjustments to his seizure medications. He has been having a rather precipitous decline of his mental capacity since his seizure medications have been changed. He actually just got discharged from the [place] today. He was in for almost 10 days. There was concerned because he had difficulty swallowing. The patient is basically nonverbal at baseline. They had made attempts to set up for outpatient medication change. They were just discharged this evening. His is taking him home. She states that she got out of the car, went to get the keys, turned around, the patient had fallen. He did strike his head but had no loss of consciousness. Prior similar symptoms: Yes Recent Illness/Hospitalization: Yes [facility] Medical History Exposure to Agent [place] Inguinal hernia Seizures TBI (traumatic brain injury) Home Medications calcium carbonate 500 mg PO BID 06/23/20 [History Last Taken 12/01/20] taurine 4,000 mg PO BID 06/23/20 [History Last Taken 12/01/20] thiamine mononitrate (vit B1) 100 mg PO BID 06/23/20 [History Last Taken 12/01/20] ascorbic acid (vitamin C) 1,000 mg PO DAILY 12/02/20 [History Last Taken 12/01/20] cholecalciferol (vitamin D3) 1,000 unit PO DAILY 12/02/20 [History Last Taken 12/01/20] ferrous sulfate 325 mg PO DAILY 12/02/20 [History Last Taken 12/01/20] melatonin 10 mg PO QHS 12/02/20 [History Last Taken 12/01/20] omeprazole 20 mg PO QHS 12/02/20 [History Last Taken 12/01/20] zonisamide 200 mg PO QHS 12/02/20 [History Last Taken 12/01/20] Allergy/AdvReac Type Severity Reaction Status Date / Time piperacillin [From Zosyn] Allergy Rash Verified 02/10/20 22:04 tazobactam [From Zosyn] Allergy Rash Verified 02/10/20 22:04 no significant family history Surgical History H/O parathyroidectomy Social History Smoking Status: Never smoker ROS ROS ED Review of Systems ROS Unobtainable: due to mental status EXAM Physical Exam Const Vital Signs: 01/22/21 00:10 01/22/21 00:14 Temperature 97 F L Temperature Source Temporal Pulse Rate 87 Respiratory Rate 16 Respiratory Effort Normal Non-Labored Respiratory Depth Normal Respiratory Pattern Normal Blood Pressure 141/92 H Blood Pressure Mean 108 Pulse Ox 96 Oxygen Delivery Method Room Air Positive well nourished and well developed General Appearance ED: well developed HEENT Reports normocephalic, head/scalp atraumatic and moist mucous membranes HEENT Narrative: Contusion of the posterior occipital area trauma Eyes PERRL and EOMs intact bilaterally Neck no lymphadenopathy and supple General: Negative for tenderness Chest Wall inspection of chest normal Resp normal respiratory effort and clear to auscultation bilaterally Cardio regular rate, regular rhythm and no murmurs GI normal to inspection, nondistended, normoactive bowel sounds Palpation: Negative for tender, guarding or rebound tenderness present Back/Spine no CVA tenderness Cervical Spine: Negative for cervical spine tenderness Thoracic Spine / Upper Back: Negative for thoracic spinal tenderness Extremity normal to inspection General Extremety ED: Negative for tenderness Neuro oriented x3 and CN's II-XII intact bilaterally Neuro Narrative: No focal deficits appreciated. Sensorium / Orientation: alert Motor Exam: general weakness Psych mental status grossly normal Skin no rashes or lesions noted, no wounds and skin turgor normal MDM MDM MDM Narrative Medical decision making narrative: The patient presents after mechanical fall with head injury. He had no loss of consciousness. Per the , the patient is at his baseline. However, given his medical history I did obtain metabolic work-up and CTs. Screening labs were obtained were unremarkable. His Depakote level is therapeutic without evidence of toxicity. Electrolyte panel was also unremarkable. Noncontrast head CT shows no evidence of new injury. There is encephalomalacia consistent with history of prior strokes. CT of the C-spine was also obtained. This was unremarkable for acute fracture. I did have long conversation with the . She does feel like she can use more resources at home. I have left a voicemail with social work to see if there is any arrangements that can be made in [facility] as the patient's states [facility]. At this point however, I do feel that he is safe for discharge and his wants to take him home. Impression 1. Mechanical fall Lab Data Attestation: I reviewed the patient's lab results. Labs: Laboratory Results - last 24 hr 01/22/21 01/22/21 01/22/21 00:30 00:30 00:30 WBC 7.4 RBC 4.45 L Hgb 14.9 Hct 45.1 MCV 101.3 H MCH 33.5 H MCHC 33.0 RDW Std Deviation 48.5 H RDW Coeff of [place] 12.9 Plt Count 105 L MPV 10.3 Immature Gran % (Auto) 0.300 Neut % (Auto) 61.8 Lymph % (Auto) 24.6 Price % (Auto) 13.1 H Eos % (Auto) 0.1 Baso % (Auto) 0.1 Absolute Neuts (auto) 4.6 Absolute Lymphs (auto) 1.82 Nucleated RBC % 0 Sodium 142 Potassium 4.1 Chloride 109 H Carbon Dioxide 29.0 Anion Gap 4 L BUN 31 H Creatinine 1.21 Estim Creat Clear Calc 62.01 Est GFR (MDRD) Af Amer 77 Est GFR (MDRD) Non-Af 64 BUN/Creatinine Ratio 25.6 H Glucose 94 Calcium 8.8 Magnesium 2.2 Total Bilirubin 0.60 AST 14 L ALT 15 L Alkaline Phosphatase 105 Total Protein 6.7 Albumin 2.8 L Globulin 3.9 Albumin/Globulin Ratio 0.7 L Valproic Acid 90 Radiography Diagnostic Testing: Radiology Impression Brain CT 01/22/21 00:18 IMPRESSION: Stable head CT, no acute intracranial abnormality. Electronically Signed: Sherman Valle MD at 1:52 EDT , Service support , Cervical Spine CT 01/22/21 00:18 IMPRESSION: Multilevel degenerative changes of the cervical spine, no fracture identified. Electronically Signed: Sherman Valle MD at 2:00 EDT , Service support , Discharge Plan Triage Chief Complaint: Fall ED Provider: Paul Gonzalez Dx/Rx/DC Orders Instructions: ED Mechanical Fall Prescriptions: No Action thiamine mononitrate (vit B1) 100 MG tablet 100 mg PO BID RF: 0 calcium carbonate 500 MG tablet 500 mg PO BID RF: 0 taurine 1,000 MG capsule 4,000 mg PO BID RF: 0 ascorbic acid (vitamin C) 1,000 MG tablet 1,000 mg PO DAILY RF: 0 zonisamide 100 MG capsule 200 mg PO QHS RF: 0 ferrous sulfate 325 MG tablet 325 mg PO DAILY RF: 0 cholecalciferol (vitamin D3) 1,000 UNIT tablet 1,000 unit PO DAILY RF: 0 omeprazole 20 MG tablet,delayed release (DR/EC) 20 mg PO QHS RF: 0 melatonin 10 MG tablet 10 mg PO QHS RF: 0 [facility] Care Provider: [facility] Referrals: [facility] [Primary Care Provider] -
[2021-01-22 00:59] LABS: ALB/GLOB Ratio 0.7 RATIO (0.9-2.4); AST(SGOT) 14 U/L (15-37); Alanine Aminotransfer ALT/SGPT 15 U/L (16-61); Albumin, Serum 2.8 g/dL (3.2-5.0); Alkaline Phosphatase 105 U/L (45-117); Anion Gap 4 (5-15); BUN 31 mg/dL (7-18); BUN/Creat Ratio 25.6 RATIO (10-20); Calcium,Total 8.8 mg/dL (8.5-10.1); Chloride 109 mmol/L (98-107); Creatinine, Serum 1.21 mg/dL (0.70-1.30); EST Glomerular Filtration Rate 64 mL/min (>60); Est Glom Filt Rate - Afr Amer 77 mL/min (>60); Estimated Creatinine Clearance 62.01 ml/min; Globulin 3.9 g/dL (2.2-4.2); Glucose 94 mg/dL (74-106); Magnesium 2.2 mg/dL (1.6-2.6); Potassium 4.1 mmol/L (3.5-5.1); Protein, Total 6.7 g/dL (6.4-8.2); Sodium Level 142 mmol/L (136-145); Valproic Acid (Depakene) Level 90 ug/mL (50-100)
[2021-01-22 02:38] VITALS: BP 141/92; PULSE 78; RESP 18; O2SAT 98
--- NOTE | 2021-01-22 02:52 | NURSING ---
PT DRESSED WITH HELP OF AND THIS RN. PT TRANSFERRED TO WHEELCHAIR WITH HELP OF 2 RNS. PT DID A GOOD PORTION OF THE WORK HIMSELF. HE WAS TRANSFERRED INTO PASSENGER SIDE OF CAR WITHOUT CHALLENGES. PT WAS VERY HAPPY WITH THE CARE HE HAS RECEIVED AT [facility], I THANKED HER FOR THE POSITIVE COMMENTS.
--- NOTE | 2021-01-23 12:39 | CM.ED ---
SOCIAL WORK Referral Source: Dr. Gonzalez Reason for Referral: Resources Received voicemail from Dr. Gonzalez to follow up with patient's regarding resources for patient. Call to patient's significant other, Jose Amalia. Introduced role and reason for call. Jose thanking this worker for phone call and reports [facility]. Jose states anticipates transfer to [facility]. Jose inquiring about Rehab Unit here at [facility]. Education provided. Discussed future needs such as DME, long-term care. Much emotional support and active listening provided. Jose provided with this worker's contact information for any further needs. Richard Vance, BINDERY MACHINE SETTER, ANALYTICAL CHEMIST
== END 2021-01-22 02:53 | disposition home or self-care (01) ==
PROVIDERS: Emergency Provider Emergency Medicine
DX: S00.03XA Contusion of scalp, initial encounter (principal); W18.30XA Fall on same level, unspecified, initial encounter; Y93.9 Activity, unspecified; Y92.9 Unspecified place or not applicable; Y99.9 Unspecified external cause status; G40.909 Epilepsy, unspecified, not intractable, without status epilepticus; F03.90 Unspecified dementia, unspecified severity, without behavioral disturbance, psychotic disturbance, mood disturbance, and anxiety; Z86.73 Personal history of transient ischemic attack (TIA), and cerebral infarction without residual deficits
CPT/HCPCS: 70450; 72125; 80053; 80164; 83735; 85025; 96360; 96361; 99284; J7040; A4216

== ENCOUNTER → 2022-09-22 | Outpatient (REF) | payer MEDICARE, MEDICAID, SELFPAY ==
[2022-09-22 10:00] LABS: Absolute Lymphocyte Count 2.43 X10^3/uL (0.83-4.51); Absolute Neutrophil Count 6.7 X10^3/uL (2.0-7.7); Basophil# 0.03 X10^3/uL; Basophil% 0.3 % (0-1); Eosinophil# 0.12 X10^3/uL; Eosinophils% 1.2 % (0-5); Hematocrit 41.9 % (40-54); Hemoglobin 13.8 g/dL (13.0-16.5); Lymphocyte # 2.43 X10^3/ul (0.83-4.51); Lymphocyte % 23.8 % (19-41); Mean Corp Hgb Conc 32.9 g/dL (32-36); Mean Corpuscular Hgb 30.1 pg (27.0-32.0); Mean Corpuscular Volume 91.5 fL (80-94); Mean Platelet Vol. 10.7 fl (6.2-12.0); Monocyte% 8.8 % (0-10); NRBC Flagged by Analyzer 0 % (0-5); Neutrophil # 6.69 X10^3/uL (2.7-7.7); Neutrophil % 65.3 % (47-70); Platelet Count 230 K/mm3 (150-450); RBC Distribution Width SD 43.6 fl (35.1-43.9); Red Blood Count 4.58 M/mm3 (4.6-6.2); White Blood Count 10.2 K/mm3 (4.4-11.0)
[2022-09-22 10:02] LABS: Anion Gap 9 (5-15); BUN 13 mg/dL (7-18); Calcium,Total 8.4 mg/dL (8.5-10.1); Chloride 104 mmol/L (98-107); Creatinine, Serum 0.81 mg/dL (0.70-1.30); EST Glomerular Filtration Rate 100 mL/min (>60); Est Glom Filt Rate - Afr Amer 121 mL/min (>60); Glucose 83 mg/dL (74-106); Potassium 3.1 mmol/L (3.5-5.1); Sodium Level 139 mmol/L (136-145)
== END ==
LOC: OLS.SW 05:00
PROVIDERS: Visit Provider Internal Medicine
DX: F03.90 Unspecified dementia, unspecified severity, without behavioral disturbance, psychotic disturbance, mood disturbance, and anxiety (principal); I10 Essential (primary) hypertension; Z79.899 Other long term (current) drug therapy
CPT/HCPCS: 36415; 80048; 85025; 86140

== ENCOUNTER → 2022-09-23 | Outpatient (REF) | payer MEDICARE, MEDICAID, SELFPAY ==
[2022-09-23 09:22] LABS: Prealbumin 10.2 mg/dL (20.0-40.0)
[2022-10-01 21:38] LABS: Trileptal-Oxcarbazepine < 1 ug/mL (10-35)
== END ==
LOC: OLS.SW 05:00
PROVIDERS: Visit Provider Internal Medicine
DX: L08.9 Local infection of the skin and subcutaneous tissue, unspecified (principal); T14.8XXA Other injury of unspecified body region, initial encounter; Z79.899 Other long term (current) drug therapy
CPT/HCPCS: 36415; 82542; 84134

== ENCOUNTER 2022-09-27 20:13 | Inpatient (IN) | payer MEDICARE, MEDICAID, SELFPAY ==
[2022-09-27 20:14] VITALS: BP 95/81; PULSE 121; RESP 24; TEMP 38.8; O2SAT 94; BMI 28.4
[2022-09-27 20:16] VITALS: BP 95/81; PULSE 121; RESP 24; TEMP 38.8; O2SAT 95
[2022-09-27 20:18] VITALS: BP 95/81; PULSE 121; RESP 24; O2SAT 95
--- NOTE | 2022-09-27 20:37 | EKG12_ITS ---
Test Reason : GEN ILL Blood Pressure : / mmHG Vent. Rate : 113 BPM Atrial Rate : 113 BPM P-R Int : 178 ms QRS Dur : 082 ms QT Int : 302 ms P-R-T Axes : 051 -07 051 degrees QTc Int : 414 ms Sinus tachycardia Inferior infarct , age undetermined Abnormal ECG Confirmed by LEI GONZALEZ, FEI ([id number]), editor city [place]IO [place]STRO ([id number]) on 09/28/2022 2:02:10 PM Referred By: Confirmed By:FEI ODOM MD
--- NOTE | 2022-09-27 20:42 | EX.ED.DYSGE1 ---
HPI History of Present Illness Chief Complaint: General Illness Detail of Chief Complaint: Fever sent in from a custodial. Patient does not speak. Narrative Narrative: 67-year-old male from [facility]. Sent in today due to fever and low blood pressure. Reportedly fell about a week ago. Patient reportedly does not communicate or speak. He has a history of a prior intracranial bleed and traumatic brain injury. I am unable to get any history from the patient at all. He does not follow commands or speak. Recent Illness/Hospitalization: No [facility] Medical History Exposure to Agent [place] Inguinal hernia Seizures TBI (traumatic brain injury) Home Medications calcium carbonate 500 mg calcium (1,250 mg) tablet 500 mg PO DAILY supplement 06/23/20 [History Last Taken 12/01/20] ascorbic acid (vitamin C) 1,000 mg tablet 1,000 mg PO DAILY supplement 12/02/20 [History Last Taken 12/01/20] omeprazole 20 mg tablet,delayed release 20 mg PO QHS reflux 12/02/20 [History Last Taken 12/01/20] acetaminophen 650 mg rectal suppository 650 mg FL Q4H PRN Fever Or Pain 09/27/22 [History Last Taken Unknown] acetaminophen 650 mg tablet 650 mg PO Q4H PRN Fever Or Pain 09/27/22 [History Last Taken Unknown] aspirin 81 mg chewable tablet 81 mg PO DAILY 09/27/22 [History Last Taken Unknown] clobazam 10 mg tablet 10 mg PO QHS 09/27/22 [History Last Taken Unknown] clonidine 0.1 mg/24 hr weekly transdermal patch 1 patch transdermal QWEEK 09/27/22 [History Last Taken Unknown] diazepam 5 mg tablet 2.5 mg PO BID anxiety 09/27/22 [History Last Taken Unknown] lacosamide 200 mg tablet 200 mg PO BID 09/27/22 [History Last Taken Unknown] lacosamide 50 mg tablet 50 mg PO BID 09/27/22 [History Last Taken Unknown] melatonin 3 mg tablet 9 mg PO QHS 09/27/22 [History Last Taken Unknown] multivitamin,tx-minerals 1 tab PO DAILY 09/27/22 [History Last Taken Unknown] oxcarbazepine 150 mg tablet 150 mg PO QHS seizure 09/27/22 [History Last Taken Unknown] potassium chloride 20 mEq tablet,extended release(part/cryst) 20 meq PO DAILY 09/27/22 [History Last Taken Unknown] sennosides 8.6 mg tablet (senna) 8.6 mg PO DAILY 09/27/22 [History Last Taken Unknown] sulfamethoxazole 800 mg-trimethoprim 160 mg tablet (Bactrim DS) 1 tab PO BID 09/27/22 [History Last Taken Unknown] vitamin B complex 1 cap PO DAILY 09/27/22 [History Last Taken Unknown] Allergy/AdvReac Type Severity Reaction Status Date / Time adhesive tape Allergy NEEDS Verified 09/27/22 20:18 FOLLOW-UP cefepime Allergy NEEDS Verified 09/27/22 20:18 FOLLOW-UP haloperidol Allergy NEEDS Verified 09/27/22 20:18 FOLLOW-UP piperacillin [From Zosyn] Allergy Rash Verified 02/10/20 22:04 quetiapine Allergy NEEDS Verified 09/27/22 20:18 FOLLOW-UP tazobactam [From Zosyn] Allergy Rash Verified 02/10/20 22:04 Surgical History H/O parathyroidectomy Social History Smoking Status: Never smoker ROS ROS ED ROS Narrative Unable to get any history from the patient. He does not speak or follow any commands. Review of Systems ROS Unobtainable: due to mental status EXAM Physical Exam Narrative Exam Narrative: 67-year-old male. Vital signs show tachycardia 121. Hypotension with a blood pressure 95/81 and febrile at 101.9. His pulse ox is 94% on room air no hypoxia. As I walk into the room there are 3 nurses present. Patient has his eyes closed. He does not speak or follow any commands. H EENT exam unremarkable atraumatic. I cannot get an open his eyes. He does have moist mucous membranes. But I had to open his mouth using a tongue blade then he bit down on the tongue blade. Neck nontender. No meningismus. No lymphadenopathy. Lungs clear to auscultation bilaterally. Shallow respirations. Heart tachycardic rate of 120 no murmur. Chest wall nontender. Abdomen soft nontender. External exam unremarkable. Extremities are nontender no deformity. Back nontender. His right buttock cheek and neck crease there is a decubitus ulcer that goes into the subcu tissue. No pus. No surrounding cellulitis. Neurologically he is awake. His eyes are closed. He does not answer any questions or speak. He does not follow any commands. Const Vital Signs: 09/27/22 20:14 09/27/22 20:18 09/27/22 20:16 Temperature 101.9 F H 101.9 F H Temperature Source Axillary Axillary Pulse Rate 121 H 121 H 121 H Respiratory Rate 24 H 24 H 24 H Blood Pressure 95/81 H 95/81 H 95/81 H Blood Pressure Mean 85 85 85 Pulse Ox 94 95 95 Oxygen Delivery Method Room Air Room Air Room Air Fraction of Inspired Oxygen (FIO2) 09/27/22 20:52 09/27/22 21:16 09/27/22 21:16 Temperature 99.1 F Temperature Source Temporal Pulse Rate 108 H 110 H Respiratory Rate 28 H Blood Pressure 122/69 H Blood Pressure Mean 86 Pulse Ox 93 Oxygen Delivery Method Room Air Room Air Fraction of Inspired Oxygen (FIO2) 97 Positive well nourished and well developed; Negative for obese, cachectic, contractures or unkempt General Appearance ED: well developed and NAD; Negative for unkempt, cachectic, contractures, cyanotic or diaphoretic Nutritional Appearance: Negative for cachectic or obese HEENT Reports moist mucous membranes Negative for trauma Eyes Eyes Narrative: Is closed. Neck no lymphadenopathy, supple and no JVD General: Negative for tenderness Lymph Lymphatic: Negative for other Chest Wall inspection of chest normal and palpation of chest normal Resp normal respiratory effort and clear to auscultation bilaterally Effort and Inspection: Negative for retractions Auscultation: Negative for rales, rhonchi or wheezes Cardio regular rhythm, S1 normal heart sound, S2 normal heart sound and no murmurs; Negative for regular rate Rate: tachycardic GI normal to inspection, nondistended, normoactive bowel sounds, non-tender, non-distended and no masses Inspection: Negative for abdominal distention Auscultation: normoactive bowel sounds Palpation: soft; Negative for tender or guarding Back/Spine no CVA tenderness Back/Spine Narrative: Right buttock near the cleft medially he has a decubitus ulcer about the size of a half dollar that goes into the subcu tissue. No pus or cellulitis. General Back: Negative for CVA tenderness Cervical Spine: Negative for cervical spine tenderness Thoracic Spine / Upper Back: Negative for thoracic spinal tenderness Lumbar Spine / Lower Back: Negative for lumbar spinal tenderness Extremity normal to inspection General Extremety ED: Negative for edema or tenderness General Extremity: Negative for edema Neuro No oriented x3 Neuro Narrative: Patient's eyes are closed. He does not follow commands. He is not speaking. He does not move his extremities command Psych Appearance: Negative for unkempt Mood & Affect: Negative for depressed, anxious or tearful Skin no rashes or lesions noted and No no wounds Skin Narrative: Right buttock decubitus ulcer into the subcu tissue. Rashes: No rashes noted Trauma: Negative for abrasion Wounds: wounds noted Sepsis Attestation Sepsis Alert: Yes Sepsis Attestation: Agree w/Sepsis Date exam was performed: 09/27/22 Time exam was performed: 20:40 Possible Source of Sepsis: Pulmonary, Genitourinary, Skin/soft tissue and Wound Fluid Resuscitation Fluid resuscitation indicated?: Yes MDM MDM MDM Narrative Medical decision making narrative: 67-year-old male does not speak or communicate. From a custodial. Has a fever and hypotensive with a systolic blood pressure of 95. Will be placed in the sepsis protocol. Treated with IV fluids times a liter he may need additional fluids. He had Tylenol about an hour and a half ago for the alf facility. Screening labs, chest x-ray EKG cultures and urinalysis will be obtained. Repeat exam patient is much improved. He is received almost a liter of normal saline his current pressure is 122/69. His heart rates decreased to about 105. His temperature is down to 99.1. He does open his eyes now he actually said hello to me. His fianc?e and power of furniture servicer is actually in the room. She is a nurse. She knows his history well. He is DNR [facility] arrest. She was concerned at the [facility] care facility he was becoming septic. He had been started on Bactrim yesterday. He does have an anaphylactic allergy to Zosyn. He will be started on vancomycin. I will speak to the hospitalist about admission. Patient is being treated for sepsis. This may be from his decubitus ulcer on his right buttock. It may be from another source. To be treated with IV vancomycin. I will discuss with the hospitalist if he wants additional antibiotics. Lab Data Attestation: I reviewed the patient's lab results. Lab results narrative: CBC shows an elevated white count 13.2. H&H of 13.2 and 39. Platelets 314. PT, INR and PTT are unremarkable. Electrolytes show a gap of 7. BUN of 17 creatinine of 1. Glucose 130. Liver enzymes unremarkable. Urinalysis shows positive nitrates 0-5 white cells and 5-10 red cells with 2+ bacteria. Culture sent. As were blood cultures. Lactic acid 2.5 Rapid COVID-negative. Influenza negative. Labs: Laboratory Results - last 24 hr 09/27/22 09/27/22 09/27/22 20:35 20:35 20:35 WBC 13.2 H RBC 4.47 L Hgb 13.2 Hct 39.9 L MCV 89.3 MCH 29.5 MCHC 33.1 RDW Std Deviation 42.1 RDW Coeff of [place] 12.8 Plt Count 314 MPV 9.7 Immature Gran % (Auto) 0.500 Neut % (Auto) 83.9 H Lymph % (Auto) 11.1 L [place] % (Auto) 4.2 Eos % (Auto) 0.1 Baso % (Auto) 0.2 Absolute Neuts (auto) 11.1 H Absolute Lymphs (auto) 1.47 Nucleated RBC % 0 PT 14.1 INR 1.1 APTT 30.3 Sodium 140 Potassium 3.9 Chloride 109 H Carbon Dioxide 24.0 Anion Gap 7 BUN 17 Creatinine 1.04 Estim Creat Clear Calc 70.19 Est GFR (MDRD) Af Amer 91 Est GFR (MDRD) Non-Af 75 BUN/Creatinine Ratio 16.3 Glucose 130 H Lactic Acid Calcium 8.0 L Total Bilirubin 0.30 AST 19 ALT 37 Alkaline Phosphatase 72 Total Protein 6.0 L Albumin 2.2 L Globulin 3.8 Albumin/Globulin Ratio 0.6 L Urine Color Urine Clarity Urine pH Ur Specific [place] Urine Protein Urine Glucose (UA) Urine Ketones Urine Occult Blood Urine Nitrite Urine Bilirubin Urine Urobilinogen Ur Leukocyte Esterase Urine RBC Urine WBC Ur Squamous Epith Cells Urine Bacteria Urine Mucus 09/27/22 09/27/22 20:35 20:35 WBC RBC Hgb Hct MCV MCH MCHC RDW Std Deviation RDW Coeff of [place] Plt Count MPV Immature Gran % (Auto) Neut % (Auto) Lymph % (Auto) [place] % (Auto) Eos % (Auto) Baso % (Auto) Absolute Neuts (auto) Absolute Lymphs (auto) Nucleated RBC % PT INR APTT Sodium Potassium Chloride Carbon Dioxide Anion Gap BUN Creatinine Estim Creat Clear Calc Est GFR (MDRD) Af Amer Est GFR (MDRD) Non-Af BUN/Creatinine Ratio Glucose Lactic Acid 2.5 H* Calcium Total Bilirubin AST ALT Alkaline Phosphatase Total Protein Albumin Globulin Albumin/Globulin Ratio Urine Color Yellow Urine Clarity Clear Urine pH 7.0 Ur Specific [place] 1.015 Urine Protein 15 H Urine Glucose (UA) Normal Urine Ketones 5 H Urine Occult Blood 25 H Urine Nitrite Positive H Urine Bilirubin Negative Urine Urobilinogen Normal Ur Leukocyte Esterase 100 H Urine RBC 5-10 SEEN Urine WBC 0-5 SEEN Ur Squamous Epith Cells 0-5 SEEN Urine Bacteria 2+ Urine Mucus RARE Radiography Chest X-Ray - ED: 1 View, Read by ED Physician, Heart, Lungs, Mediastinum, Bony Structures, No Acute Disease, Chronic Changes and - (Old left healed rib fractures and left healed clavicle fracture seen on prior films.) Diagnostic Testing: Clinical Impression(s) from Imaging Studies Chest X-Ray 09/27/22 21:09 IMPRESSION: There are no acute findings. Electronically Signed: Aroldo Goldman MD at 21:25 EST Reading Location ID and State: [facility] / [place] , Service support , Chest x-ray, portable, single view interpreted by myself. She described changes no acute process. Old left clavicle healed fracture. Old left upper rib fractures healed. Chronic changes and atelectasis. No obvious pneumonia. Normal cardiac silhouette. Critical Care Time Critical Care Time: Yes Critical care time (excluding procedures): 30-74 minutes, Including time spent:, Discussing w/Patient &/or Family/Summer Associate, Discussing w/Consultants, Arranging Admission or Transfer, Performing Direct Patient Care at Bedside and - (35 min) Discharge Plan Dx/Rx/DC Orders Clinical Impression: Fever, History of intracranial hemorrhage, Acute hypotension, Sepsis, Decubitus ulcer Disposition Disposition: [facility]
[2022-09-27] MEDS: 0.9% Normal Saline 1,000 ML 999 ML IV (20:51)
[2022-09-27 20:55] LABS: Absolute Lymphocyte Count 1.47 X10^3/uL (0.83-4.51); Absolute Neutrophil Count 11.1 X10^3/uL (2.0-7.7); Basophil# 0.03 X10^3/uL; Basophil% 0.2 % (0-1); Eosinophil# 0.01 X10^3/uL; Eosinophils% 0.1 % (0-5); Hematocrit 39.9 % (40-54); Hemoglobin 13.2 g/dL (13.0-16.5); Lymphocyte # 1.47 X10^3/ul (0.83-4.51); Lymphocyte % 11.1 % (19-41); Mean Corp Hgb Conc 33.1 g/dL (32-36); Mean Corpuscular Hgb 29.5 pg (27.0-32.0); Mean Corpuscular Volume 89.3 fL (80-94); Mean Platelet Vol. 9.7 fl (6.2-12.0); Monocyte# 0.55 X10^3/uL; Monocyte% 4.2 % (0-10); NRBC Flagged by Analyzer 0 % (0-5); Neutrophil % 83.9 % (47-70); Platelet Count 314 K/mm3 (150-450); RBC Distribution Width CV 12.8 % (11.6-14.6); RBC Distribution Width SD 42.1 fl (35.1-43.9); Red Blood Count 4.47 M/mm3 (4.6-6.2); White Blood Count 13.2 K/mm3 (4.4-11.0)
[2022-09-27 21:01] LABS: Color, Urine Yellow (Yellow); Glucose, Dipstick Normal (Normal); Ketone-Dipstick 5 mg/dl (Negative); Leukocyte Esterase-Dipstick 100 /ul (Negative); Nitrite-Dipstick Positive (Negative); Occult Blood-Urine 25 /ul (Negative); Protein-Dipstick 15 mg/dl (Negative); Specific Gravity, Urine 1.015 (1.002-1.030); Urine Bilirubin Dipstick Negative (Negative); Urine Clarity Clear (Clear); Urine Urobilinogen Normal (Normal)
[2022-09-27 21:08] LABS: Bacteria 2+ /hpf (None Seen); Mucous, Urine RARE /hpf (<or=2+); Red Blood Cells-Urine 5-10 SEEN /hpf (0-5); Squamous Epithelial Cells - UA 0-5 SEEN /hpf (0-5); White Blood Cells 0-5 SEEN /hpf (0-5)
--- NOTE | 2022-09-27 21:09 | RAD_ITS ---
STUDY: X-RAY CHEST REASON FOR EXAM: Male, 67 years old. fever TECHNIQUE: XR Chest 1 View COMPARISON: 3 FINDINGS: There is atherosclerotic calcification of the aortic arch with tortuosity. There are diffuse degenerative changes of the visualized thoracic spine. There is degenerative osteoarthritis of the bilateral shoulders. Old left rib fractures. Left pleural thickening. Normal size heart. Normal mediastinum and tanmay. Normal visualized pulmonary arteries. There is no demonstrated abnormality of the visualized soft tissue structures of the upper abdomen. RAD/Chest 1 View (Portable) IMPRESSION: There are no acute findings. Electronically Signed: Aroldo Goldman MD at 21:25 EST ,
[2022-09-27 21:11] LABS: International Normalized Ratio 1.1; Prothrombin Time (Protime)PT. 14.1 SECONDS (11.7-14.9)
[2022-09-27 21:12] LABS: Partial Thromboplast Time 30.3 Seconds (24.1-36.2)
[2022-09-27 21:14] LABS: ALB/GLOB Ratio 0.6 RATIO (0.9-2.4); AST(SGOT) 19 U/L (15-37); Alanine Aminotransfer ALT/SGPT 37 U/L (16-61); Albumin, Serum 2.2 g/dL (3.2-5.0); Alkaline Phosphatase 72 U/L (45-117); Anion Gap 7 (5-15); BUN 17 mg/dL (7-18); BUN/Creat Ratio 16.3 RATIO (10-20); Chloride 109 mmol/L (98-107); Creatinine, Serum 1.04 mg/dL (0.70-1.30); EST Glomerular Filtration Rate 75 mL/min (>60); Est Glom Filt Rate - Afr Amer 91 mL/min (>60); Estimated Creatinine Clearance 70.19 ml/min; Globulin 3.8 g/dL (2.2-4.2); Glucose 130 mg/dL (74-106); Potassium 3.9 mmol/L (3.5-5.1); Sodium Level 140 mmol/L (136-145)
[2022-09-27 21:16] VITALS: BP 122/69; PULSE 108; PULSE 110; RESP 28; TEMP 37.3; O2SAT 93
[2022-09-27 21:21] LABS: Lactic Acid 2.5 mmol/L (0.4-1.9)
[2022-09-27 22:00] VITALS: BP 114/76; PULSE 92; RESP 23; TEMP 37.3; O2SAT 93
--- NOTE | 2022-09-27 22:35 | HP.PCM.HOS_ITS ---
HPI - General General Date of Admission: 09/27/22 Date of Service: 09/27/22 Chief Complaint: fever HPI Narrative KORY FLEMING, is a 67 M with a significant history of traumatic brain injury and seizures; and who lives at an extended correction presenting with a fever. Patient had a temperature of more than 100 Fahrenheit at the correction where he lives. Also patient was found to be somnolent and was sleeping while eating. Per patient fianc? who is also the power of deputy attorney general she scooped food out of patient's mouth because patient was sleeping and patient did not even have any gag reflex. Reportedly patient's systolic blood pressure was in the 80s at the correction. At baseline patient systolic blood pressure is at least 120. Also patient heart rate at the correction was elevated. Patient's fianc? request that greta bey be brought to the hospital. Reportedly Patient was started on antibiotics for decubitus ulcer. [facility] Medical History Exposure to Agent [place] Inguinal hernia Seizures TBI (traumatic brain injury) Home Medications calcium carbonate 500 mg calcium (1,250 mg) tablet 500 mg PO DAILY supplement 06/23/20 [History Last Taken 12/01/20] ascorbic acid (vitamin C) 1,000 mg tablet 1,000 mg PO DAILY supplement 12/02/20 [History Last Taken 12/01/20] omeprazole 20 mg tablet,delayed release 20 mg PO QHS reflux 12/02/20 [History Last Taken 12/01/20] acetaminophen 650 mg rectal suppository 650 mg MD Q4H PRN Fever Or Pain 09/27/22 [History Last Taken Unknown] acetaminophen 650 mg tablet 650 mg PO Q4H PRN Fever Or Pain 09/27/22 [History Last Taken Unknown] aspirin 81 mg chewable tablet 81 mg PO DAILY 09/27/22 [History Last Taken Unknown] clobazam 10 mg tablet 10 mg PO QHS 09/27/22 [History Last Taken Unknown] clonidine 0.1 mg/24 hr weekly transdermal patch 1 patch transdermal QWEEK 09/27/22 [History Last Taken Unknown] diazepam 5 mg tablet 2.5 mg PO BID anxiety 09/27/22 [History Last Taken Unknown] lacosamide 200 mg tablet 200 mg PO BID 09/27/22 [History Last Taken Unknown] lacosamide 50 mg tablet 50 mg PO BID 09/27/22 [History Last Taken Unknown] melatonin 3 mg tablet 9 mg PO QHS 09/27/22 [History Last Taken Unknown] multivitamin,tx-minerals 1 tab PO DAILY 09/27/22 [History Last Taken Unknown] oxcarbazepine 150 mg tablet 150 mg PO QHS seizure 09/27/22 [History Last Taken Unknown] potassium chloride 20 mEq tablet,extended release(part/cryst) 20 meq PO DAILY 09/27/22 [History Last Taken Unknown] sennosides 8.6 mg tablet (senna) 8.6 mg PO DAILY 09/27/22 [History Last Taken Unknown] sulfamethoxazole 800 mg-trimethoprim 160 mg tablet (Bactrim DS) 1 tab PO BID 09/27/22 [History Last Taken Unknown] vitamin B complex 1 cap PO DAILY 09/27/22 [History Last Taken Unknown] Allergy/AdvReac Type Severity Reaction Status Date / Time adhesive tape Allergy NEEDS Verified 09/27/22 20:18 FOLLOW-UP cefepime Allergy NEEDS Verified 09/27/22 20:18 FOLLOW-UP haloperidol Allergy NEEDS Verified 09/27/22 20:18 FOLLOW-UP piperacillin [From Zosyn] Allergy Rash Verified 02/10/20 22:04 quetiapine Allergy NEEDS Verified 09/27/22 20:18 FOLLOW-UP tazobactam [From Zosyn] Allergy Rash Verified 02/10/20 22:04 Family History Other Cancer Surgical History H/O parathyroidectomy Social History Smoking Status: Never smoker ROS Review of Systems ROS Unobtainable: due to mental condition Vital Signs Vital Signs Vital Signs: 09/27/22 20:14 09/27/22 20:18 09/27/22 20:16 Temperature 101.9 F H 101.9 F H Temperature Source Axillary Axillary Pulse Rate 121 H 121 H 121 H Respiratory Rate 24 H 24 H 24 H Blood Pressure 95/81 H 95/81 H 95/81 H Blood Pressure Mean 85 85 85 Pulse Ox 94 95 95 Oxygen Delivery Method Room Air Room Air Room Air Fraction of Inspired Oxygen (FIO2) 09/27/22 20:52 09/27/22 21:16 09/27/22 21:16 Temperature 99.1 F Temperature Source Temporal Pulse Rate 108 H 110 H Respiratory Rate 28 H Blood Pressure 122/69 H Blood Pressure Mean 86 Pulse Ox 93 Oxygen Delivery Method Room Air Room Air Fraction of Inspired Oxygen (FIO2) 97 Weight Weight: 89.9 kg Body Mass Index (BMI) 28.4 Physical Exam Narrative Physical exam: General: Well-nourished, well-developed. Head: Normocephalic, atraumatic, no tenderness Eyes: Vision is grossly intact. EOMI ENT, no trauma,no rhinorrhea Neck: Nontender, No thyromegaly. CVS: Regular rate and rhythm. S1-S2 present. No murmur, gallop or rub. Respiratory : clear to auscultation bilaterally, chest wall nontender, no wheezing Abdomen: Soft, nontender, nondistended, normal bowel sounds, no masses : Deep necrotic ulcer at sacrococcygeal area. Extremities: Nontender full range of motion, no trauma Skin: Normal color, no trauma, abrasions Neuro: Alert, catatonia. Unable to describe why he is at the hospital Psychiatry: Normal mood. Normal affect. Not depressed. Not anxious. Results Lab / Micro Data Result Diagrams: 09/27/22 20:35 09/27/22 20:35 Labs: Laboratory Results - last 24 hr 09/27/22 20:35: WBC 13.2 H, RBC 4.47 L, Hgb 13.2, Hct 39.9 L, MCV 89.3, MCH 29.5, MCHC 33.1, RDW Std Deviation 42.1, RDW Coeff of [place] 12.8, Plt Count 314, MPV 9.7, Immature Gran % (Auto) 0.500, Neut % (Auto) 83.9 H, Lymph % (Auto) 11.1 L, [place] % (Auto) 4.2, Eos % (Auto) 0.1, Baso % (Auto) 0.2, Absolute Neuts (auto) 11.1 H, Absolute Lymphs (auto) 1.47, Nucleated RBC % 0 09/27/22 20:35: PT 14.1, INR 1.1, APTT 30.3 09/27/22 20:35: Sodium 140, Potassium 3.9, Chloride 109 H, Carbon Dioxide 24.0, Anion Gap 7, BUN 17, Creatinine 1.04, Estim Creat Clear Calc 70.19, Est GFR (MDRD) Af Amer 91, Est GFR (MDRD) Non-Af 75, BUN/Creatinine Ratio 16.3, Glucose 130 H, Calcium 8.0 L, Total Bilirubin 0.30, AST 19, ALT 37, Alkaline Phosphatase 72, Total Protein 6.0 L, Albumin 2.2 L, Globulin 3.8, Albumin/Globulin Ratio 0.6 L 09/27/22 20:35: Lactic Acid 2.5 H* 09/27/22 20:35: Urine Color Yellow, Urine Clarity Clear, Urine pH 7.0, Ur Specific [place] 1.015, Urine Protein 15 H, Urine Glucose (UA) Normal, Urine Ketones 5 H, Urine Occult Blood 25 H, Urine Nitrite Positive H, Urine Bilirubin Negative, Urine Urobilinogen Normal, Ur Leukocyte Esterase 100 H, Urine RBC 5-10 SEEN, Urine WBC 0-5 SEEN, Ur Squamous Epith Cells 0-5 SEEN, Urine Bacteria 2+, Urine Mucus RARE Micro: Microbiology 09/27/22 20:47 Nasal Secretion SARS-CoV-2 & FLU Antigen (Rapid) - Final Radiology Impression Chest X-Ray 09/27/22 21:09 IMPRESSION: There are no acute findings. Electronically Signed: Aroldo Goldman MD at 21:25 EST Reading Location ID and State: [address] [place] [address] , Service support , Assessment & Plan Assessment/Plan (1) Sepsis: (2) Infected decubitus ulcer: PLAN: Plan The patient presented with sepsis due to (infected decubitus ulcer) with acute sepsis related organ dysfunction as evidenced by (lactic acidosis). Chest x-ray was independently interpreted with no acute findings seen. I agree radiology interpretation. Urinalysis with positive nitrite, positive leukocyte esterase but with urine RBC of 0-5. Urine bacteria 2+. COVID and influenza screen are negative. Wound culture obtained at the emergency department, follow. Blood culture ordered at the emergency department, follow. Urine culture ordered at the emergency department, follow. SIRS criteria: T-max of 101.9F Respiratory rate more than 20 Heart rate of of more than 90. White count of 13,200. WBC more than 12,000 Lactic acid of 2.5; trend Recently started on Bactrim. Vancomycin started at the emergency department and continued. Levaquin ordered. Admit to the intensive care unit and consult software writer. Infected decubitus ulcer (stage III) Wet-to-dry dressing until further wound care recommendations. Wound care consult. Acidosis hypocalcemia Calcium level of 8.0 with albumin level of 0.6. Trend BMP. DVT prophylaxis Subcutaneous Lovenox ordered. Charges/Coding Visit Charges Inpatient E&M: 98627 Init Hosp L3
[2022-09-27 23:00] VITALS: BP 118/99; PULSE 86; RESP 16; TEMP 37.2; O2SAT 92; O2SAT 93
[2022-09-28] VITALS (19 sets, daily range): BP systolic 88–157; BP diastolic 52–82; PULSE 73–100; RESP 10–24; TEMP 36.6–37.1; O2SAT 95–100; BMI 26.9
--- NOTE | 2022-09-28 00:38 | PCM.RX.CS ---
Consult Pharmacy has been consulted to manage selected antiobiotic: Vancomycin Type of Consult: New start Suspected Infection: Sepsis Prior Doses of Antibiotics Received/Current Regimen: Medications Vancomycin HCl 1,250 mg/ (Sodium Chloride) 275 mls @ 167 mls/hr IV Q12H [place] Discontinued Medications Vancomycin HCl 2,000 mg/ (Sodium Chloride) 540 mls @ 250 mls/hr IV X1 ONE Stop: 09/27/22 23:41 Last Admin: 09/27/22 21:55 Dose: 250 mls/hr Labs: Sodium 140 mmol/L (136-145) 09/27/22 20:35 Potassium 3.9 mmol/L (3.5-5.1) 09/27/22 20:35 Chloride 109 mmol/L (98-107) H 09/27/22 20:35 Carbon Dioxide 24.0 mmol/L (21.0-32.0) 09/27/22 20:35 Anion Gap 7 (5-15) 09/27/22 20:35 BUN 17 mg/dL (7-18) 09/27/22 20:35 Creatinine 1.04 mg/dL (0.70-1.30) 09/27/22 20:35 Est GFR (MDRD) Af Amer 91 mL/min (>60) 09/27/22 20:35 Est GFR (MDRD) Non-Af 75 mL/min (>60) 09/27/22 20:35 BUN/Creatinine Ratio 16.3 RATIO (10-20) 09/27/22 20:35 Glucose 130 mg/dL (74-106) H 09/27/22 20:35 Microbiology: Microbiology 09/27/22 20:47 Nasal Secretion SARS-CoV-2 & FLU Antigen (Rapid) - Final Weight used for dosin.9 kg Estimated Creatinine Clearance: 70 Goal Trough: 15-20 mcg/mL Pharmacy Plan for Drug Dosing: Pharmacy Service will continue to monitor and adjust dosing as required. Follow-Up Labs: Trough Vancomycin Labs to be done on [date and time ordered]: 09/29/22 @0930
[2022-09-28] MEDS: levoFLOXacin IV 750 MG/150 ML BAG 100 MG IV (00:39)
[2022-09-28 00:48] LABS: Reflex Lactate? Y
[2022-09-28] MEDS: 0.9% Normal Saline 1,000 ML 100 ML IV (00:50)
[2022-09-28 01:38] LABS: Lactic Acid 1.1 mmol/L (0.4-1.9)
--- NOTE | 2022-09-28 07:21 | PN.HOSP_ITS ---
Subjective Subjective Pt minimally cooperative during exam and irritable Objective Data Objective Data Vital Signs: Vital Signs Temp Pulse Resp BP Pulse Ox O2 Del Method FiO2 98.1 F 73 10 L 101/56 L 96 Room Air 97 09/28/22 06:00 09/28/22 06:00 09/28/22 06:00 09/28/22 06:00 09/28/22 06:00 09/28/22 06:00 09/27/22 20:52 Oxygen Delivery Method Room Air Weight: 85.321 kg Body Mass Index (BMI) 26.9 Intake & Output: Intake and Output for Last 24 Hours 09/26/22 09/27/22 09/28/22 23:59 23:59 23:59 Intake Total 1000 / 1000 690 / 690 Balance 1000 / 1000 690 / 690 Lab / Micro Data Result Diagrams: 09/27/22 20:35 09/27/22 20:35 Labs: Laboratory Results - last 24 hr 09/27/22 20:35: WBC 13.2 H, RBC 4.47 L, Hgb 13.2, Hct 39.9 L, MCV 89.3, MCH 29.5, MCHC 33.1, RDW Std Deviation 42.1, RDW Coeff of [place] 12.8, Plt Count 314, MPV 9.7, Immature Gran % (Auto) 0.500, Neut % (Auto) 83.9 H, Lymph % (Auto) 11.1 L, [place] % (Auto) 4.2, Eos % (Auto) 0.1, Baso % (Auto) 0.2, Absolute Neuts (auto) 11.1 H, Absolute Lymphs (auto) 1.47, Nucleated RBC % 0 09/27/22 20:35: PT 14.1, INR 1.1, APTT 30.3 09/27/22 20:35: Sodium 140, Potassium 3.9, Chloride 109 H, Carbon Dioxide 24.0, Anion Gap 7, BUN 17, Creatinine 1.04, Estim Creat Clear Calc 70.19, Est GFR (MDRD) Af Amer 91, Est GFR (MDRD) Non-Af 75, BUN/Creatinine Ratio 16.3, Glucose 130 H, Calcium 8.0 L, Total Bilirubin 0.30, AST 19, ALT 37, Alkaline Phosphatase 72, Total Protein 6.0 L, Albumin 2.2 L, Globulin 3.8, Albumin/Globulin Ratio 0.6 L 09/27/22 20:35: Lactic Acid 2.5 H* 09/27/22 20:35: Urine Color Yellow, Urine Clarity Clear, Urine pH 7.0, Ur Specific [place] 1.015, Urine Protein 15 H, Urine Glucose (UA) Normal, Urine Ketones 5 H, Urine Occult Blood 25 H, Urine Nitrite Positive H, Urine Bilirubin Negative, Urine Urobilinogen Normal, Ur Leukocyte Esterase 100 H, Urine RBC 5-10 SEEN, Urine WBC 0-5 SEEN, Ur Squamous Epith Cells 0-5 SEEN, Urine Bacteria 2+, Urine Mucus RARE 09/28/22 00:35: WBC Cancelled, Corrected WBC Cancelled, RBC Cancelled, Hgb Cancelled, Hct Cancelled, MCV Cancelled, MCH Cancelled, MCHC Cancelled, RDW Std Deviation Cancelled, RDW Coeff of [place] Cancelled, Plt Count Cancelled, MPV Cancelled, Immature Gran % (Auto) Cancelled, Neut % (Auto) Cancelled, Lymph % (Auto) Cancelled, [place] % (Auto) Cancelled, Eos % (Auto) Cancelled, Baso % (Auto) Cancelled, Absolute Neuts (auto) Cancelled, Absolute Lymphs (auto) Cancelled, Total Counted Cancelled, Neutrophils % (Manual) Cancelled, Band Neutrophils % Cancelled, Lymphocytes % (Manual) Cancelled, Monocytes % (Manual) Cancelled, Eosinophils % (Manual) Cancelled, Basophils % (Manual) Cancelled, Metamyelocytes % Cancelled, Myelocytes % Cancelled, Promyelocytes % Cancelled, Blast Cells % Cancelled, Plasma Cell % (Manual) Cancelled, Other Cells % Cancelled, Nucleated RBC % Cancelled, Nucleated RBCs/100 WBC Cancelled, Differential Comment Cancelled, Diff Path Review Cancelled, Hypersegmented Neuts Cancelled, Atypical Lymphocytes Cancelled, Reactive Lymphocytes Cancelled, Smudge Cells Cancelled, Toxic Granulation Cancelled, Toxic Vacuolation Cancelled, Dohle Bodies Cancelled, Johana Rods Cancelled, Platelet Estimate Cancelled, Plt Morphology Comment Cancelled, RBC Morphology Cancelled, Polychromasia Cancelled, Hypochromasia Cancelled, Poikilocytosis Cancelled, Basophilic Stippling Canc elled, Anisocytosis Cancelled, Microcytosis Cancelled, Macrocytosis Cancelled, Spherocytes Cancelled, Sickle Cells Cancelled, Target Cells Cancelled, Tear Drop Cells Cancelled, Ovalocytes Cancelled, Stomatocytes Cancelled, [place] Mystic Bodies Cancelled, Doris Cells Cancelled, Bite Cells Cancelled, Crenated Cell Cancelled, Acanthocytes (Spur) Cancelled, Rouleaux Cancelled, Schistocytes Cancelled 09/28/22 00:35: Sodium Cancelled, Potassium Cancelled, Chloride Cancelled, Carbo n Dioxide Cancelled, Anion Gap Cancelled, BUN Cancelled, Creatinine Cancelled, Estim Creat Clear Calc Cancelled, Est GFR (MDRD) Af Amer Cancelled, Est GFR (MDRD) Non-Af Cancelled, BUN/Creatinine Ratio Cancelled, Glucose Cancelled, Calcium Cancelled 09/28/22 01:05: Lactic Acid 1.1 Micro: Microbiology 09/27/22 20:47 Nasal Secretion SARS-CoV-2 & FLU Antigen (Rapid) - Final Radiography Diagnostic Testing: Radiology Impression Chest X-Ray 09/27/22 21:09 IMPRESSION: There are no acute findings. Electronically Signed: Aroldo Goldman MD at 21:25 EST Reading Location ID and State: [facility] / [place] , Service support , Physical Exam Const no apparent distress Constitutional Narrative: resting comfortably HEENT normocephalic and head/scalp atraumatic Eyes Eyes Narrative: Won't open eyes voluntarily Neck supple Resp normal respiratory effort and clear to auscultation bilaterally Cardio regular rate and regular rhythm GI soft to palpation, non-tender and non-distended Extremity Extremity Narrative: No edema appreciated Neuro moves all extremities Neuro Narrative: No overt focal deficits appreciated Psych Psych Narrative: Uncooperative Assessment & Plan Assessment/Plan (1) Sepsis: (2) Infected decubitus ulcer: PLAN: Plan #Sepsis secondary to decubitus ulcer On presentation had lactic acidosis, respiratory rate greater than 20, heart rate of greater than 90, elevated white count, elevated temperature Cultures pending Had recently and started on Bactrim as an outpatient, vancomycin started on Levaquin ordered Admitted to the ICU, risk and insurance manager consulted Fluids Lactic acid did resolve and was 1.1 Did have UA with nitrate and leuk esterase as well as bacteria, no symptoms had been reported, does have urine culture pending #Infected stage III decubitus ulcer Wound care consult On vancomycin and Levaquin #History of seizure disorder Continue Valium and Vimpat as well as Trileptal #History of TBI Lives in an extended halfway #DVT prophylaxis: Lovenox Charges/Coding Visit Charges Inpatient E&M: 36613 Subs Hosp L2
--- NOTE | 2022-09-28 07:52 | EX.PCM.CONCC ---
Assessment & Plan Assessment/Plan (1) Sepsis: PLAN: Plan RECOMMENDATIONS: 1. Continue empiric antimicrobials. 2. Wound care consultation with local wound care of decubitus ulcers. 3. Continue antiepileptics per home regimen. 4. Continue appropriate DVT prophylaxis. 5. The patient is medically stable for transfer out of the intensive care unit. 6. We will sign off from a critical care perspective. Please call with any additional questions. IMPRESSIONS: 1. Sepsis The patient presented with sepsis due to possible infected decubitus ulcer versus urinary tract source of infection with acute sepsis related organ dysfunction as evidenced by lactic acidemia and altered mentation. The patient did receive supplemental IV fluid hydration with stabilization in his hemodynamics. He was started on empiric broad-spectrum antimicrobials. The patient remains hemodynamically stable on room air. Mild lactic acidemia has resolved. Continue current supportive measures. 2. History of TBI with seizure disorder Complicates care, management, recovery and prognosis. Continue home medications as indicated. This note was generated with [employer] dictation software. It may contain incorrect words, spelling, and punctuation that were not noted in checking the note before signing. HPI Consult Data Date of Consult: 09/28/22 HPI Narrative Reason for Consultation: Sepsis HPI Narrative: The patient is a 67-year-old male, with a history as outlined below, who presented to the emergency department on September 27 with fever and hypotension. The patient's medical history is significant for traumatic brain injury and seizures. He currently resides at a correction facility. There was some initial concern for a potential infected decubitus ulcer as well. On presentation to the emergency department, the patient was documented to be febrile with a temperature of 101.9 ?F. He was notably tachycardic and tachypneic as well. Initial laboratory evaluation revealed a white blood cell count of 13,000. Coagulation profile was within normal limits. Chemistry profile was unrevealing, with the exception of a lactate of 2.5. Urine analysis was positive for nitrites, leukocyte Estrace and 2+ urine bacteria. Chest x-ray demonstrated no acute cardiopulmonary process. The patient received supplemental IV fluid hydration and was started on antimicrobials. [facility] Medical History Exposure to Agent [place] Inguinal hernia Seizures TBI (traumatic brain injury) Home Medications calcium carbonate 500 mg calcium (1,250 mg) tablet 500 mg PO DAILY supplement 10/04/20 [History Last Taken 12/01/20] ascorbic acid (vitamin C) 1,000 mg tablet 1,000 mg PO DAILY supplement 12/02/20 [History Last Taken 12/01/20] omeprazole 20 mg tablet,delayed release 20 mg PO QHS reflux 12/02/20 [History Last Taken 12/01/20] acetaminophen 650 mg rectal suppository 650 mg OK Q4H PRN Fever Or Pain 09/27/22 [History Last Taken Unknown] acetaminophen 650 mg tablet 650 mg PO Q4H PRN Fever Or Pain 09/27/22 [History Last Taken Unknown] aspirin 81 mg chewable tablet 81 mg PO DAILY 09/27/22 [History Last Taken Unknown] clobazam 10 mg tablet 10 mg PO QHS 09/27/22 [History Last Taken Unknown] clonidine 0.1 mg/24 hr weekly transdermal patch 1 patch transdermal QWEEK 09/27/22 [History Last Taken Unknown] diazepam 5 mg tablet 2.5 mg PO BID anxiety 09/27/22 [History Last Taken Unknown] lacosamide 200 mg tablet 200 mg PO BID 09/27/22 [History Last Taken Unknown] lacosamide 50 mg tablet 50 mg PO BID 09/27/22 [History Last Taken Unknown] melatonin 3 mg tablet 9 mg PO QHS 09/27/22 [History Last Taken Unknown] multivitamin,tx-minerals 1 tab PO DAILY 09/27/22 [History Last Taken Unknown] oxcarbazepine 150 mg tablet 150 mg PO QHS seizure 09/27/22 [History Last Taken Unknown] potassium chloride 20 mEq tablet,extended release(part/cryst) 20 meq PO DAILY 09/27/22 [History Last Taken Unknown] sennosides 8.6 mg tablet (senna) 8.6 mg PO DAILY 09/27/22 [History Last Taken Unknown] sulfamethoxazole 800 mg-trimethoprim 160 mg tablet (Bactrim DS) 1 tab PO BID 09/27/22 [History Last Taken Unknown] vitamin B complex 1 cap PO DAILY 09/27/22 [History Last Taken Unknown] cholecalciferol (vitamin D3) 125 mcg (5,000 unit) tablet 5,000 unit PO DAILY Check with primary doctor 09/28/22 [History Last Taken Unknown] Allergy/AdvReac Type Severity Reaction Status Date / Time adhesive tape Allergy NEEDS Verified 09/27/22 20:18 FOLLOW-UP cefepime Allergy NEEDS Verified 09/27/22 20:18 FOLLOW-UP haloperidol Allergy NEEDS Verified 09/27/22 20:18 FOLLOW-UP piperacillin [From Zosyn] Allergy Rash Verified 02/10/20 22:04 quetiapine Allergy NEEDS Verified 09/27/22 20:18 FOLLOW-UP tazobactam [From Zosyn] Allergy Rash Verified 02/10/20 22:04 Family History Other Cancer Surgical History H/O parathyroidectomy Social History Smoking Status: Never smoker ROS ROS Narrative 10 systems reviewed with pertinent positives as noted in the HPI above. Physical Exam Const alert and no apparent distress Constitutional Narrative: The patient is somewhat agitated when stimulated. HEENT normocephalic and head/scalp atraumatic Eyes PERRL and EOMs intact bilaterally Neck supple General: trachea midline Chest inspection of chest normal Resp normal respiratory effort Auscultation: Negative for rales, rhonchi or wheezes Cardio regular rate and regular rhythm GI normal to inspection, nondistended, normoactive bowel sounds Extremity no clubbing, cyanosis or edema Neuro CN's II-XII intact bilaterally and no focal motor deficits Psych Mood & Affect: flat affect Lab / Micro Data Result Diagrams: 09/27/22 20:35 09/27/22 20:35 Labs: Laboratory Results - last 24 hr 09/27/22 20:35: WBC 13.2 H, RBC 4.47 L, Hgb 13.2, Hct 39.9 L, MCV 89.3, MCH 29.5, MCHC 33.1, RDW Std Deviation 42.1, RDW Coeff of [place] 12.8, Plt Count 314, MPV 9.7, Immature Gran % (Auto) 0.500, Neut % (Auto) 83.9 H, Lymph % (Auto) 11.1 L, Rich % (Auto) 4.2, Eos % (Auto) 0.1, Baso % (Auto) 0.2, Absolute Neuts (auto) 11.1 H, Absolute Lymphs (auto) 1.47, Nucleated RBC % 0 09/27/22 20:35: PT 14.1, INR 1.1, APTT 30.3 09/27/22 20:35: Sodium 140, Potassium 3.9, Chloride 109 H, Carbon Dioxide 24.0, Anion Gap 7, BUN 17, Creatinine 1.04, Estim Creat Clear Calc 70.19, Est GFR (MDRD) Af Amer 91, Est GFR (MDRD) Non-Af 75, BUN/Creatinine Ratio 16.3, Glucose 130 H, Calcium 8.0 L, Total Bilirubin 0.30, AST 19, ALT 37, Alkaline Phosphatase 72, Total Protein 6.0 L, Albumin 2.2 L, Globulin 3.8, Albumin/Globulin Ratio 0.6 L 09/27/22 20:35: Lactic Acid 2.5 H* 09/27/22 20:35: Urine Color Yellow, Urine Clarity Clear, Urine pH 7.0, Ur Specific [place] 1.015, Urine Protein 15 H, Urine Glucose (UA) Normal, Urine Ketones 5 H, Urine Occult Blood 25 H, Urine Nitrite Positive H, Urine Bilirubin Negative, Urine Urobilinogen Normal, Ur Leukocyte Esterase 100 H, Urine RBC 5-10 SEEN, Urine WBC 0-5 SEEN, Ur Squamous Epith Cells 0-5 SEEN, Urine Bacteria 2+, Urine Mucus RARE 09/28/22 00:35: WBC Cancelled, Corrected WBC Cancelled, RBC Cancelled, Hgb Cancelled, Hct Cancelled, MCV Cancelled, MCH Cancelled, MCHC Cancelled, RDW Std Deviation Cancelled, RDW Coeff of [place] Cancelled, Plt Count Cancelled, MPV Cancelled, Immature Gran % (Auto) Cancelled, Neut % (Auto) Cancelled, Lymph % (Auto) Cancelled, Rich % (Auto) Cancelled, Eos % (Auto) Cancelled, Baso % (Auto) Cancelled, Absolute Neuts (auto) Cancelled, Absolute Lymphs (auto) Cancelled, Total Counted Cancelled, Neutrophils % (Manual) Cancelled, Band Neutrophils % Cancelled, Lymphocytes % (Manual) Cancelled, Monocytes % (Manual) Cancelled, Eosinophils % (Manual) Cancelled, Basophils % (Manual) Cancelled, Metamyelocytes % Cancelled, Myelocytes % Cancelled, Promyelocytes % Cancelled, Blast Cells % Cancelled, Plasma Cell % (Manual) Cancelled, Other Cells % Cancelled, Nucleated RBC % Cancelled, Nucleated RBCs/100 WBC Cancelled, Differential Comment Cancelled, Diff Path Review Cancelled, Hypersegmented Neuts Cancelled, Atypical Lymphocytes Cancelled, Reactive Lymphocytes Cancelled, Smudge Cells Cancelled, Toxic Granulation Cancelled, Toxic Vacuolation Cancelled, Dohle Bodies Cancelled, Johana Rods Cancelled, Platelet Estimate Cancelled, Plt Morphology Comment Cancelled, RBC Morphology Cancelled, Polychromasia Cancelled, Hypochromasia Cancelled, Poikilocytosis Cancelled, Basophilic Stippling Cancelled, Anisocytosis Cancelled, Microcytosis Cancelled, Macrocytosis Cancelled, Spherocytes Cancelled, Sickle Cells Cancelled, Target Cells Cancelled, Tear Drop Cells Cancelled, Ovalocytes Cancelled, Stomatocytes Cancelled, [place] Bodies Cancelled, [place] Cells Cancelled, Bite Cells Cancelled, Crenated Cell Cancelled, Acanthocytes (Spur) Cancelled, Rouleaux Cancelled, Schistocytes Cancelled 09/28/22 00:35: Sodium Cancelled, Potassium Cancelled, Chloride Cancelled, Carbon Dioxide Cancelled, Anion Gap Cancelled, BUN Cancelled, Creatinine Cancelled, Estim Creat Clear Calc Cancelled, Est GFR (MDRD) Af Amer Cancelled, Est GFR (MDRD) Non-Af Cancelled, BUN/Creatinine Ratio Cancelled, Glucose Cancelled, Calcium Cancelled 09/28/22 01:05: Lactic Acid 1.1 Micro: Microbiology 09/27/22 20:47 Nasal Secretion SARS-CoV-2 & FLU Antigen (Rapid) - Final Radiology Impression Chest X-Ray 09/27/22 21:09 IMPRESSION: There are no acute findings. Electronically Signed: Aroldo Goldman MD at 21:25 EST , Charges/Coding Visit Charges Inpatient E&M: 97672 Init Hosp L3
--- NOTE | 2022-09-28 10:22 | WOUNDNOTE ---
wound photo: sacrum/bilateral ischium
[2022-09-28] MEDS: diazePAM 5 MG Tablet 2.5 MG PO (10:48)
[2022-09-28] MEDS: Lacosamide 50 MG Tablet PO (10:48)
[2022-09-28] MEDS: Lacosamide 100 MG Tablet 200 MG PO (10:48)
[2022-09-28] MEDS: 0.9% Saline Lock 10 ML Syringe IV (11:16)
--- NOTE | 2022-09-28 14:54 | CASEMGMT ---
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 Pt can return to [facility] when medically ready. Plan: [facility], when medically ready JERMAIN Rivera Original Note: Social Work SW attempted to meet with pt but pt not waking up. SW met with pt MIRACLE Holland. Pt has been at [facility] since 08/27 and was at [facility] prior to that. Per Jose, pt plans are to return to [facility]. Clinical updates sent to [facility] via [employer]. Plan: [facility], when medically ready JERMAIN Rivera
[2022-09-28] MEDS: Ensure Plus High Protein 120 ML LIQUID PO (17:01)
[2022-09-28] MEDS: Juven (unflavored) Packet 1 PACKET PO (17:02)
--- NOTE | 2022-09-28 22:05 | NURSING ---
Pt's , Jose, called in to bedside d/t pt's behaviors and outbursts, unable to get seizure meds in to pt.
[2022-09-28] MEDS: DAKIN'S SOL HALF STRENGTH (=0.25%) 1 APPLIC TOPICAL (22:54)
[2022-09-29] MEDS: LORazepam 2 MG/ML Syringe 1 MG IV (00:13)
[2022-09-29] MEDS: levoFLOXacin IV 750 MG/150 ML BAG 100 MG IV (00:47)
[2022-09-29 02:00] VITALS: BP 145/94; PULSE 100; PULSE 103; RESP 40; TEMP 36.6; O2SAT 92
[2022-09-29 03:06] VITALS: BP 136/110; PULSE 100; RESP 14; TEMP 36.6; O2SAT 93
[2022-09-29 04:09] VITALS: BP 120/96; PULSE 102; RESP 16; TEMP 36.9; O2SAT 94
[2022-09-29] MEDS: Morphine 4 MG/ML Syringe IV ×4 (04:47→18:32)
[2022-09-29] MEDS: 0.9% Saline Lock 10 ML Syringe IV ×4 (04:48→18:32)
[2022-09-29] MEDS: Morphine 2 MG/ML Syringe IV (05:59)
--- NOTE | 2022-09-29 07:04 | PCM.PN.HOSP ---
Subjective Subjective Overnight patient had several seizures and when he was given Ativan he began to have difficulty clearing secretions, presented and made him DNR CC. This morning he was resting comfortably with at bedside, supportive care provided Objective Data Objective Data Vital Signs: Vital Signs Temp Pulse Resp BP Pulse Ox O2 Del Method O2 Flow Rate 98.5 F 102 H 16 120/96 H 94 Nasal Cannula 6 09/29/22 04:09 09/29/22 04:09 09/29/22 04:09 09/29/22 04:09/29/22 04:09 09/29/22 04:09 09/29/22 04:09 FiO2 97 09/27/22 20:52 Oxygen Flow Rate (L/min) 6 Oxygen Delivery Method Nasal Cannula Weight: 85 kg Body Mass Index (BMI) 26.9 Intake & Output: Intake and Output for Last 24 Hours 09/27/22 09/28/22 09/29/22 23:59 23:59 23:59 Intake Total 1000 / 1000 2215 / 2215 500 / 500 Output Total 1000 / 1000 Balance 1000 / 1000 2215 / 2215 -500 / -500 Lab / Micro Data Result Diagrams: 09/27/22 20:35 09/27/22 20:35 Micro: Microbiology 09/27/22 20:35 Blood Culture (Wb) - Anticubital Left Blood Culture - Preliminary 09/27/22 20:40 Blood Culture (Wb) - Right Forearm Bacteria Detection (PCR) - Preliminary Coag Negative Staph 09/27/22 20:40 Blood Culture (Wb) - Right Forearm Blood Culture - Preliminary 09/28/22 00:40 Wound - Buttock Gram Stain - Final 09/27/22 20:47 Nasal Secretion SARS-CoV-2 & FLU Antigen (Rapid) - Final Physical Exam Narrative Deferred, end-of-life, DNR CC Assessment & Plan Assessment/Plan (1) Sepsis: (2) Infected decubitus ulcer: PLAN: Plan #History of seizure disorder Continue Valium and Vimpat as well as Trileptal 09/29: Overnight had several seizures, Vimpat IV. Comfort measures #Sepsis secondary to decubitus ulcer On presentation had lactic acidosis, respiratory rate greater than 20, heart rate of greater than 90, elevated white count, elevated temperature Cultures pending Had recently and started on Bactrim as an outpatient, vancomycin started on Levaquin ordered Admitted to the ICU, workers compensation adjuster consulted Fluids Lactic acid did resolve and was 1.1 Did have UA with nitrate and leuk esterase as well as bacteria, no symptoms had been reported, does have urine culture pending 09/29: Comfort measures per family request #Infected stage III decubitus ulcer Wound care consult On vancomycin and Levaquin 09/29: Comfort measures #History of TBI Lives in an extended alf #DVT prophylaxis: We will defer, end-of-life Charges/Coding Visit Charges Inpatient E&M: 68453 Subs Hosp L1
[2022-09-29 10:00] VITALS: BP 100/67; PULSE 74; RESP 11; TEMP 36.9; O2SAT 93
--- NOTE | 2022-09-29 10:42 | WOUNDNOTE ---
Family present in room. patient was made comfort care last evening. family requesting patient not be moved at this time since patient appears comfortable at this time. nursing aware to let this nurse know if family is wanting the sacral dressing changed.
[2022-09-29 11:00] LABS: Absolute Lymphocyte Count 1.89 X10^3/uL (0.83-4.51); Absolute Neutrophil Count 5.6 X10^3/uL (2.0-7.7); Basophil# 0.02 X10^3/uL; Basophil% 0.2 % (0-1); Eosinophil# 0.11 X10^3/uL; Eosinophils% 1.3 % (0-5); Hematocrit 38.6 % (40-54); Lymphocyte # 1.89 X10^3/ul (0.83-4.51); Lymphocyte % 23.1 % (19-41); Mean Corp Hgb Conc 33.7 g/dL (32-36); Mean Corpuscular Hgb 30.5 pg (27.0-32.0); Mean Corpuscular Volume 90.6 fL (80-94); Mean Platelet Vol. 9.4 fl (6.2-12.0); Monocyte# 0.55 X10^3/uL; Monocyte% 6.7 % (0-10); NRBC Flagged by Analyzer 0 % (0-5); Neutrophil # 5.59 X10^3/uL (2.7-7.7); Neutrophil % 68.5 % (47-70); Platelet Count 295 K/mm3 (150-450); RBC Distribution Width CV 13.2 % (11.6-14.6); RBC Distribution Width SD 43.4 fl (35.1-43.9); Red Blood Count 4.26 M/mm3 (4.6-6.2); White Blood Count 8.2 K/mm3 (4.4-11.0)
[2022-09-29 11:22] LABS: ALB/GLOB Ratio 0.6 RATIO (0.9-2.4); AST(SGOT) 14 U/L (15-37); Alanine Aminotransfer ALT/SGPT 28 U/L (16-61); Albumin, Serum 2.2 g/dL (3.2-5.0); Alkaline Phosphatase 67 U/L (45-117); Anion Gap 5 (5-15); BUN 13 mg/dL (7-18); BUN/Creat Ratio 16.4 RATIO (10-20); Calcium,Total 8.2 mg/dL (8.5-10.1); Chloride 109 mmol/L (98-107); Creatinine, Serum 0.79 mg/dL (0.70-1.30); EST Glomerular Filtration Rate 103 mL/min (>60); Est Glom Filt Rate - Afr Amer 125 mL/min (>60); Globulin 3.8 g/dL (2.2-4.2); Glucose 98 mg/dL (74-106); Potassium 4.2 mmol/L (3.5-5.1); Sodium Level 141 mmol/L (136-145); Vancomycin, Trough Level 12.5 ug/mL (5.0-15.0)
[2022-09-29 12:00] VITALS: BP 96/75; PULSE 71; RESP 13; TEMP 36.7; O2SAT 92
--- NOTE | 2022-09-29 12:55 | PCM.RX.CS ---
Consult Pharmacy has been consulted to manage selected antiobiotic: Vancomycin Type of Consult: Follow-up Suspected Infection: Sepsis, Skin/Soft tissue Prior Doses of Antibiotics Received/Current Regimen: current dose is 1250mg q12h Labs: Sodium 141 mmol/L (136-145) 09/29/22 10:40 Potassium 4.2 mmol/L (3.5-5.1) 09/29/22 10:40 Chloride 109 mmol/L (98-107) H 09/29/22 10:40 Carbon Dioxide 27.0 mmol/L (21.0-32.0) 09/29/22 10:40 Anion Gap 5 (5-15) 09/29/22 10:40 BUN 13 mg/dL (7-18) 09/29/22 10:40 Creatinine 0.79 mg/dL (0.70-1.30) 09/29/22 10:40 Est GFR (MDRD) Af Amer 125 mL/min (>60) 09/29/22 10:40 Est GFR (MDRD) Non-Af 103 mL/min (>60) 09/29/22 10:40 BUN/Creatinine Ratio 16.4 RATIO (10-20) 09/29/22 10:40 Glucose 98 mg/dL (74-106) 09/29/22 10:40 Vancomycin Trough 12.5 ug/mL (5.0-15.0) 09/29/22 10:40 Microbiology: Microbiology 09/28/22 00:40 Wound - Buttock Gram Stain - Final 09/28/22 00:40 Wound - Buttock Wound Culture - Preliminary Gram negative dariel Gram positive organism 09/27/22 20:35 Urine, Catheterized Urine Culture - Preliminary Culture exhibits no growth. 09/27/22 20:35 Blood Culture (Wb) - Anticubital Left Blood Culture - Preliminary Coag Negative Staph 09/27/22 20:40 Blood Culture (Wb) - Right Forearm Bacteria Detection (PCR) - Final Coag Negative Staph 09/27/22 20:40 Blood Culture (Wb) - Right Forearm Blood Culture - Preliminary Coag Negative Staph 09/27/22 20:47 Nasal Secretion SARS-CoV-2 & FLU Antigen (Rapid) - Final Weight used for dosin kg Estimated Creatinine Clearance: 73ml/min Goal Trough: 15-20 mcg/mL Pharmacy Plan for Drug Dosing: The vancomycin trough drawn at 10:40 today (approx 11.75 hours after the previous dose) was 12.5. Although the next dose was scanned in by the nurse at 10:21, it was not started until after the trough was drawn at 10:40. Since the trough of 12.5 is below goal range, will increase next dose to 1500mg q12h, starting tonight since this morning's dose of 1250mg was already hung. Will order a trough before the 4th dose of 1500mg. Pharmacy Service will continue to monitor and adjust dosing as required. Follow-Up Labs: Trough Vancomycin Labs to be done on [date and time ordered]: 10/01/22 09:30
[2022-09-29] MEDS: DAKIN'S SOL HALF STRENGTH (=0.25%) 1 APPLIC TOPICAL (15:24)
--- NOTE | 2022-09-29 16:12 | CASEMGMT ---
Social Work Pt significant other Jose and other family members at pt bedside. SW met with Marjean and family and offered emotional support. Pt care status changed to comfort care earlier today. SW will remain available for support as needed by family. JERMAIN Rivera
[2022-09-29 20:00] VITALS: BP 111/58; PULSE 73; RESP 17; TEMP 36.7; O2SAT 96
[2022-09-29] MEDS: levoFLOXacin IV 750 MG/150 ML BAG 150 MG IV (21:41)
[2022-09-29] MEDS: diazePAM 5 MG Tablet 2.5 MG PO (21:46)
[2022-09-30] VITALS (8 sets, daily range): BP systolic 91–128; BP diastolic 54–75; PULSE 63–93; RESP 7–17; TEMP 36.7–37.2; O2SAT 93–98
[2022-09-30] MEDS: Morphine 4 MG/ML Syringe IV (00:09)
--- NOTE | 2022-09-30 00:53 | NURSING ---
Right hand IV infiltrated while running Levaquin and Vancomycin. Upon discovery, extremity was elevated, MD notified, IV fluids held, and IV removed. Edema was noted above and below the site. Fingertips were blue. Upon MD notification, further instruction was provided to apply warm compress and doppler for pulses. Doppler revealed radial and ulnar pulses and color had returned to fingertips. MD updated on condition and provided instruction to monitor. IV antibiotics were held at this time. POA at bedside and insisted on continuing antibiotics. MD notified and antibiotics were not administered at this time. POA verbalized desire to speak with MD and expressed willingness to change code status in order for treatment to resume. POA verbalized I will play hard-ball if I have to. This nurse attempted to explain situation and verbal de-escalation but was unsuccessful, MD notified. MD came to bedside and explained reasoning for holding antibiotics at that time and POA was in agreement with MD to resume antibiotics upon finishing Vimpat infusion. POA report of events to MD noted to be inconsistent with conversation with RN at bedside and did not express desire to change code status at that time.
--- NOTE | 2022-09-30 09:27 | CASEMGMT ---
Social Work SW spoke w/bedside RN, hospice was consulted. However, there are no rooms in the inpt hospice unit. Hospice is to contact in regard to plan. SW available to assist with discharge planning as needed. COLTEN Kumar
[2022-09-30] MEDS: Morphine 2 MG/ML Syringe IV ×2 (09:41→12:40)
[2022-09-30] MEDS: DAKIN'S SOL HALF STRENGTH (=0.25%) 1 APPLIC TOPICAL ×2 (09:46→23:08)
--- NOTE | 2022-09-30 10:00 | PN.HOSP_ITS ---
Subjective Subjective Patient resting comfortably in bed, spoke with at length and she would like to proceed with hospice discussion Objective Data Objective Data Vital Signs: Vital Signs Temp Pulse Resp BP Pulse Ox O2 Del Method O2 Flow Rate 98.7 F 75 14 126/61 H 95 Room Air 6 09/30/22 16:54 09/30/22 16:54 09/30/22 16:54 09/30/22 16:54 09/30/22 16:54 09/30/22 16:54 09/30/22 09:17 FiO2 97 09/27/22 20:52 Oxygen Flow Rate (L/min) 6 Oxygen Delivery Method Room Air Weight: 85 kg Body Mass Index (BMI) 26.9 Intake & Output: Intake and Output for Last 24 Hours 09/28/22 09/29/22 09/30/22 23:59 23:59 23:59 Intake Total 2215 / 2215 1643.33 / 1643.33 286.67 / 286.67 Output Total 1675 / 1875 1100 / 1100 Balance 2215 / 2215 -31.67 / -231.67 -813.33 / -813.33 Lab / Micro Data Result Diagrams: 09/29/22 10:40 09/29/22 10:40 Micro: Microbiology 09/28/22 00:40 Wound - Buttock Gram Stain - Final 09/28/22 00:40 Wound - Buttock Wound Culture - Preliminary Proteus mirabilis 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 09/27/22 20:35 Blood Culture (Wb) - Anticubital Left Blood Culture - Final Coag Negative Staph 09/27/22 20:40 Blood Culture (Wb) - Right Forearm Bacteria Detection (PCR) - Final Coag Negative Staph 09/27/22 20:40 Blood Culture (Wb) - Right Forearm Blood Culture - Final Staphylococcus hominis hominis 09/27/22 20:47 Nasal Secretion SARS-CoV-2 & FLU Antigen (Rapid) - Final Physical Exam Narrative Deferred, end-of-life, DNR CC Assessment & Plan Assessment/Plan (1) Sepsis: (2) Infected decubitus ulcer: PLAN: Plan #History of seizure disorder Continue Valium and Vimpat as well as Trileptal 1/10: Overnight had several seizures, Vimpat IV. Comfort measures 09/30: Still receiving Vimpat and Valium, not presently having seizure-like activity #Sepsis secondary to decubitus ulcer On presentation had lactic acidosis, respiratory rate greater than 20, heart rate of greater than 90, elevated white count, elevated temperature Cultures pending Had recently and started on Bactrim as an outpatient, vancomycin started on Levaquin ordered Admitted to the ICU, coordinator of placement consulted Fluids Lactic acid did resolve and was 1.1 Did have UA with nitrate and leuk esterase as well as bacteria, no symptoms had been reported, does have urine culture pending 09/30: Has been getting Levaquin and vancomycin, overnight physician and I both talked with at length about these medications. Is to meet with hospice today and she is willing to move forward with that #Infected stage III decubitus ulcer Wound care consult On vancomycin and Levaquin 09/29: Hospice consult #History of TBI Lives in an extended custodial #DVT prophylaxis: We will defer, end-of-life Spent 30 minutes with discussing patient and providing supportive care Charges/Coding Visit Charges Inpatient E&M: 70017 Subs Hosp L1
--- NOTE | 2022-09-30 16:24 | CASEMGMT ---
Social Work SW spoke with engineering production liaison who states pt MIRACLE Garcia has signed papers for hospice services. Currently there is no room available in the Inpatient Hospice Unit. SW met with pt to discuss options including home with hospice services or ECF with hospice services. Jose becoming upset stating she did not understand that by signing with hospice that hospice services would begin at this time, but that it was for in the future. SW provided support and education to Jose and friend Yulisa that was present with her. Jose confirms home with hospice is not an option at this time. A list of ECF providers including quality and resource use data and consistent with the patient?s preferred geographic region, medical needs, and insurance network were provided from the [facility] Guide. Pt was admitted form [facility] and Jose uncertain if she wants pt to return there. Jose to consider options today and [facility] will meet with pt again tomorrow. JERMAIN Rivera
[2022-09-30] MEDS: LORazepam 2 MG/ML Syringe 0.5 MG IV (17:37)
[2022-09-30] MEDS: 0.9% Saline Lock 10 ML Syringe IV (17:37)
[2022-09-30] MEDS: levoFLOXacin IV 750 MG/150 ML BAG 150 MG IV (21:19)
[2022-10-01 04:23] VITALS: BP 130/79; PULSE 78; RESP 14; TEMP 36.6; O2SAT 98
[2022-10-01 07:55] VITALS: BP 127/72; PULSE 77; RESP 16; TEMP 37.1; O2SAT 100
[2022-10-01] MEDS: Morphine 2 MG/ML Syringe IV ×3 (09:32→17:01)
[2022-10-01 10:10] LABS: Vancomycin, Trough Level 15.2 ug/mL (5.0-15.0)
[2022-10-01] MEDS: DAKIN'S SOL HALF STRENGTH (=0.25%) 1 APPLIC TOPICAL ×2 (10:32→22:06)
--- NOTE | 2022-10-01 10:33 | PCM.RX.CS ---
Consult Pharmacy has been consulted to manage selected antiobiotic: Vancomycin Type of Consult: Follow-up Suspected Infection: Sepsis, Skin/Soft tissue Prior Doses of Antibiotics Received/Current Regimen: Currently on 1500mg iv q12h. Labs: Sodium 141 mmol/L (136-145) 09/29/22 10:40 Potassium 4.2 mmol/L (3.5-5.1) 09/29/22 10:40 Chloride 109 mmol/L (98-107) H 09/29/22 10:40 Carbon Dioxide 27.0 mmol/L (21.0-32.0) 09/29/22 10:40 Anion Gap 5 (5-15) 09/29/22 10:40 BUN 13 mg/dL (7-18) 09/29/22 10:40 Creatinine 0.79 mg/dL (0.70-1.30) 09/29/22 10:40 Est GFR (MDRD) Af Amer 125 mL/min (>60) 09/29/22 10:40 Est GFR (MDRD) Non-Af 103 mL/min (>60) 09/29/22 10:40 BUN/Creatinine Ratio 16.4 RATIO (10-20) 09/29/22 10:40 Glucose 98 mg/dL (74-106) 09/29/22 10:40 Vancomycin Trough 15.2 ug/mL (5.0-15.0) H 10/01/22 09:30 Microbiology: Microbiology 09/28/22 00:40 Wound - Buttock Gram Stain - Final 09/28/22 00:40 Wound - Buttock Wound Culture - Preliminary Proteus mirabilis 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 09/27/22 20:35 Blood Culture (Wb) - Anticubital Left Blood Culture - Final Coag Negative Staph 09/27/22 20:40 Blood Culture (Wb) - Right Forearm Bacteria Detection (PCR) - Final Coag Negative Staph 09/27/22 20:40 Blood Culture (Wb) - Right Forearm Blood Culture - Final Staphylococcus hominis hominis 09/27/22 20:47 Nasal Secretion SARS-CoV-2 & FLU Antigen (Rapid) - Final Weight used for dosin kg Estimated Creatinine Clearance: 73ml/min Goal Trough: 15-20 mcg/mL Pharmacy Plan for Drug Dosing: Today's trough was 15.2 and in goal range of 15-20mcg/ml. Renal labs same. Will continue same dose and frequency. A repeat trough level ordered for before another 4th dose per policy. Pharmacy Service will continue to monitor and adjust dosing as required. Follow-Up Labs: Trough Vancomycin - 1.13.23 @2130 before 2200 dose
[2022-10-01 11:18] VITALS: BP 124/71; PULSE 80; RESP 16; TEMP 37.1; O2SAT 96
[2022-10-01 14:33] VITALS: BP 150/81; PULSE 89; RESP 16; TEMP 36.8; O2SAT 96
--- NOTE | 2022-10-01 14:35 | PCM.PN.HOSP ---
Subjective Subjective Patient resting comfortably in bed with at bedside. Had long discussion with and she would like to consider going back to [facility], [place] with hospice. Objective Data Objective Data Vital Signs: Vital Signs Temp Pulse Resp BP Pulse Ox O2 Del Method O2 Flow Rate 98.7 F 80 16 124/71 H 96 Room Air 3 10/01/22 11:18 10/01/22 11:18 10/01/22 11:18 10/01/22 11:18 10/01/22 11:18 10/01/22 11:18 10/01/22 04:24 FiO2 97 09/27/22 20:52 Oxygen Flow Rate (L/min) 3 Oxygen Delivery Method Room Air Weight: 83.1 kg Body Mass Index (BMI) 26.9 Intake & Output: Intake and Output for Last 24 Hours 09/29/22 09/30/22 10/01/22 23:59 23:59 23:59 Intake Total 1643.33 / 1643.33 511.67 / 511.67 1135 / 1135 Output Total 1675 / 1875 2100 / 2500 1350 / 1350 Balance -31.67 / -231.67 -1588.33 / -1988.33 -215 / -215 Lab / Micro Data Result Diagrams: 09/29/22 10:40 09/29/22 10:40 Labs: Laboratory Results - last 24 hr 10/01/22 09:30: Vancomycin Trough 15.2 H Micro: Microbiology 09/28/22 00:40 Wound - Buttock Gram Stain - Final 09/28/22 00:40 Wound - Buttock Wound Culture - Preliminary Proteus mirabilis GNR lactose steward/stewardess lounge Staphylococcus aureus Coag Negative Staph 09/27/22 20:35 Urine, Catheterized Urine Culture - Final Culture exhibits no growth. 09/27/22 20:35 Blood Culture (Wb) - Anticubital Left Blood Culture - Final Coag Negative Staph 09/27/22 20:40 Blood Culture (Wb) - Right Forearm Bacteria Detection (PCR) - Final Coag Negative Staph 09/27/22 20:40 Blood Culture (Wb) - Right Forearm Blood Culture - Final Staphylococcus hominis hominis 09/27/22 20:47 Nasal Secretion SARS-CoV-2 & FLU Antigen (Rapid) - Final Physical Exam Narrative Deferred, end-of-life, DNR CC Assessment & Plan Assessment/Plan (1) Sepsis: (2) Infected decubitus ulcer: PLAN: Plan #History of seizure disorder Continue Valium and Vimpat as well as Trileptal 09/29: Overnight had several seizures, Vimpat IV. Comfort measures 09/30: Still receiving Vimpat and Valium, not presently having seizure-like activity 10/01: Not taking p.o. at this time, did have a telehealth appointment with his epilepsy doctor today who recommended adding 0.5 mg of Ativan IV twice daily to his regimen as he did have seizure-like activity yesterday and required a dose of Ativan #Sepsis secondary to decubitus ulcer On presentation had lactic acidosis, respiratory rate greater than 20, heart rate of greater than 90, elevated white count, elevated temperature Cultures pending Had recently and started on Bactrim as an outpatient, vancomycin started on Levaquin ordered Admitted to the ICU, freelance photographer consulted Fluids Lactic acid did resolve and was 1.1 Did have UA with nitrate and leuk esterase as well as bacteria, no symptoms had been reported, does have urine culture pending 09/30: Has been getting Levaquin and vancomycin, overnight physician and I both talked with at length about these medications. Is to meet with hospice today and she is willing to move forward with that 10/01: Blood cultures growing Staph hominis hominis which is sensitive to vancomycin, buttock wound with mixed organisms, resulted primarily with Proteus however. heavily considering going back to [facility], [place] with hospice #Infected stage III decubitus ulcer Wound care consult On vancomycin and Levaquin 09/29: Hospice consult #History of TBI Lives in an extended jail #DVT prophylaxis: We will defer, end-of-life Spent 30 minutes with discussing patient and providing supportive care Charges/Coding Visit Charges Inpatient E&M: [id number] [facility] Hosp L1
[2022-10-01] MEDS: levoFLOXacin IV 750 MG/150 ML BAG 100 MG IV (21:05)
[2022-10-01 21:11] VITALS: BP 137/87; PULSE 96; RESP 16; TEMP 36.3; O2SAT 95
[2022-10-01] MEDS: LORazepam 2 MG/ML Syringe 0.5 MG IV (21:24)
[2022-10-01] MEDS: 0.9% Saline Lock 10 ML Syringe IV (21:25)
[2022-10-02 04:00] VITALS: BP 148/85; PULSE 71; RESP 14; TEMP 36.7; O2SAT 96
[2022-10-02 08:00] VITALS: BP 149/70; PULSE 80; RESP 18; TEMP 36.9; O2SAT 96
--- NOTE | 2022-10-02 09:29 | CASEMGMT ---
Social Work This social and human services assistant following up with patient significant other, Jose. Jose reports that plan is for patient to return to [facility] with [facility]. Jose would prefer the inpatient hospice unit if patient qualifies at time of discharge but is aware that the inpatient hospice unit has been full. Mail Carriers Supervisor to check status of inpatient hospice bed being open when patient is cleared for discharge. PLAN: [facility] with hospice vs. Inpatient hospice unit (pending bed opening). Bree MCLAIN, CLAUDIAS
[2022-10-02] MEDS: oxyCODONE 5 MG Tablet 10 MG PO ×2 (12:01→19:50)
[2022-10-02] MEDS: LORazepam 0.5 MG Tablet PO ×2 (12:02→22:43)
--- NOTE | 2022-10-02 12:45 | PN.HOSP_ITS ---
Subjective Subjective Resting in bed, this morning was able to answer questions and was alert though not oriented. On reevaluation he had posturing and echolalia. Objective Data Objective Data Vital Signs: Vital Signs Temp Pulse Resp BP Pulse Ox O2 Del Method O2 Flow Rate 98.5 F 80 18 149/70 H 96 Room Air 3 10/02/22 08:00 10/02/22 08:00 10/02/22 08:00 10/02/22 08:00 10/02/22 08:00 10/02/22 08:00 10/01/22 04:24 FiO2 97 09/27/22 20:52 Oxygen Flow Rate (L/min) 3 Oxygen Delivery Method Room Air Weight: 79.9 kg Body Mass Index (BMI) 26.9 Intake & Output: Intake and Output for Last 24 Hours 09/30/22 10/01/22 10/02/22 23:59 23:59 23:59 Intake Total 511.67 / 511.67 1285 / 1285 841 / 841 Output Total 2100 / 2500 1850 / 2150 800 / 800 Balance -1588.33 / -1988.33 -565 / -865 41 / 41 Lab / Micro Data Result Diagrams: 09/29/22 10:40 09/29/22 10:40 Micro: Microbiology 09/28/22 00:40 Wound - Buttock Gram Stain - Final 09/28/22 00:40 Wound - Buttock Wound Culture - Final Proteus mirabilis Escherichia coli Staphylococcus aureus Coag Negative Staph 09/27/22 20:35 Urine, Catheterized Urine Culture - Final Culture exhibits no growth. 09/27/22 20:35 Blood Culture (Wb) - Anticubital Left Blood Culture - Final Coag Negative Staph 09/27/22 20:40 Blood Culture (Wb) - Right Forearm Bacteria Detection (PCR) - Final Coag Negative Staph 09/27/22 20:40 Blood Culture (Wb) - Right Forearm Blood Culture - Final Staphylococcus hominis hominis 09/27/22 20:47 Nasal Secretion SARS-CoV-2 & FLU Antigen (Rapid) - Final Physical Exam Const Constitutional Narrative: Laying in bed, confused no overt distress HEENT head/scalp atraumatic Eyes Eyes Narrative: Extraocular movements grossly intact Neck supple Resp normal respiratory effort GI non-distended Extremity Extremity Narrative: Posturing with upper extremities Neuro Neuro Narrative: Echolalia Psych Psych Narrative: Unable to participate with exam in the afternoon Assessment & Plan Assessment/Plan (1) Sepsis: (2) Infected decubitus ulcer: PLAN: Plan #History of seizure disorder Continue Valium and Vimpat as well as Trileptal 09/29: Overnight had several seizures, Vimpat IV. Comfort measures 09/30: Still receiving Vimpat and Valium, not presently having seizure-like activity 10/01: Not taking p.o. at this time, did have a telehealth appointment with his epilepsy doctor today who recommended adding 0.5 mg of Ativan IV twice daily to his regimen as he did have seizure-like activity yesterday and required a dose of Ativan 10/02: More awake today, able to swallow meds in applesauce. Converted seizure medicine to p.o. as he lost IV access #Sepsis secondary to decubitus ulcer On presentation had lactic acidosis, respiratory rate greater than 20, heart rate of greater than 90, elevated white count, elevated temperature Cultures pending Had recently and started on Bactrim as an outpatient, vancomycin started on Levaquin ordered Admitted to the ICU, drum reel cutter consulted Fluids Lactic acid did resolve and was 1.1 Did have UA with nitrate and leuk esterase as well as bacteria, no symptoms had been reported, does have urine culture pending 09/30: Has been getting Levaquin and vancomycin, overnight physician and I both talked with at length about these medications. Is to meet with hospice today and she is willing to move forward with that 10/01: Blood cultures growing Staph hominis hominis which is sensitive to vancomycin, buttock wound with mixed organisms, resulted primarily with Proteus however. heavily considering going back to [facility] with hospice 10/02/2022: Given increased comfort with decreased infection burden feel its reasonable to finish treating for decubitus ulcer, given his culture sensitivities will change to p.o. #Infected stage III decubitus ulcer Wound care consult On vancomycin and Levaquin 09/29: Hospice consult 10/02: P.o. antibiotics #History of TBI Lives in an extended intermediate 10/02: Discussed with antibiotics and risks of superimposed infections and risks and benefits given end-of-life care and she verbalized her understanding, also discussed risks and benefits of eating and aspiration given end-of-life care and she verbalized her understanding and still would like to allow him to try to eat a diet #DVT prophylaxis: We will defer, end-of-life Spent 30 minutes with discussing patient and providing supportive care Charges/Coding Visit Charges Inpatient E&M: [id number] [facility] Hosp L2
[2022-10-02] MEDS: Clindamycin HCl 150 MG Capsule 450 MG PO ×3 (13:20→22:41)
[2022-10-02] MEDS: Lacosamide 100 MG Tablet 200 MG PO ×2 (13:21→22:42)
[2022-10-02] MEDS: DAKIN'S SOL HALF STRENGTH (=0.25%) 1 APPLIC TOPICAL ×2 (13:29→22:43)
[2022-10-02 14:30] VITALS: BP 118/63; PULSE 76; RESP 16; TEMP 37.4; O2SAT 96
--- NOTE | 2022-10-02 14:32 | CASEMGMT ---
Social Work Notified by Dr. Gaston that plan is for patient to discharge tomorrow back to [facility] with hospice services and to have spoken with patient significant other, Jose. This nursing home social worker met with Jose in patient room. Jose confirms plans to return to [facility] with hospice services through [facility]. Jose would like patient transferred via cot due to wound and wound placement. This nursing home social worker notified [facility] via careport of discharge planned for tomorrow with [facility]. [facility] confirm to be able to take patient back tomorrow. Telephone call to [facility], Caroline. This nursing home social worker communicating to Caroline that plan is for patient to discharge back to [facility] tomorrow. Caroline request for medical team to notify [facility] when time of discharge is determined. Medical team updated on above. Green Sheet completed with note to contact [facility] when time of discharge is determined. Transportation sheet for cot with Green Sheet Transfer sheet initiated. PLAN: [facility], intermediate level of care with [facility]. Bree MCLAIN, COLTEN
[2022-10-02] MEDS: oxyCODONE 5 MG Tablet PO (17:40)
[2022-10-02] MEDS: Amox/Clavulanate 875 MG Tablet PO (17:40)
[2022-10-02 19:54] VITALS: BP 107/70; PULSE 105; RESP 18; TEMP 37; O2SAT 97
[2022-10-02 19:59] VITALS: PULSE 105; O2SAT 97
[2022-10-02] MEDS: Doxycycline 100 MG CAPSULE PO (22:42)
[2022-10-03 03:00] VITALS: BP 110/69; PULSE 93; RESP 14; TEMP 35.8; O2SAT 95
[2022-10-03 04:28] VITALS: O2SAT 95
[2022-10-03] MEDS: oxyCODONE 5 MG Tablet PO ×3 (05:32→11:36)
[2022-10-03] MEDS: LORazepam 0.5 MG Tablet PO ×2 (05:33→13:34)
[2022-10-03 08:22] VITALS: BP 88/58; PULSE 86; RESP 18; TEMP 37.5; O2SAT 93
[2022-10-03 08:27] VITALS: PULSE 90
[2022-10-03] MEDS: Amox/Clavulanate 875 MG Tablet PO ×2 (08:40→16:53)
[2022-10-03] MEDS: Clindamycin HCl 150 MG Capsule 450 MG PO ×3 (08:49→16:53)
[2022-10-03] MEDS: Lacosamide 100 MG Tablet 200 MG PO (08:56)
[2022-10-03] MEDS: Doxycycline 100 MG CAPSULE PO (08:57)
[2022-10-03] MEDS: DAKIN'S SOL HALF STRENGTH (=0.25%) 1 APPLIC TOPICAL (13:06)
[2022-10-03] MEDS: Acetaminophen 325 MG Tablet 650 MG PO (13:30)
--- NOTE | 2022-10-03 13:39 | NURSING ---
Drsg change completed.
[2022-10-03 15:25] VITALS: BP 124/69; PULSE 99; RESP 18; TEMP 36.9; O2SAT 95
[2022-10-03 15:26] VITALS: PULSE 110
--- NOTE | 2022-10-03 15:32 | TREXTCAR_ITS ---
Diet Diet Order/Speech Therapy: 10/02/22 10:12 Diet: Regular - General Food consistency:: Pureed Liquid Consistency:: Regular/Thin Is pt able to select menu?: No Diet Comments: TOTAL FEED WHEN FULLY ALERT, No straws, Meds crushed in Routine Orders/Code Status Suppository Type: Dulcolax 10mg Suppository Frequency: Daily PRN Code Status: DNRCC Wound(s) coccyx: Wound Type: Pressure Injury right gluteal cleft: Wound Type: Pressure Injury left gluteal cleft: Wound Type: Pressure Injury Rt and below of gluteal cleft ulcer: Wound Type: Pressure Injury Rt Ischeal tuberosity: Wound Type: Pressure Injury Lt Ischeal tuberosity: Wound Type: Pressure Injury sacrum: Wound Type: Pressure Injury Dressing Change: Dakins moistened gauze left ischium: Wound Type: Pressure Injury Dressing Change: dry dressing right ischiuim: Wound Type: Pressure Injury Dressing Change: dressing Therapies Physical Therapy: Eval and Treat Occupational Therapy: Eval and Treat Speech Therapy: Eval and Treat Problem/Diagnosis (1) Sepsis: Status: Acute Code(s): A41.9 - Sepsis, unspecified organism (2) Infected decubitus ulcer: Status: Acute Code(s): L89.90 - Pressure ulcer of unspecified site, unspecified stage; L08.9 - Local infection of the skin and subcutaneous tissue, unspecified Plan #History of seizure disorder #Sepsis secondary to decubitus ulcer #Infected stage III decubitus ulcer #History of TBI Mr. Jacob is a 67-year-old male with a history of TBI and seizure disorder who presented to [facility] 09/27/2022 with a temperature. He lives in [facility] and was found somnolent and febrile. He was brought to the ED with SBP in the 80s and heart rate elevated. He was found to have a decubitus ulcer and was started on antibiotics. When he presented he was found to have sepsis secondary to the infected stage III decubitus ulcer as evidenced by his lactic acidosis, respiratory rate more than 20, T-max of 1-1.9, elevated white count. He was started on Vanco and Levaquin and admitted to the ICU. He began to improve on antibiotics however that end of 09/28 he had several seizures and was given Ativan and then had difficulty clearing secretions and fianc?/POA present made him DNR CC. During his hospital stay he continued to improve on antibiotics and was more comfortable, cultures resulted with staph hominis h ominis and wound culture with Proteus, E. coli, staph aureus, coag negative staph. Difficult to tell what is colonization however he was transitioned to oral antibiotics. He had no debridement or further evaluation as school was to keep him comfortable and fianc? wanted no aggressive intervention. She was agreeable to hospice and there were no inpatient hospice beds so plan was to transfer to SNF with hospice there. Mental status waxed and waned and for. He was not taking p.o. Pulled out IV was unable to replace. Did start to become more awake and had repeat swallow and was able to take meds orally. Did discuss with power of instrument panel assembler risk of aspiration with eating and agreed that given measures to keep comfortable and improve quality of life that we will continue p.o. His seizure medication were adjusted as were his pain medications. After extensive discussion with his significant other plan to send him back to [facility] with hospice. Discharge instructions as followed: DISCHARGE INSTRUCTIONS PLEASE READ ?Adjusted diet: General, food consistency, Liquid consistency regular/thin, total feed when fully alert, no straws, meds crushed in applesauce ?Continue wound care ?Your seizure medications were adjusted, you will be taking Vimpat 250 mg twice daily, Ativan 0.5 mg 3 times a day when you are no longer taking Trileptal, Valium, or clobazam ?You are on oxycodone 5 mg every 6 hours in the hospital with additional as needed medication, this can be further adjusted on an outpatient basis with hospice and your skilled facility ? You became much more comfortable in your clinical status improved with antibiotics, it is reasonable to complete 14-day course total of antibiotics. He will need 8 more days of antibiotics after tonight's doses ?Further comfort measures per hospice Allergies/Procedures Done in Hospital Allergies adhesive tape Allergy (Verified 09/27/22 20:18) NEEDS FOLLOW-UP cefepime Allergy (Verified 09/27/22 20:18) NEEDS FOLLOW-UP haloperidol Allergy (Verified 09/27/22 20:18) NEEDS FOLLOW-UP piperacillin [From Zosyn] Allergy (Verified 02/10/20 22:04) Rash quetiapine Allergy (Verified 09/27/22 20:18) NEEDS FOLLOW-UP tazobactam [From Zosyn] Allergy (Verified 02/10/20 22:04) Rash Type of Care/Length of Stay Estimated LOS: More Than 30 Days Type of Care Needed: Intermediate Rehab Potential: Poor Prognosis: Poor Additional Orders/Day of Discharge Day of Discharge: 10/03/22 Dietary and Speech Recommendations Dietitian Recommendations/Changes: Pleasure feeds if appropriate and desired by pt/family. Discharge Plan Admission Admit Date/Time: 09/27/22 22:37 Primary Reason for Your Visit: Infected ulcer Attending Provider: Erika Gaston Primary Care Provider: [facility],[place] Consulting Providers: Wu Shirley ; Evangelista Boone ; Sarah Oro ; Sukhdev Isabel ; Alexandra Russell ; Carli Chiu ; Dee Johnson POLICE SHIFT COMMANDER Instructions Patient Instructions: Hospice: As Nears Additional Instructions / Restrictions: DISCHARGE INSTRUCTIONS PLEASE READ ?Adjusted diet: General, food consistency, Liquid consistency regular/thin, total feed when fully alert, no straws, meds crushed in applesauce ?Continue wound care ?Your seizure medications were adjusted, you will be taking Vimpat 250 mg twice daily, Ativan 0.5 mg 3 times a day when you are no longer taking Trileptal, Valium, or clobazam ?You are on oxycodone 5 mg every 6 hours in the hospital with additional as needed medication, this can be further adjusted on an outpatient basis with hospice and your skilled facility ? You became much more comfortable in your clinical status improved with antibiotics, it is reasonable to complete 14-day course total of antibiotics. He will need 8 more days of antibiotics after tonight's doses ?Further comfort measures per hospice Discharge Orders/Prescriptions Prescriptions: New clindamycin HCl 150 mg Capsule 450 mg PO 4X/DAY 8 Days Qty: 102 0RF lorazepam 0.5 mg Tablet 0.5 mg PO TID 3 Days Qty: 9 0RF doxycycline monohydrate 100 mg Capsule 100 mg PO BID 8 Days Qty: 17 0RF amoxicillin-pot clavulanate 875-125 mg Tablet 875 mg PO BIDCM 8 Days Qty: 0 0RF oxycodone 5 mg Tablet 5 mg PO Q6 3 Days Qty: 12 0RF oxycodone 5 mg Tablet 10 mg PO Q4H PRN PRN (Reason: Pain Score 4-10) 3 Days Qty: 10 0RF Continued acetaminophen 650 mg Suppository 650 mg TN Q4H PRN (Reason: Fever Or Pain) melatonin 3 mg Tablet 9 mg PO QHS acetaminophen 650 mg Tablet 650 mg PO Q4H PRN (Reason: Fever Or Pain) lacosamide 50 mg Tablet 50 mg PO BID lacosamide 200 mg Tablet 200 mg PO BID Discontinued calcium carbonate 500 MG tablet 500 mg PO DAILY ascorbic acid (vitamin C) 1,000 MG tablet 1,000 mg PO DAILY omeprazole 20 MG tablet,delayed release (DR/EC) 20 mg PO QHS oxcarbazepine 150 mg Tablet 150 mg PO QHS sennosides [senna] 8.6 mg Tablet 8.6 mg PO DAILY clonidine 0.1 mg/24 hr Patch Weekly 1 patch TRANSDERMAL QWEEK sulfamethoxazole-trimethoprim [Bactrim DS] 800-160 mg Tablet 1 tab PO BID potassium chloride [K-Dur] 20 mEq Tablet,Er Particles/Crystals 20 meq PO DAILY aspirin [Baby Aspirin] 81 mg Tablet,Chewable 81 mg PO DAILY vitamin B complex [B Complex] Capsule 1 cap PO DAILY diazepam 5 mg Tablet 2.5 mg PO BID Theragran-M Tablet 1 tab PO DAILY clobazam 10 mg Tablet 10 mg PO QHS cholecalciferol (vitamin D3) 125 mcg (5,000 unit) Tablet 5,000 unit PO DAILY Referrals / [facility]: [facility] [[facility] - Disposition Disposition (needs filled in before D/C Order can be placed): Nursing Home Facility
--- NOTE | 2022-10-03 16:03 | PCM.DC.SUM ---
Providers Date of Admission: 09/27/22 Date of Discharge: 10/03/22 Primary Care Physician: [facility] Consultations 09/27/22 23:50 Consult: District Commercial Superintendent / Pulmonary Medicine Routine Consulting Provider: Evangelista Boone Reason for Consult: Sepsis with no clear etiology EMERGENT Consult: No Notified: Yes Date Notified: 09/27/22 Time Notified: 22:45 Method of Notification: Text Consult: Onc/Wound/laboratory tester Routine Comment: Reason for Consult:: Infected sacral decubitus ulcer 10/01/22 15:06 Consult: Hospice / Palliative Care Routine Consulting Provider: [facility] Reason for Consult: end of life, inpt hospice EMERGENT Consult: No MD Notified: Yes Date Notified: 09/30/22 Time Notified: 10:00 Method of Notification: Verbal Reason For Visit: SEPSIS 2/2 infected decubitus ulcer Diagnosis Discharge Diagnosis (1) Sepsis: Status: Acute Code(s): A41.9 - Sepsis, unspecified organism (2) Infected decubitus ulcer: Status: Acute Code(s): L89.90 - Pressure ulcer of unspecified site, unspecified stage; L08.9 - Local infection of the skin and subcutaneous tissue, unspecified Plan #History of seizure disorder #Sepsis secondary to decubitus ulcer #Infected stage III decubitus ulcer #History of TBI Medications at Discharge Home Medications acetaminophen 650 mg rectal suppository 650 mg CA Q4H PRN Fever Or Pain 09/27/22 acetaminophen 650 mg tablet 650 mg PO Q4H PRN Fever Or Pain 09/27/22 lacosamide 200 mg tablet 200 mg PO BID 09/27/22 lacosamide 50 mg tablet 50 mg PO BID 09/27/22 melatonin 3 mg tablet 9 mg PO QHS 09/27/22 amoxicillin 875 mg-potassium clavulanate 125 mg tablet 875 mg PO BIDCM 8 days #0 tabs 10/03/22 clindamycin HCl 150 mg capsule 450 mg PO 4X/DAY 8 days #102 caps 10/03/22 doxycycline monohydrate 100 mg capsule 100 mg PO BID 8 days #17 caps 10/03/22 lorazepam 0.5 mg tablet 0.5 mg PO TID 3 days #9 tabs 10/03/22 oxycodone 5 mg tablet 5 mg PO Q6 3 days #12 tabs 10/03/22 oxycodone 5 mg tablet 10 mg PO Q4H PRN PRN Pain Score 4-10 3 days #10 tabs 10/03/22 Hospital Course Summary of Care Provided Minutes Spent on Discharge: 35 Hospital Course: Mr. Jacob is a 67-year-old male with a history of TBI and seizure disorder who presented to [facility] 09/27/2022 with a temperature. He lives in [facility] and was found somnolent and febrile. He was brought to the ED with SBP in the 80s and heart rate elevated. He was found to have a decubitus ulcer and was started on antibiotics. When he presented he was found to have sepsis secondary to the infected stage III decubitus ulcer as evidenced by his lactic acidosis, respiratory rate more than 20, T-max of 1-1.9, elevated white count. He was started on Vanco and Levaquin and admitted to the ICU. He began to improve on antibiotics however that end of 09/28 he had several seizures and was given Ativan and then had difficulty clearing secretions and fianc?/POA present made him DNR CC. During his hospital stay he continued to improve on antibiotics and was more comfortable, cultures resulted with staph hominis hominis and wound culture with Proteus, E. coli, staph aureus, coag negative staph. Difficult to tell what is colonization however he was transitioned to oral antibiotics. He had no debridement or further evaluation as school was to keep him comfortable and fianc? wanted no aggressive intervention. She was agreeable to hospice and there were no inpatient hospice beds so plan was to transfer to SNF with hospice there. Mental status waxed and waned and for. He was not taking p.o. Pulled out IV was unable to replace. Did start to become more awake and had repeat swallow and was able to take meds orally. Did discuss with power of automation sales manager risk of aspiration with eating and agreed that given measures to keep comfortable and improve quality of life that we will continue p.o. His seizure medication were adjusted as were his pain medications. After extensive discussion with his significant other plan to send him back to [facility] with hospice. Discharge instructions as followed: DISCHARGE INSTRUCTIONS PLEASE READ ?Adjusted diet: General, food consistency, Liquid consistency regular/thin, total feed when fully alert, no straws, meds crushed in applesauce ?Continue wound care ?Your seizure medications were adjusted, you will be taking Vimpat 250 mg twice daily, Ativan 0.5 mg 3 times a day when you are no longer taking Trileptal, Valium, or clobazam ?You are on oxycodone 5 mg every 6 hours in the hospital with additional as needed medication, this can be further adjusted on an outpatient basis with hospice and your skilled facility ? You became much more comfortable in your clinical status improved with antibiotics, it is reasonable to complete 14-day course total of antibiotics. He will need 8 more days of antibiotics after tonight's doses ?Further comfort measures per hospice Physical Exam Const Constitutional Narrative: Laying in bed, confused no overt distress HEENT head/scalp atraumatic Eyes Eyes Narrative: Extraocular movements grossly intact, largely staring off Neck supple Resp normal respiratory effort GI non-distended Extremity Extremity Narrative: Contracted upper extremities Skin Skin Narrative: Has decub ulcer, currently w/ dressing on Neuro Neuro Narrative: Non verbal at this time Psych Psych Narrative: Unable to participate with exam Weight / BMI Weight Weight: 80 kg Body Mass Index (BMI) 26.9 ABG / Lab / Microbiology Data Result Diagrams: 09/29/22 10:40 09/29/22 10:40 Microbiology: Microbiology 09/28/22 00:40 Wound - Buttock Gram Stain - Final 09/28/22 00:40 Wound - Buttock Wound Culture - Final Proteus mirabilis Escherichia coli Staphylococcus aureus Coag Negative Staph 09/27/22 20:35 Urine, Catheterized Urine Culture - Final Culture exhibits no growth. 09/27/22 20:35 Blood Culture (Wb) - Anticubital Left Blood Culture - Final Coag Negative Staph 09/27/22 20:40 Blood Culture (Wb) - Right Forearm Bacteria Detection (PCR) - Final Coag Negative Staph 09/27/22 20:40 Blood Culture (Wb) - Right Forearm Blood Culture - Final Staphylococcus hominis hominis 09/27/22 20:47 Nasal Secretion SARS-CoV-2 & FLU Antigen (Rapid) - Final Meaningful Use Info Meaningful Use Diagnoses (Choose all that apply): None applicable Discharge Plan Admission Admit Date/Time: 09/27/22 22:37 Primary Reason for Your Visit: Infected ulcer Attending Provider: Erika Gaston Primary Care Provider: [facility],[place] Consulting Providers: Wu Shirley ; Evangelista Boone ; Sarah Oro ; Sukhdev Isabel ; Alexandra Russell ; Carli Chiu ; Dee Johnson HEAD USHER Instructions Patient Instructions: Hospice: As Nears Additional Instructions / Restrictions: DISCHARGE INSTRUCTIONS PLEASE READ ?Adjusted diet: General, food consistency, Liquid consistency regular/thin, total feed when fully alert, no straws, meds crushed in applesauce ?Continue wound care ?Your seizure medications were adjusted, you will be taking Vimpat 250 mg twice daily, Ativan 0.5 mg 3 times a day when you are no longer taking Trileptal, Valium, or clobazam ?You are on oxycodone 5 mg every 6 hours in the hospital with additional as needed medication, this can be further adjusted on an outpatient basis with hospice and your skilled facility ? You became much more comfortable in your clinical status improved with antibiotics, it is reasonable to complete 14-day course total of antibiotics. He will need 8 more days of antibiotics after tonight's doses ?Further comfort measures per hospice Discharge Orders/Prescriptions Prescriptions: New clindamycin HCl 150 mg Capsule 450 mg PO 4X/DAY 8 Days Qty: 102 0RF lorazepam 0.5 mg Tablet 0.5 mg PO TID 3 Days Qty: 9 0RF doxycycline monohydrate 100 mg Capsule 100 mg PO BID 8 Days Qty: 17 0RF amoxicillin-pot clavulanate 875-125 mg Tablet 875 mg PO BIDCM 8 Days Qty: 0 0RF oxycodone 5 mg Tablet 5 mg PO Q6 3 Days Qty: 12 0RF oxycodone 5 mg Tablet 10 mg PO Q4H PRN PRN (Reason: Pain Score 4-10) 3 Days Qty: 10 0RF Continued acetaminophen 650 mg Suppository 650 mg CA Q4H PRN (Reason: Fever Or Pain) melatonin 3 mg Tablet 9 mg PO QHS acetaminophen 650 mg Tablet 650 mg PO Q4H PRN (Reason: Fever Or Pain) lacosamide 50 mg Tablet 50 mg PO BID lacosamide 200 mg Tablet 200 mg PO BID Discontinued calcium carbonate 500 MG tablet 500 mg PO DAILY ascorbic acid (vitamin C) 1,000 MG tablet 1,000 mg PO DAILY omeprazole 20 MG tablet,delayed release (DR/EC) 20 mg PO QHS oxcarbazepine 150 mg Tablet 150 mg PO QHS sennosides [senna] 8.6 mg Tablet 8.6 mg PO DAILY clonidine 0.1 mg/24 hr Patch Weekly 1 patch TRANSDERMAL QWEEK sulfamethoxazole-trimethoprim [Bactrim DS] 800-160 mg Tablet 1 tab PO BID potassium chloride [K-Dur] 20 mEq Tablet,Er Particles/Crystals 20 meq PO DAILY aspirin [Baby Aspirin] 81 mg Tablet,Chewable 81 mg PO DAILY vitamin B complex [B Complex] Capsule 1 cap PO DAILY diazepam 5 mg Tablet 2.5 mg PO BID Theragran-M Tablet 1 tab PO DAILY clobazam 10 mg Tablet 10 mg PO QHS cholecalciferol (vitamin D3) 125 mcg (5,000 unit) Tablet 5,000 unit PO DAILY Referrals / Follow Up: [facility] [Primary Care Provider[facility] - Disposition Disposition (needs filled in before D/C Order can be placed): Group Home Facility Charges/Coding Visit Charges Inpatient E&M: 13309 Disch Hosp >30min
[2022-10-03] MEDS: oxyCODONE 5 MG Tablet 10 MG PO (17:08)
--- NOTE | 2022-10-03 18:18 | NURSING ---
Called report to Jayshree at [facility].
== END 2022-10-03 18:30 | disposition skilled nursing facility (03) | DRG 872 ==
LOC: ED 22:42 → ICU 23:08 → MS3 09-30 18:37
PROVIDERS: Admitting Provider Hospitalist; Emergency Provider Emergency Medicine; Visit Provider Internal Medicine
DX: A41.9 Sepsis, unspecified organism (principal); E87.20 Acidosis, unspecified; L89.150 Pressure ulcer of sacral region, unstageable; G40.909 Epilepsy, unspecified, not intractable, without status epilepticus; B95.7 Other staphylococcus as the cause of diseases classified elsewhere; B96.4 Proteus (mirabilis) (morganii) as the cause of diseases classified elsewhere; B95.61 Methicillin susceptible Staphylococcus aureus infection as the cause of diseases classified elsewhere; B96.20 Unspecified Escherichia coli [E. coli] as the cause of diseases classified elsewhere; Z66 Do not resuscitate; Z79.891 Long term (current) use of opiate analgesic; Z79.899 Other long term (current) drug therapy; Z87.820 Personal history of traumatic brain injury
CPT/HCPCS: 36415; 71045; 80053; 80202; 81001; 83605; 85025; 85610; 85730; 87040; 87070; 87077; 87086; 87149; 87186; 87205; 87428; 87811; 92610; 93005; 97802; 99285; J7030; J7040; J7050; A4216; C9254; J3490

== ENCOUNTER → 2023-03-18 | Outpatient (REF) | payer SELFPAY ==
[2023-03-18 16:10] LABS: Color, Urine Straw (Yellow); Glucose, Dipstick Normal (Normal); Ketone-Dipstick Negative (Negative); Leukocyte Esterase-Dipstick 100 /ul (Negative); Nitrite-Dipstick Negative (Negative); Occult Blood-Urine Negative /ul (Negative); Protein-Dipstick Negative (Negative); Urine Bilirubin Dipstick Negative (Negative); Urine Clarity Clear (Clear); Urine Urobilinogen Normal (Normal)
== END ==
LOC: OLS.SW 16:01
PROVIDERS: Visit Provider Internal Medicine
DX: N39.0 Urinary tract infection, site not specified (principal)
CPT/HCPCS: 81002; 87077; 87086; 87088; 87186

== ENCOUNTER 2023-09-05 13:20 | Emergency (ER) | payer MEDICARE, MEDICAID, SELFPAY ==
[2023-09-05 13:21] VITALS: BP 129/68; PULSE 102; RESP 18; TEMP 36.2; O2SAT 94
[2023-09-05 13:35] VITALS: BMI 31.8
[2023-09-05 14:03] VITALS: O2SAT 94
--- NOTE | 2023-09-05 14:30 | RAD_ITS ---
STUDY: XR Chest 1 View 09/05/2023 2:38 PM REASON FOR EXAM: Male, 68 years old. Cough COMPARISON: 09/27/2022 TECHNIQUE: XR Chest 1 View FINDINGS: There is no demonstrated pleural abnormality. Enlarged heart size. Normal mediastinum. Normal tanmay. Prominent appearing increased interstitial lung markings. Normal visualized pulmonary arteries. There is atherosclerotic calcification of the aortic arch with tortuosity. There are diffuse degenerative changes of the visualized thoracic spine. There is degenerative osteoarthritis of the bilateral shoulders. There are no acute findings of the upper abdomen. RAD/Chest 1 View (Portable) IMPRESSION: There are no acute findings. Electronically Signed: Aroldo Goldman MD at 15:08 EST ,
--- NOTE | 2023-09-05 14:33 | EX.ED.DYSGE1 ---
HPI History of Present Illness Chief Complaint: Fever Informant: patient and spouse/S.O. Onset/Context/Timing Onset: Today Context: Gradual Onset Timing: Continuous Quality: Aching Location: Right flank Worsened by: Nothing Relieved by: Nothing Narrative Narrative: Patient presents with a fever that began today. states that the fever was up to 103.8. states patient started with a cough last night. states the patient has been unable to produce any sputum. Patient has a history of a TBI and is a poor informant. states the patient has been complaining of pain in his right flank. stated the pain was described as aching. also noted some dark urine and some sediment in his urine today. Patient denies any chest pain or shortness of breath. Patient denies any nausea or vomiting. Patient denies any abdominal pain. [facility] Medical History Exposure to Agent [place] History of intracranial hemorrhage Inguinal hernia Seizures TBI (traumatic brain injury) Home Medications acetaminophen 650 mg rectal suppository 650 mg TN Q4H PRN Fever Or Pain 09/27/22 [History Last Taken Unknown] acetaminophen 650 mg tablet 650 mg PO Q4H PRN Fever Or Pain 09/27/22 [History Last Taken Unknown] melatonin 3 mg tablet 9 mg PO QHS 09/27/22 [History Last Taken Unknown] lorazepam 0.5 mg tablet 0.5 mg PO TID 3 days #9 tabs 10/03/22 [Rx Last Taken Unknown] oxycodone 5 mg tablet 5 mg PO Q6 3 days #12 tabs 10/03/22 [Rx Last Taken Unknown] oxycodone 5 mg tablet 10 mg (2 x 5 mg) PO Q4H PRN PRN Pain Score 4-10 3 days #10 tabs 10/03/22 [Rx Last Taken Unknown] AA no.8 343 mg-carnitine 20 mg-grape 10 mg-cocoa 56 [id number] capsule (GABAdone) 1 cap PO TID 09/05/23 [History Last Taken Unknown] acetic acid 0.25 % irrigation solution 60 ml irrigation DAILY 09/05/23 [History Last Taken Unknown] aluminum-mag hydroxide-simethicone 200 mg-200 mg-20 mg/5 mL oral susp (Antacid) 30 ml PO Q4H PRN dyspepsia 09/05/23 [History Last Taken Unknown] bisacodyl 10 mg rectal suppository 10 mg TN DAILY PRN constipation 09/05/23 [History Last Taken Unknown] bromelains 100 mg chewable tablet 200 mg PO TID 09/05/23 [History Last Taken Unknown] ciprofloxacin HCl 500 mg tablet 500 mg PO BID #14 TABLETS 09/05/23 [Rx Last Taken Unknown] clobazam 10 mg tablet 10 mg PO DAILY 09/05/23 [History Last Taken Unknown] dextrose 40 % oral gel (Glucose Gel) 20 g PO Q15M PRN hypoglycemia 09/05/23 [History Last Taken Unknown] glucagon 1 mg/mL solution for injection 1 mg IM Q20M PRN hypoglycemia 09/05/23 [History Last Taken Unknown] ibuprofen 200 mg tablet (Advil) 400 mg PO Q6H 09/05/23 [History Last Taken Unknown] lacosamide 200 mg tablet (Vimpat) 200 mg PO BID 09/05/23 [History Last Taken Unknown] lacosamide 50 mg tablet (Vimpat) 50 mg PO BID 09/05/23 [History Last Taken Unknown] magnesium hydroxide 400 mg/5 mL oral suspension (Milk of Magnesia) 30 ml PO DAILY PRN constipation 09/05/23 [History Last Taken Unknown] magnesium malate, chelate 141.7 mg PO BID 09/05/23 [History Last Taken Unknown] mineral oil (Fleet Mineral Oil enema) 118 ml TN DAILY PRN constipation 09/05/23 [History Last Taken Unknown] omeprazole 20 mg capsule,delayed release 20 mg PO DAILY 09/05/23 [History Last Taken Unknown] oxybutynin chloride 5 mg tablet 5 mg PO TID 09/05/23 [History Last Taken Unknown] sennosides 8.8 mg/5 mL oral syrup (senna) 8.8 mg PO BID 09/05/23 [History Last Taken Unknown] taurine 500 mg capsule (Pure Taurine) 500 mg PO DAILY 09/05/23 [History Last Taken Unknown] thiamine HCl (vitamin B1) 100 mg tablet 100 mg PO BID 09/05/23 [History Last Taken Unknown] Allergy/AdvReac Type Severity Reaction Status Date / Time adhesive tape Allergy NEEDS Verified 09/05/23 13:21 FOLLOW-UP cefepime Allergy NEEDS Verified 09/05/23 13:21 FOLLOW-UP haloperidol Allergy NEEDS Verified 09/05/23 13:21 FOLLOW-UP piperacillin [From Zosyn] Allergy Rash Verified 09/05/23 13:21 quetiapine Allergy NEEDS Verified 09/05/23 13:21 FOLLOW-UP tazobactam [From Zosyn] Allergy Rash Verified 09/05/23 13:21 Family History Other Cancer Surgical History H/O parathyroidectomy Social History Smoking Status: Never smoker ROS ROS ED Constitutional Constitutional ED: Reports fever(s); Denies chills Eyes Eyes: Denies blurry vision or change in vision ENT ENT ED: Denies rhinorrhea or sore throat Cardiovascular Cardiovascular: Denies chest pain or palpitations Respiratory/Chest Respiratory/Chest: Reports cough; Denies dyspnea Gastrointestinal Gastrointestinal: Denies nausea or vomiting Genitourinary Genitourinary ED: Denies dysuria or hematuria Musculoskeletal Musculoskeletal: Reports back pain; Denies neck pain Integumentary Denies abscess or rash Neurologic Neurologic: Denies headache(s) or weakness Allergic/Immunologic Allergic/Immunologic ED: Denies mouth swelling or urticaria EXAM Physical Exam Const Vital Signs: 09/05/23 13:21 09/05/23 14:03 09/05/23 14:04 Temperature 97.1 F L Temperature Source Temporal Pulse Rate 102 H Respiratory Rate 18 Respiratory Effort Normal Respiratory Depth Normal Respiratory Pattern Normal Normal Blood Pressure 129/68 H Blood Pressure Mean 88 Pulse Ox 94 Oxygen Delivery Method Room Air Room Air 09/05/23 15:26 Temperature 97.8 F Temperature Source Temporal Pulse Rate 76 Respiratory Rate 18 Respiratory Effort Respiratory Depth Respiratory Pattern Blood Pressure 127/72 H Blood Pressure Mean 90 Pulse Ox 97 Oxygen Delivery Method Room Air Positive well nourished and well developed General Appearance ED: well developed and NAD HEENT Reports moist mucous membranes Neck supple and no JVD Resp normal respiratory effort Auscultation: rhonchi throughout Cardio regular rate and regular rhythm GI non-tender Inspection: abdominal distention Palpation: soft Neuro CN's II-XII intact bilaterally and no sensory deficits noted Sensorium / Orientation: alert Motor Exam: strength 5/5 throughout Skin no rashes or lesions noted MDM MDM MDM Narrative Medical decision making narrative: Differential diagnosis includes pneumonia, urinary tract infection, electrolyte abnormality, sepsis, coagulopathy, COVID-19 infection, influenza infection, and pancreatitis. CBC will be obtained to assess for leukocytosis and anemia. Comprehensive metabolic profile will be obtained to assess for hepatic function, renal function, and electrolyte abnormality. Urinalysis will be obtained to assess for urinary tract infection. Lactate will be obtained to assess for sepsis. PT was INR and PTT will be obtained to assess for coagulopathy. COVID-19 rapid antigen will be obtained to assess for COVID-19 infection. Influenza A and influenza B antigens will be obtained to assess for influenza infection. Blood cultures will be obtained to assess for sepsis. Chest x-ray will be obtained to assess for pneumonia and pneumothorax. Lab Data Attestation: I reviewed the patient's lab results. Lab results narrative: CBC was reviewed. There is a mild leukocytosis of 13.1. The remainder was within normal limits. 60 comprehensive metabolic profile was reviewed and was essentially within normal limits. Lactate was slightly elevated at 2.9. Lipase was reviewed and was normal at 27. PT was INR and PTT were within normal limits. Urinalysis was reviewed. Leukocyte esterase was 500 with 50-100 white blood cells. There is 1+ bacteria. Labs: Laboratory Results - last 24 hr 09/05/23 09/05/23 14:50 15:06 WBC 13.2 H RBC 5.35 Hgb 14.4 Hct 45.3 MCV 84.7 MCH 26.9 L MCHC 31.8 L RDW Std Deviation 43.9 RDW Coeff of [place] 14.3 Plt Count 243 MPV 9.8 Immature Gran % (Auto) 0.400 Neut % (Auto) 75.6 H Lymph % (Auto) 18.9 L [place] % (Auto) 4.7 Eos % (Auto) 0.2 Baso % (Auto) 0.2 Absolute Neuts (auto) 10.0 H Absolute Lymphs (auto) 2.50 Nucleated RBC % 0 PT 13.6 INR 1.0 APTT 27.6 Sodium 141 Potassium 3.8 Chloride 106 Carbon Dioxide 28.0 Anion Gap 7 BUN 14 Creatinine 1.06 Estim Creat Clear Calc 67.91 Est GFR (MDRD) Af Amer 89 Est GFR (MDRD) Non-Af 74 BUN/Creatinine Ratio 13.2 Glucose 105 Lactic Acid 2.9 H* Calcium 8.0 L Total Bilirubin 0.70 AST 10 L ALT 15 L Alkaline Phosphatase 81 Total Protein 6.6 Albumin 2.9 L Globulin 3.7 Albumin/Globulin Ratio 0.8 L Lipase 27 Urine Color Yellow Urine Clarity Clear Urine pH 7.0 Ur Specific [place] 1.010 Urine Protein 30 H Urine Glucose (UA) Normal Urine Ketones Negative Urine Occult Blood 150 H Urine Nitrite Negative Urine Bilirubin Negative Urine Urobilinogen Normal Ur Leukocyte Esterase 500 H Urine RBC 5-10 SEEN Urine WBC 50-100 SEEN Ur Squamous Epith Cells 0 SEEN Urine Bacteria 1+ Urine Mucus 0 SEEN Radiography Diagnostic Testing: Clinical Impression(s) from Imaging Studies Chest X-Ray 09/05/23 14:30 IMPRESSION: There are no acute findings. Electronically Signed: Aroldo Goldman MD at 15:08 EST Reading Location ID and State: [facility] / [place] , Service support , Portable 1 view chest x-ray was obtained. On my independent interpretation, lung choudhary are clear. There is normal cardiac silhouette. Bony thorax is normal. There is no acute process noted. Radiologist also interpreted the x-ray and agrees. Treatment and Re-Evaluation :: Patient and spouse were advised of the findings. Patient was given a bolus of IV fluids. Patient was given a dose of Cipro here. Blood cultures and urine cultures were obtained. Patient was given a prescription for Cipro. would prefer to have the patient discharged back to extended-care facility under hospice. I am agreeable with this. was instructed to return if worse in any way. understood and was agreeable with the plan. All questions were answered. Discharge Plan Triage Chief Complaint: Fever Other Complaint: Edema Shortness of Breath ED Provider: Heron Arce Dx/Rx/DC Orders Clinical Impression: Urinary tract infection, Lactic acidosis Instructions: ED Bladder Infection, Male (Adult) Prescriptions: New ciprofloxacin HCl [ciprofloxacin HCl] 500 mg tablet 500 mg PO BID Qty: 14 0RF No Action acetaminophen 650 mg Suppository 650 mg TN Q4H PRN (Reason: Fever Or Pain) melatonin 3 mg Tablet 9 mg PO QHS acetaminophen 650 mg Tablet 650 mg PO Q4H PRN (Reason: Fever Or Pain) lorazepam 0.5 mg Tablet 0.5 mg PO TID 3 Days Qty: 9 0RF oxycodone 5 mg Tablet 5 mg PO Q6 3 Days Qty: 12 0RF oxycodone 5 mg Tablet 10 mg PO Q4H PRN PRN (Reason: Pain Score 4-10) 3 Days Qty: 10 0RF acetic acid 0.25 % solution 60 ml irrigation DAILY Rx Instructions: Wednesday- - Wednesday for sediment alum-mag hydroxide-simeth [Antacid] 200-200-20 mg/5 mL suspension 30 ml PO Q4H PRN (Reason: dyspepsia) bisacodyl 10 mg suppository 10 mg TN DAILY PRN (Reason: constipation) bromelains 100 mg tablet,chewable 200 mg PO TID Rx Instructions: administer after a meal clobazam 10 mg tablet 10 mg PO DAILY Rx Instructions: give 0.5 tablet mineral oil [Fleet Mineral Oil] Enema 118 ml TN DAILY PRN (Reason: constipation) Rx Instructions: discard any unused portion GABAdone [id number] mg capsule 1 cap PO TID glucagon 1 mg/mL recon soln 1 mg IM Q20M PRN (Reason: hypoglycemia) Rx Instructions: until target blood sugar attained dextrose [Glucose Gel] 40 % gel 20 g PO Q15M PRN (Reason: hypoglycemia) Rx Instructions: until symptoms of low blood sugar are controlled ibuprofen [Advil] 200 mg tablet 400 mg PO Q6H magnesium malate, chelate 125 mg magnesium capsule 141.7 mg PO BID magnesium hydroxide [Milk of Magnesia] 400 mg/5 mL suspension 30 ml PO DAILY PRN (Reason: constipation) omeprazole 20 mg capsule,delayed release(DR/EC) 20 mg PO DAILY oxybutynin chloride 5 mg tablet 5 mg PO TID sennosides [senna] 8.8 mg/5 mL syrup 8.8 mg PO BID Pure Taurine 500 mg capsule 500 mg PO DAILY thiamine HCl (vitamin B1) 100 mg tablet 100 mg PO BID lacosamide [Vimpat] 200 mg tablet 200 mg PO BID lacosamide [Vimpat] 50 mg tablet 50 mg PO BID [facility] Care Provider: [facility] [Primary [facility] Provider] - Disposition Disposition: Home, Self Care
[2023-09-05 15:03] LABS: Basophil# 0.03 X10^3/uL; Basophil% 0.2 % (0-1); Eosinophil# 0.03 X10^3/uL; Eosinophils% 0.2 % (0-5); Hematocrit 45.3 % (40-54); Hemoglobin 14.4 g/dL (13.0-16.5); Lymphocyte % 18.9 % (19-41); Mean Corp Hgb Conc 31.8 g/dL (32-36); Mean Corpuscular Hgb 26.9 pg (27.0-32.0); Mean Corpuscular Volume 84.7 fL (80-94); Mean Platelet Vol. 9.8 fl (6.2-12.0); Monocyte# 0.62 X10^3/uL; Monocyte% 4.7 % (0-10); NRBC Flagged by Analyzer 0 % (0-5); Neutrophil # 9.97 X10^3/uL (2.7-7.7); Neutrophil % 75.6 % (47-70); Platelet Count 243 K/mm3 (150-450); RBC Distribution Width CV 14.3 % (11.6-14.6); RBC Distribution Width SD 43.9 fl (35.1-43.9); Red Blood Count 5.35 M/mm3 (4.6-6.2); White Blood Count 13.2 K/mm3 (4.4-11.0)
[2023-09-05 15:20] LABS: Prothrombin Time (Protime)PT. 13.6 SECONDS (11.7-14.9)
[2023-09-05 15:21] LABS: Partial Thromboplast Time 27.6 Seconds (24.1-36.2)
[2023-09-05 15:22] LABS: ALB/GLOB Ratio 0.8 RATIO (0.9-2.4); AST(SGOT) 10 U/L (15-37); Alanine Aminotransfer ALT/SGPT 15 U/L (16-61); Albumin, Serum 2.9 g/dL (3.2-5.0); Alkaline Phosphatase 81 U/L (45-117); Anion Gap 7 (5-15); BUN 14 mg/dL (7-18); BUN/Creat Ratio 13.2 RATIO (10-20); Chloride 106 mmol/L (98-107); Creatinine, Serum 1.06 mg/dL (0.70-1.30); EST Glomerular Filtration Rate 74 mL/min (>60); Est Glom Filt Rate - Afr Amer 89 mL/min (>60); Estimated Creatinine Clearance 67.91 ml/min; Globulin 3.7 g/dL (2.2-4.2); Glucose 105 mg/dL (74-106); Lipase 27 U/L (13-75); Potassium 3.8 mmol/L (3.5-5.1); Protein, Total 6.6 g/dL (6.4-8.2); Sodium Level 141 mmol/L (136-145)
[2023-09-05 15:25] LABS: Mucous, Urine 0 SEEN /hpf (<or=2+); Squamous Epithelial Cells - UA 0 SEEN /hpf (0-5)
[2023-09-05 15:26] VITALS: BP 127/72; PULSE 76; RESP 18; TEMP 36.6; O2SAT 97
[2023-09-05 15:29] LABS: Color, Urine Yellow (Yellow); Glucose, Dipstick Normal (Normal); Ketone-Dipstick Negative (Negative); Leukocyte Esterase-Dipstick 500 /ul (Negative); Nitrite-Dipstick Negative (Negative); Occult Blood-Urine 150 /ul (Negative); Protein-Dipstick 30 mg/dl (Negative); Urine Bilirubin Dipstick Negative (Negative); Urine Clarity Clear (Clear); Urine Urobilinogen Normal (Normal)
[2023-09-05 15:31] LABS: Lactic Acid 2.9 mmol/L (0.4-1.9)
[2023-09-05 15:36] LABS: Bacteria 1+ /hpf (None Seen); Red Blood Cells-Urine 5-10 SEEN /hpf (0-5); White Blood Cells 50-100 SEEN /hpf (0-5)
[2023-09-05 16:00] VITALS: BP 122/74; PULSE 80; RESP 18; TEMP 36.6; O2SAT 97
[2023-09-05] MEDS: 0.9% Normal Saline (1000mL) 1,000 ML 1000 ML IV (17:26)
[2023-09-05] MEDS: Ciprofloxacin 400 MG/200 ML BAG 200 MG IV (17:26)
[2023-09-05 17:59] VITALS: PULSE 80; RESP 18; O2SAT 97
[2023-09-05 18:59] LABS: Reflex Lactate? Y
[2023-09-05 20:14] VITALS: RESP 16
== END 2023-09-05 20:14 | disposition home or self-care (01) ==
PROVIDERS: Emergency Provider Emergency Medicine; Visit Provider Emergency Medicine
DX: N39.0 Urinary tract infection, site not specified (principal); E87.20 Acidosis, unspecified; R60.9 Edema, unspecified; R06.02 Shortness of breath; Z79.899 Other long term (current) drug therapy
CPT/HCPCS: 71045; 80053; 81001; 83605; 83690; 85025; 85610; 85730; 87040; 87077; 87086; 87088; 87186; 87428; 96365; 99285; J7030; A4216; J0744